=== PATIENT | female | born 1990 | race Caucasian/White ===

== ENCOUNTER 2023-09-30 10:37 | Outpatient (CLI) | payer MEDICARE, BC, SELFPAY ==
[2023-10-02 09:09] LABS: HIV Screen 4th Generation wRfx Non Reactive (Non Reactive)
[2023-10-02 12:15] LABS: Rapid Plasma Reagin Ab Titer Non Reactive titer (NonRea<1:1)
[2023-10-04 20:35] LABS: Neisseria gonorrhoeae, NAA Negative (Negative)
[2023-10-07 08:28] LABS: HBsAg Screen Negative; Hep A Ab, IGM Negative
[2023-10-07 08:29] LABS: Hep B Core Ab, IgM Negative; Trichomonas Vaginalis, NAA Negative
[2023-10-07 08:32] LABS: HSV 2 IgG, Type Spec <0.91
[2023-10-08 10:00] LABS: HCV Ab Non Reactive
== END 2023-09-30 23:59 | disposition home or self-care (01) ==
LOC: LAB.DROPOF 10-01 10:37
PROVIDERS: PCP Nurse Practitioner; Visit Provider Nurse Practitioner
DX: Z11.3 Encounter for screening for infections with a predominantly sexual mode of transmission (principal); Z11.4 Encounter for screening for human immunodeficiency virus [HIV]; Z72.51 High risk heterosexual behavior
CPT/HCPCS: 80074; 86593; 86695; 86703; 86790; 87491; 87591; 87661; G0432

== ENCOUNTER 2023-12-18 23:26 | Emergency (ER) | payer MEDICARE, BC, SELFPAY ==
[2023-12-18 23:28] VITALS: BP 124/82; PULSE 72; RESP 18; TEMP 36.9; O2SAT 95; BMI 38.3
--- NOTE | 2023-12-18 23:46 | XR_ITS ---
PROCEDURE INFORMATION: Exam: XR Right Hand Exam date and time: 12/18/2023 11:45 PM Age: 32 years old Clinical indication: Injury or trauma; Other: Punched wall; Other: Pain TECHNIQUE: Imaging protocol: Radiologic exam of the right hand. Views: 3 or more views. Total images: 3 COMPARISON: CR XR HAND RT MIN 3V 12/18/2023 11:45 PM FINDINGS: Bones/joints: No acute fracture or joint dislocation. No concerning bone lesions or calcifications. Unremarkable joint spaces. Soft tissues: Unremarkable soft tissues. IMPRESSION: Negative right hand.
--- NOTE | 2023-12-18 23:46 | XR_ITS ---
PROCEDURE INFORMATION: Exam: XR Right Wrist Exam date and time: 12/18/2023 11:45 PM Age: 32 years old Clinical indication: Injury or trauma; Other: Punched wall; Other: Pain TECHNIQUE: Imaging protocol: Radiologic exam of the right wrist. Views: 3 or more views. Total images: 3 COMPARISON: CR XR WRIST RT MIN 3V 12/18/2023 11:45 PM FINDINGS: Bones/joints: No acute fracture or joint dislocation. No concerning bone lesions or calcifications. Joint spaces are well maintained. Normal carpal alignment. Soft tissues: Unremarkable soft tissues. IMPRESSION: Negative right wrist.
--- NOTE | 2023-12-18 23:46 | XR_ITS ---
PROCEDURE INFORMATION: Exam: XR Right Forearm Exam date and time: 12/18/2023 11:45 PM Age: 32 years old Clinical indication: Injury or trauma; Other: Punched wall; Other: Pain TECHNIQUE: Imaging protocol: Radiologic exam of the right forearm. Views: 2 views. Total images: 2 COMPARISON: CR XR HAND RT MIN 3V 12/18/2023 11:45 PM FINDINGS: Bones/joints: No acute fracture or joint dislocation. No concerning bone lesions or calcifications. Joint spaces are unremarkable. Soft tissues: Unremarkable soft tissues. IMPRESSION: Negative right forearm.
--- NOTE | 2023-12-18 23:47 | HMH.EDGENADL ---
Discharge Plan Disposition Patient Disposition: Home, Self-Care Condition: Good Prescriptions Prescriptions: No Action buspirone 15 mg tablet PO DAILY Patient Comments: TAKE 1 TABLET BY MOUTH EVERY MORNING DIRECTED lamotrigine 150 mg tablet 300 mg PO DAILY Patient Comments: TAKE 2 TABLETS BY MOUTH EVERY MORNING DIRECTED naltrexone 50 mg tablet PO DAILY Patient Comments: TAKE 1 TABLET BY MOUTH ONCE DAILY DIRECTED propranolol 20 mg tablet 20 mg PO DAILY Patient Comments: TAKE 1 TABLET BY MOUTH EVERY MORNING NEEDED ibuprofen 800 mg tablet 800 mg PO Q8H Qty: 90 2RF varenicline 0.5 mg (11)- 1 mg (42) tablets,dose pack See Rx Instructions PO PER PKG DIR Qty: 53 0RF Rx Instructions: PO PER PKG DIR Lo Loestrin Fe 1 mg-10 mcg (24)/10 mcg (2) tablet 1 tab PO DAILY Qty: 28 6RF drospirenone-ethinyl estradiol [REMINGTON (28)] 3-0.02 mg tablet 1 tab PO DAILY Qty: 28 6RF Referrals Follow up/Referrals: iMmi Ordonez APRN [Primary Care Provider] - See instructions Cecilio Oviedo DO [Staff Physician] - See instructions (TTP R scaphoid without fx on XR, in spica splint, needs repeat XR for recheck scaphoid) Activity Restrictions/Add. Instructions Additional Instructions/Restrictions: You were evaluated in the ER. You are appropriate for discharge at this time. Keep the splint clean and dry, do not let it get wet, if it gets wet or the splint cracks, comes off, or you have other concerns, return to the ER for replacement. Follow-up with orthopedics in 7 to 10 days for repeat x-rays. Take Tylenol or ibuprofen if needed for pain, do not exceed recommended doses on the bottle. Regarding constipation, continue taking your stool softener and also take a one-time dose of 3 capfuls of MiraLAX. After this, continue with once daily 1 capful of MiraLAX until you are having regular, soft bowel movements. Drink plenty of water while you do this so you do not become dehydrated. Also make an appoint with your primary care physician for reevaluation of this problem in a few days. Return to the ER with new, worsening, or otherwise concerning symptoms. Clinical Impressions Clinical Impression: Pain of right thumb, Constipation Discharge ED Provider: Butler,Mikalah General Adult HPI General Chief complaint: Extremity Injury, Upper Stated complaint: AO 2230 right thumb pain Time Seen by Provider: 12/18/23 23:43 Mode of Arrival: Ambulatory Source of Information: Patient Limitations: Physical Limitations Description of Symptoms (Recalled from ER Triage Doc. by RN): Patient presented to the ED for pain to right thumb/wrist pain. Patient stated she was arguing with her significant other and went to swing an extension cord and it got caught on the door frame and pulled her thumb back and also hit the door frame. Patient rates pain 7/10 and does have some tingling but no numbness and can move thumb. History of Present Illness HPI narrative: 32-year-old female with history of histoplasmosis presents to the ER for concerns of right thumb/wrist pain. Patient states she was arguing with her significant other and swung her hand with an extension cord and it, getting her right thumb caught on the door frame. She struck her hand and thumb on the door frame but is complaining of pain primarily at the base of her thumb radiating up to the distal forearm. Patient states she has slight tingling, no numbness, she is able to flex and extend the thumb as well as fully move her hand and wrist. Patient has not taken anything for pain today and is requesting Tylenol. Later in the encounter, patient added that she has been having constipation after she took too many antidiarrheal medications. She states she has only had a few very small bowel movements in the last 4 to 5 days. She has had mild nausea but no vomiting. She continues to eat and drink normally. No dysuria, abdominal distention, or localizing abdominal pain. She reports having taken a stool softener and tried a mineral oil enema without significant success. Related Data Home Medications Medication Instructions Recorded Confirmed buspirone 15 mg tablet mg PO DAILY anxiety 12/07/23 12/07/23 lamotrigine 150 mg tablet 300 mg PO DAILY PTSD 12/07/23 12/07/23 naltrexone 50 mg tablet mg PO DAILY 12/07/23 12/07/23 propranolol 20 mg tablet 20 mg PO DAILY anxiety 12/07/23 12/07/23 Previous Rx's Medication Instructions Recorded ibuprofen 800 mg tablet 800 mg PO Q8H #90 tabs 11/25/23 drospirenone 3 mg-ethinyl 1 tab PO DAILY #28 tabs 11/26/23 estradiol 0.02 mg tablet (REMINGTON (28)) norethindrone 1 mg-ethinyl 1 tab PO DAILY #28 tabs 11/26/23 estradiol 10 mcg (24)-iron 10 mcg(2) tablet (Lo Loestrin Fe) varenicline 0.5 mg (11)-1 mg (42) See Rx Instructions PO PER PKG DIR 12/07/23 tablets in a dose pack #53 tabs Allergies Allergy/AdvReac Type Severity Reaction Status Date / Time Iodinated Contrast Media Allergy Mild Verified 12/07/23 11:40 iodine Allergy Mild Verified 12/07/23 11:40 sertraline [From Zoloft] Allergy Mild Verified 12/07/23 11:40 [facility] Disclaimer: The information contained in this section may have been updated after the patient was seen, as this information can be updated by other users. Medical History (Updated 12/19/23 @ 00:54 by Rebekah Butler MD) Tobacco dependence due to chewing tobacco Nicotine dependence Screen for STD (sexually transmitted disease) Surgical History Hx of adenoidectomy Hx of section Hx of knee surgery Hx of carpal tunnel repair Hx of tonsillectomy Hx of tubal ligation Family History (Updated 12/07/23 @ 11:48 by Nora Carrasco MA) Grandmother Coronary artery disease Diabetes Grandfather Coronary artery disease Diabetes Hypertension Father Coronary artery disease Mother Diabetes Other Heart attack Social History Smoking Status: Never smoker alcohol intake: never current occupational status: employed Travel in the last 8 weeks: Inside the [place] ROS Obtained: Yes All systems reviewed & no additional complaints except as documented Musculoskeletal Musculoskeletal: Reports arthralgias, Denies joint swelling, Denies limited range of motion, Denies numbness and Reports tingling Neurologic Neurologic: Denies numbness and Reports tingling Physical Exam General General appearance: alert and in no apparent distress Head Head exam: atraumatic and normocephalic Eye Eye exam: Present PERRL and EOMI ENT ENT exam: Present mucous membranes moist Neck Neck exam: Present normal inspection and full ROM Chest Chest inspection: Present symmetric chest wall rise Respiratory Respiratory exam: Absent respiratory distress or stridor Cardiovascular Cardiovascular exam: Present regular rate and normal rhythm Abdominal Exam Abdominal exam: Present soft; Absent distention or tenderness Extremities Exam Extremities exam: Present full ROM and tenderness (Right scaphoid, also tender along the posterior aspect of the right thumb, no deformity, range of motion intact, neurovascularly intact with brisk capillary refill); Absent joint swelling Neurological Exam Neurological exam: Present alert and oriented X3; Absent motor sensory deficit Psychiatric Psychiatric exam: Present normal affect and normal mood Skin Skin exam: Present warm and dry Medical Decision Making [place] Inquiry Pt receiving controlled substance: No Vital Signs: 12/18/23 23:28 12/19/23 01:02 Temperature 98.5 F 98.1 F Temperature Source Oral Oral Pulse Rate 78 Pulse Rate [Right Brachial] 72 Respiratory Rate 18 18 Blood Pressure 122/88 Blood Pressure [Right Arm] 124/82 Blood Pressure Mean [Right Arm] 96 02 Sat by Pulse Oximetry 95 Oxygen Delivery Method Room Air Room Air Orders (Tests/Meds): ED MEDICATIONS Discontinued Medications Generic Name Dose Route Start Last Admin Trade Name Joceq PRN Reason Stop Dose Admin Acetaminophen 1,000 mg 12/18/23 23:48 12/18/23 23:51 Acetaminophen 500mg Tab PO 12/18/23 23:49 1,000 mg ONCE ONE Administration ORDERS Category Date Time Status Hand XR right minimum 3 views [XR hand RT min 3V] Stat Exams 12/18/23 23:46 Completed XR forearm RT 2V Stat Exams 12/18/23 23:46 Completed XR wrist RT min 3V Stat Exams 12/18/23 23:46 Completed Medical Decision Narrative: In summary, this 32-year-old female presents to the emergency department today with right thumb pain. On initial evaluation patient is hemodynamically stable, afebrile, tenderness to palpation over the posterior aspect of the right thumb as well as the right scaphoid, neurovascularly intact, no deformity or obvious swelling. Differential diagnosis includes but is not limited to fracture, dislocation, scaphoid injury, sprain, soft tissue injury. Based on these concerns, I ordered x-ray imaging. Patient has history of tubal ligation. test not ordered. Also discussed constipation with the patient when she added this information later in the encounter. I believe this is a side effect of the antidiarrheal medication she has taken, abdomen is nonacute, no localizing symptoms, soft, nondistended. I do not believe she requires extensive workup for this at this time. Recommended continued use of stool softener as well as MiraLAX. Patient received Tylenol for treatment. X-ray right upper extremity personally interpreted demonstrates no acute osseous injury, see radiology read for final interpretation Patient was placed in right thumb spica splint. See procedure note. Patient was given instructions on symptomatic management, follow up instructions and referral to orthopedics, and return precautions for the emergency department. Patient indicated understanding and was discharged in stable condition. Procedures Orthopedic Splinting/Casting Injury #1: Side: right Upper Extremity Injury Location: hand Upper Extremity Immobilizer: thumb spica Additional Comments: Splint personally applied and adjusted by me Materials: soft roll, plaster, elastic bandage Neurovascularly intact before and after splinting Tolerated procedure well No post-splint imaging necessary Post Cast/Splinting Neuro Status: intact and no change Post Cast/Splinting Vasc Status: intact and no change Critical Care Critical Care Time Critical Care Time: No
[2023-12-18] MEDS: ACETAMINOPHEN 500MG TAB 1000 MG PO (23:51)
--- NOTE | 2023-12-19 00:54 | PC.NURSE ---
Placed a thumb spica slint on patient using 2in palster. Dr. Butler confirmed splint was properly placed.
[2023-12-19 01:02] VITALS: BP 122/88; PULSE 78; RESP 18; TEMP 36.7; O2SAT 99
== END 2023-12-19 01:04 | disposition home or self-care (01) ==
PROVIDERS: Emergency Provider Emergency Medicine; PCP Nurse Practitioner
DX: M79.644 Pain in right finger(s) (principal); M25.531 Pain in right wrist; X50.1XXA Overexertion from prolonged static or awkward postures, initial encounter; K59.00 Constipation, unspecified
CPT/HCPCS: 29125; 73090; 73110; 73130; 99283

== ENCOUNTER 2023-12-27 14:51 | Emergency (ER) | payer MEDICARE, BC, SELFPAY ==
[2023-12-27 14:53] VITALS: BP 125/81; PULSE 81; RESP 14; TEMP 36.7; O2SAT 100; BMI 37.0
--- NOTE | 2023-12-27 16:44 | PC.NURSE ---
ROUNDED ON PT AND OBTAINED VITALS ON PT AND MOVED HER TO ROOM 12 AT THIS TIME
--- NOTE | 2023-12-27 16:45 | XR_ITS ---
PROCEDURE INFORMATION: Exam: XR Right Hand Exam date and time: 12/27/2023 5:24 PM Age: 33 years old Clinical indication: Injury or trauma; Other: Bent thumb; Other: Pain TECHNIQUE: Imaging protocol: Radiologic exam of the right hand. Views: 3 or more views. COMPARISON: CR XR HAND RT MIN 3V 12/18/2023 11:45 PM FINDINGS: Bones/joints: No fractures, dislocations, or bone lesions. No significant joint space narrowing or widening. Soft tissues: No soft tissue gas, radiopaque foreign bodies, or masses. IMPRESSION: No acute findings in the right hand.
--- NOTE | 2023-12-27 16:51 | ED_ITS ---
<Statement entered by Kishor Nguyễn MD - 12/27/23 18:17> I was consulted by the JULIAN, and we discussed the complexity of the problems being addressed. I approved the treatment and management plan for this patient's care in the emergency department, thus performing a substantive portion of the medical decision making. Kishor Nguyễn MD Discharge Plan Disposition Patient Disposition: Home, Self-Care Condition: Good Chief Complaint: PAIN Prescriptions Prescriptions: No Action buspirone 15 mg tablet PO DAILY Patient Comments: TAKE 1 TABLET BY MOUTH EVERY MORNING DIRECTED lamotrigine 150 mg tablet 300 mg PO DAILY Patient Comments: TAKE 2 TABLETS BY MOUTH EVERY MORNING DIRECTED naltrexone 50 mg tablet PO DAILY Patient Comments: TAKE 1 TABLET BY MOUTH ONCE DAILY DIRECTED propranolol 20 mg tablet 20 mg PO DAILY Patient Comments: TAKE 1 TABLET BY MOUTH EVERY MORNING NEEDED ibuprofen 800 mg tablet 800 mg PO Q8H Qty: 90 2RF varenicline 0.5 mg (11)- 1 mg (42) tablets,dose pack See Rx Instructions PO PER PKG DIR Qty: 53 0RF Rx Instructions: PO PER PKG DIR Lo Loestrin Fe 1 mg-10 mcg (24)/10 mcg (2) tablet 1 tab PO DAILY Qty: 28 6RF drospirenone-ethinyl estradiol [REMINGTON (28)] 3-0.02 mg tablet 1 tab PO DAILY Qty: 28 6RF Referrals Follow up/Referrals: Davion Schmitz MD [Primary Care Provider] - See instructions Activity Restrictions/Add. Instructions Additional Instructions/Restrictions: Please keep your scheduled orthopedics appointment on Wednesday. Follow-up with your PCP as needed. Return to the ER as needed. Clinical Impressions Clinical Impression: Injury of right thumb Discharge ED Provider: Kishor Nguyễn General Adult HPI General Chief complaint: PAIN Stated complaint: needs new cast on arm Time Seen by Provider: 12/27/23 16:50 Mode of Arrival: Ambulatory Source of Information: Patient Limitations: No Limitations Description of Symptoms (Recalled from ER Triage Doc. by RN): pt presents to ED with c/o right thumb pain. pt reports that she has a half cast on that right thumb, but pt reports that something bumped up against her thumb and she thinks that she may have broken it. History of Present Illness HPI narrative: Patient presents for evaluation of right thumb pain. Patient injured her hand approximately 1 week ago and no acute fracture was seen at that time but patient was placed in a spica splint and referred to orthopedics and her appointment is this current Wednesday. Today however her thumb got caught in her clothing and hyperextended the thumb breaking the splint and causing her pain. She denies any numbness or tingling and has painful but full range of motion. Related Data Home Medications Medication Instructions Recorded Confirmed buspirone 15 mg tablet mg PO DAILY anxiety 12/07/23 12/07/23 lamotrigine 150 mg tablet 300 mg PO DAILY PTSD 12/07/23 12/07/23 naltrexone 50 mg tablet mg PO DAILY 12/07/23 12/07/23 propranolol 20 mg tablet 20 mg PO DAILY anxiety 12/07/23 12/07/23 Previous Rx's Medication Instructions Recorded ibuprofen 800 mg tablet 800 mg PO Q8H #90 tabs 11/25/23 drospirenone 3 mg-ethinyl 1 tab PO DAILY #28 tabs 11/26/23 estradiol 0.02 mg tablet (REMINGTON (28)) norethindrone 1 mg-ethinyl 1 tab PO DAILY #28 tabs 11/26/23 estradiol 10 mcg (24)-iron 10 mcg(2) tablet (Lo Loestrin Fe) varenicline 0.5 mg (11)-1 mg (42) See Rx Instructions PO PER PKG DIR 12/07/23 tablets in a dose pack #53 tabs Allergies Allergy/AdvReac Type Severity Reaction Status Date / Time Iodinated Contrast Media Allergy Mild Verified 12/07/23 11:40 iodine Allergy Mild Verified 12/07/23 11:40 sertraline [From Zoloft] Allergy Mild Verified 12/07/23 11:40 [facility] Disclaimer: The information contained in this section may have been updated after the patient was seen, as this information can be updated by other users. Medical History (Updated 12/27/23 @ 18:13 by ELIER Walters) Tobacco dependence due to chewing tobacco Nicotine dependence Screen for STD (sexually transmitted disease) Surgical History Hx of adenoidectomy Hx of section Hx of knee surgery Hx of carpal tunnel repair Hx of tonsillectomy Hx of tubal ligation Family History (Updated 12/07/23 @ 11:48 by Nora Carrasco MA) Grandmother Coronary artery disease Diabetes Grandfather Coronary artery disease Diabetes Hypertension Father Coronary artery disease Mother Diabetes Other Heart attack Social History Smoking Status: Current every day smoker alcohol intake: never current occupational status: employed Travel in the last 8 weeks: Inside the [place] ROS Obtained: Yes Systems reviewed as appropriate & no additional complaints except as documented Physical Exam General General appearance: alert and in no apparent distress Respiratory Respiratory exam: Present normal lung sounds bilaterally Cardiovascular Cardiovascular exam: Present regular rate and normal rhythm Extremities Exam Extremities exam: Present other (Patient has pain to palpation at the MCP joint of the first digit of the right hand but no evidence of bony deformity patient is neurovascular intact distally patient has no loss of range of motion other than being painful.) Neurological Exam Neurological exam: Present alert and oriented X3 Medical Decision Making Medical Records Medical records reviewed: Yes I reviewed the patient's medical records. [place] Inquiry Pt receiving controlled substance: No Vital Signs: 12/27/23 14:53 Temperature 98.0 F Temperature Source Oral Pulse Rate [Left Radial] 81 Respiratory Rate 14 Blood Pressure [Right Arm] 125/81 Blood Pressure Mean [Right Arm] 95 02 Sat by Pulse Oximetry 100 Oxygen Delivery Method Room Air Orders (Tests/Meds): ORDERS Category Date Time Status Hand XR right minimum 3 views [XR hand RT min 3V] Stat Exams 12/27/23 16:45 Completed Medical Decision Narrative: In summary patient is a 33-year-old female who presents to the emergency department for evaluation of right thumb injury. Patient is hemodynamically stable upon arrival, afebrile. Physical exam is remarkable for tenderness at the end CP joint of the thumb without evidence of bony deformity or loss of range of motion motor or sensory. Differential diagnosis includes sprain versus strain versus fracture. Initial workup will be conducted with plain film x-ray. Initial workup reviewed by me shows no acute fracture both today nor previously. Given this patient placed back in a premade thumb spica splint and is advised to keep her orthopedic appointment on Wednesday. Critical Care Critical Care Time Critical Care Time: No
[2023-12-27 18:24] VITALS: BP 126/68; PULSE 78; RESP 13; TEMP 36.7; O2SAT 98
== END 2023-12-27 18:25 | disposition home or self-care (01) ==
PROVIDERS: Emergency Provider Emergency Medicine; PCP Family Medicine
DX: S69.91XA Unspecified injury of right wrist, hand and finger(s), initial encounter (principal); W22.8XXA Striking against or struck by other objects, initial encounter
CPT/HCPCS: 73130; 99283

== ENCOUNTER 2024-02-06 00:13 | Emergency (ER) | payer MEDICARE, BC, SELFPAY ==
[2024-02-06 00:15] VITALS: BP 126/82; PULSE 78; RESP 20; TEMP 36.8; O2SAT 96; BMI 34.5
--- NOTE | 2024-02-06 00:28 | XR_ITS ---
PROCEDURE INFORMATION: Exam: XR Chest Exam date and time: 02/06/2024 12:32 AM Age: 33 years old Clinical indication: Cough and wheezing; Additional info: Cough, L wheeze, previous sclerosing mediastinum TECHNIQUE: Imaging protocol: Radiologic exam of the chest. Views: 2 views. COMPARISON: No relevant prior studies available. FINDINGS: Lungs: See Pleural spaces finding. Pleural spaces: Moderate right pleural effusion with adjacent parenchymal consolidation versus atelectasis. Heart/Mediastinum: No evidence of mediastinal widening or cardiac silhouette enlargement; the mediastinum and heart appear within normal limits for contour and size. Bones/joints: No evidence of acute osseous abnormalities within the visualized portions of the thoracic spine and ribs. Osseous structures appear appropriate for patient age. IMPRESSION: Moderate right pleural effusion with adjacent parenchymal consolidation versus atelectasis.
--- NOTE | 2024-02-06 00:28 | HMH.EDGENADL ---
Discharge Plan Disposition Patient Disposition: Home, Self-Care Prescriptions Prescriptions: New albuterol sulfate 90 mcg/actuation HFA aerosol inhaler 3 inh inhalation Q3H PRN (Reason: shortness of breath or wheezing) Qty: 6.7 0RF Rx Instructions: until breathing returns to target peak flow/parameters [id number] [Bromfed DM] 2-30-10 mg/5 mL syrup 5 ml PO Q6H PRN (Reason: cold symptoms) Qty: 118 0RF levofloxacin 750 mg tablet 750 mg PO DAILY 7 Days Qty: 7 0RF prednisone 50 mg tablet 50 mg PO DAILY 5 Days Qty: 5 0RF No Action buspirone 15 mg tablet PO DAILY Patient Comments: TAKE 1 TABLET BY MOUTH EVERY MORNING DIRECTED lamotrigine 150 mg tablet 300 mg PO DAILY Patient Comments: TAKE 2 TABLETS BY MOUTH EVERY MORNING DIRECTED naltrexone 50 mg tablet PO DAILY Patient Comments: TAKE 1 TABLET BY MOUTH ONCE DAILY DIRECTED propranolol 20 mg tablet 20 mg PO DAILY Patient Comments: TAKE 1 TABLET BY MOUTH EVERY MORNING NEEDED varenicline 0.5 mg (11)- 1 mg (42) tablets,dose pack See Rx Instructions PO PER PKG DIR Qty: 53 0RF Rx Instructions: PO PER PKG DIR ondansetron HCl 4 mg tablet 4 mg PO Q8H PRN (Reason: nausea and vomiting) Qty: 20 0RF ketorolac 10 mg tablet 10 mg PO Q8H PRN (Reason: pain) Qty: 10 0RF Rx Instructions: maximum total duration of 5 days from all oral, intranasal, or parenteral formulations polyethylene glycol 3350 [Miralax] 17 gram/dose powder 17 g PO DAILY Qty: 510 0RF docusate sodium [Dulcolax Stool Softener (dss)] 100 mg capsule 100 mg PO BID Qty: 60 2RF Lo Loestrin Fe 1 mg-10 mcg (24)/10 mcg (2) tablet 1 tab PO DAILY Qty: 28 6RF drospirenone-ethinyl estradiol [REMINGTON (28)] 3-0.02 mg tablet 1 tab PO DAILY Qty: 28 6RF Referrals Follow up/Referrals: Davion Schmitz MD [Primary Care Provider] - See instructions Activity Restrictions/Add. Instructions Additional Instructions/Restrictions: At this time it was felt you are safe to be discharged home. If new or worsening symptoms please do not hesitate to return the emergency department. Please take your medication as prescribed. If symptoms persist please follow-up with your family doctor in 5 to 7 days. Clinical Impressions Clinical Impression: Pneumonia Print Language Print Language: Georgian Discharge ED Provider: Kishor Nguyễn General Adult HPI General Chief complaint: Upper Respiratory Infection Stated complaint: Cough, congestion, headache, lethargic Time Seen by Provider: 02/06/24 00:19 Mode of Arrival: Ambulatory Source of Information: Patient and Relative Limitations: No Limitations Description of Symptoms (Recalled from ER Triage Doc. by RN): Patient reports productive cough, congestion, facial pain, and diarrhea since yesterday. Patient reports that there are multiple individuals with similar illness at her place of employment. Patient denies fevers at home. Has been taking dayquil at home with minimal improvement. History of Present Illness HPI narrative: Patient is a 33-year-old female past medical history of previous histoplasmosis, sclerosing mediastinum not currently needing any active management by cardiothoracic surgery per patient who presents to the emergency department for evaluation of cough and diarrhea. Onset was acute, over the last 24 hours. Positive sick contacts at work and she started that [employer] 2 days ago. Diarrhea is nonbloody. No vomiting. No other acute complaints at this time. Related Data Home Medications ?Medication ?Instructions ?Recorded ?Confirmed buspirone 15 mg tablet mg PO DAILY anxiety 12/07/23 01/28/24 lamotrigine 150 mg tablet 300 mg PO DAILY PTSD 12/07/23 01/28/24 naltrexone 50 mg tablet mg PO DAILY 12/07/23 01/28/24 propranolol 20 mg tablet 20 mg PO DAILY anxiety 12/07/23 01/28/24 Previous Rx's ?Medication ?Instructions ?Recorded
[2024-02-06 00:46] VITALS: PULSE 77
[2024-02-06 00:59] VITALS: BP 117/77; PULSE 77; RESP 16; TEMP 36.7; O2SAT 97
== END 2024-02-06 01:01 | disposition home or self-care (01) ==
PROVIDERS: Emergency Provider Emergency Medicine; PCP Family Medicine
DX: J18.9 Pneumonia, unspecified organism (principal); R05.9 Cough, unspecified; R09.81 Nasal congestion; G50.1 Atypical facial pain; R19.7 Diarrhea, unspecified; Z87.891 Personal history of nicotine dependence
CPT/HCPCS: 71046; 99283; J7620

== ENCOUNTER 2024-03-15 20:35 | Outpatient (CLI) | payer MEDICARE, BC, SELFPAY ==
[2024-03-15 21:47] LABS: HIV (1&2) Antibody Rapid NONREACTIVE (NONREACTIVE)
[2024-03-17 05:14] LABS: HCV Ab Non Reactive (Non Reactive)
== END 2024-03-15 23:59 | disposition home or self-care (01) ==
LOC: LAB.DROPOF 20:37
PROVIDERS: PCP Obstetrics & Gynecology; Visit Provider Obstetrics & Gynecology
DX: N89.8 Other specified noninflammatory disorders of vagina (principal); Z11.4 Encounter for screening for human immunodeficiency virus [HIV]
CPT/HCPCS: 86803; 87389

== ENCOUNTER 2024-03-22 14:50 | Outpatient (CLI) | payer MEDICARE, BC, SELFPAY ==
[2024-03-24 11:14] LABS: Rapid Plasma Reagin Ab Titer Non Reactive titer (NonRea<1:1)
[2024-03-24 20:14] LABS: Neisseria gonorrhoeae, NAA Negative (Negative)
== END 2024-03-22 23:59 | disposition home or self-care (01) ==
LOC: LAB 14:51
PROVIDERS: PCP Family Medicine; Visit Provider Obstetrics & Gynecology
DX: Z11.3 Encounter for screening for infections with a predominantly sexual mode of transmission (principal); N80.9 Endometriosis, unspecified; N93.9 Abnormal uterine and vaginal bleeding, unspecified; N94.6 Dysmenorrhea, unspecified; N39.3 Stress incontinence (female) (male); Z87.42 Personal history of other diseases of the female genital tract; Z72.51 High risk heterosexual behavior
CPT/HCPCS: 36415; 86593; 87491; 87591

== ENCOUNTER 2024-09-20 04:53 | Emergency (ER) | payer MEDICARE, SELFPAY ==
[2024-09-20 04:58] VITALS: BP 123/93; PULSE 104; O2SAT 97
--- NOTE | 2024-09-20 04:59 | XR_ITS ---
PROCEDURE INFORMATION: Exam: XR Chest Exam date and time: 09/20/2024 5:34 AM Age: 33 years old Clinical indication: Cough; Additional info: Cough SOA chest tightness, HX fibrosis and histo TECHNIQUE: Imaging protocol: Radiologic exam of the chest. Views: 2 views. COMPARISON: CR XR CHEST 2V 02/06/2024 12:32 AM FINDINGS: Lungs: Chronic pleural-parenchymal opacities within the right hemithorax with pleural thickening, atelectasis and fibrosis with associated volume loss, similar to the prior examination. Left lung is relatively clear. Pleural spaces: No significant pleural effusions. No pneumothorax. Heart/Mediastinum: Cardiac size is normal and mediastinal contour stable with mild shift of the cardiomediastinal silhouette toward the right. Bones/joints: Mild thoracic dextroscoliosis and spondylosis. IMPRESSION: Chronic pleural-parenchymal changes within the right hemithorax, similar in appearance to 02/06/2024. No definite acute findings.
[2024-09-20 05:00] VITALS: BP 135/87; PULSE 101; O2SAT 96
[2024-09-20 05:01] VITALS: BP 123/93; PULSE 104; RESP 16; TEMP 36.8; O2SAT 97; BMI 29.6
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
[2024-09-20 05:10] VITALS: PULSE 92; PULSE 97
[2024-09-20 05:15] VITALS: BP 135/87; PULSE 96; RESP 18; O2SAT 100
[2024-09-20 05:19] LABS: Adenovirus,PCR Not Detected (NotDetected); Bordetella Pertussis Not Detected (NotDetected); Chlamydophila Pneumoniae, PCR Not Detected (NotDetected); Coronavirus 19, PCR Not Detected (NotDetected); Coronavirus 229E Not Detected (NotDetected); Coronavirus NL63 Not Detected (NotDetected); Coronavirus OC43 Not Detected (NotDetected); Coronovirus HKU1,PCR Not Detected (NotDetected); Human Metapneumovirus Not Detected (NotDetected); Influenza A, PCR Not Detected (NotDetected); Influenza AH1, 2009 Not Detected (NotDetected); Influenza AH1, PCR Not Detected (NotDetected); Influenza AH3,PCR Not Detected (NotDetected); Influenza B, PCR Not Detected (NotDetected); Mycoplasma Pneumoniae, PCR Not Detected (NotDetected); Parainfluenza 1, PCR Not Detected (NotDetected); Parainfluenza 2, PCR Not Detected (NotDetected); Parainfluenza 3, PCR Not Detected (NotDetected); Parainfluenza 4, PCR Not Detected (NotDetected); Respiratory Syncytial Virus Not Detected (NotDetected); Rhinovirus/Enterovirus Not Detected (NotDetected)
[2024-09-20 05:24] LABS: VBG Base Excess -0.6 mmol/L (-2.4-2.3); VBG HCO3 23.9 mmol/L (23-30); VBG Oxygen Saturation 98.3 % (50-70); VBG PCO2 37.5 mmol/L (35-51); VBG PH 7.42 mmol/L (7.31-7.41)
[2024-09-20 05:26] LABS: Basophils # 0.1 K/mm3 (0-0.2); Basophils % 0.4 % (0.1-2.0); Eosinophils % 0.3 % (0.1-12.0); Hematocrit 35.4 % (37.0-47.0); Hemoglobin 12.7 g/dL (12.2-16.2); Lymphocytes # 1.7 K/mm3 (0.7-4.5); Lymphocytes % 13.9 % (10-50); Mean Corpuscular HGB Conc 35.9 g/dL (31.8-35.4); Mean Corpuscular Hemoglobin 30.7 pg (27.0-31.2); Mean Corpuscular Volume 85.5 fl (81-99); Mean Platelet Volume 11.6 fl (7.4-10.4); Monocytes # 0.8 K/mm3 (0.1-1.0); Monocytes % 6.9 % (1.7-9.3); Neutrophils # 9.5 K/mm3 (1.8-7.8); Neutrophils % 78.3 % (37.0-80.0); Platelet Count 53 K/mm3 (142-424); Red Blood Count 4.14 M/mm3 (4.20-5.40); Red Cell Distribution Width 12.4 % (11.5-17.5); White Blood Count 12.2 K/mm3 (4.8-10.8)
[2024-09-20 05:30] LABS: Chloride 104 mmol/L (98-107); Potassium 3.9 mmoL/L (3.5-5.1); Sodium 136 mmol/L (136-145)
[2024-09-20] MEDS: ACETAMINOPHEN 500MG TAB 1000 MG PO (05:31)
[2024-09-20] MEDS: IBUPROFEN 600 MG TABLET PO (05:31)
[2024-09-20 05:33] LABS: Alanine Aminotransferase 25 U/L (12-78); Albumin/Globulin Ratio 1.3 (1.1-1.8); Alkaline Phosphatase 89 U/L (38-126); Anion Gap 12.9 mEq/L (5-15); Aspartate Amino Transferase 41 U/L (14-36); Bilirubin,Total 0.8 mg/dl (0.2-1.3); Blood Urea Nitrogen 10 mg/dl (7-17); Carbon Dioxide 23 mmol/L (22.0-30.0); Creatinine Clearance Estimated 147 mL/min (50-200); Estimated Glomerular Filt Rate 114 ml/min (>60); GFR (African American) 138 ML/MIN (>60); Globulin 3.2 g/dL (1.3-3.2); Glucose 91 mg/dl (74-100); Total Protein,Serum 7.2 g/dl (6.3-8.2)
--- NOTE | 2024-09-20 05:36 | ECG_ITS ---
APPROVED REPORT Exam: Resting ECG HR:99 bpm ECG Measurements Heart Rate 99 AXES IN 170 P 58 QRSd 81 QRS 41 QT 336 T 39 QTc 393 Conclusion SINUS RHYTHM NONSPECIFIC ST ELEVATION [0.05+ mV ST ELEVATION] BORDERLINE ECG UNCONFIRMED REPORT Electronically signed by : ALBERTO VERDE, 09/21/2024 06:25:59
[2024-09-20 05:38] LABS: D-Dimer 0.63 ug/mL (0.0-0.5); HCG Qualitative, Serum Negative (Negative)
[2024-09-20 05:45] LABS: Troponin I < 0.01 ng/ml (0.00-0.034)
[2024-09-20] MEDS: AMOXICILLIN/CLAVULANATE POTASSIUM 875/125MG TABLET 1 EACH PO (05:54)
[2024-09-20 05:57] VITALS: BP 135/87; PULSE 97; RESP 18; TEMP 36.7; O2SAT 99
== END 2024-09-20 06:03 | disposition home or self-care (01) ==
PROVIDERS: Emergency Provider Emergency Medicine
DX: R06.02 Shortness of breath (principal); R05.9 Cough, unspecified; R07.89 Other chest pain; R68.83 Chills (without fever); R07.1 Chest pain on breathing; Z72.0 Tobacco use
CPT/HCPCS: 71046; 80053; 82803; 84484; 84703; 85025; 85378; 87633; 93005; 99284

== ENCOUNTER 2024-10-18 23:11 | Emergency (ER) | payer MEDICARE, OTHER, SELFPAY ==
[2024-10-18 23:17] VITALS: BP 132/82; PULSE 90; RESP 18; TEMP 36.6; O2SAT 99; BMI 28.5
--- OUTSIDE RECORDS SUMMARY | 2024-10-18 23:18 | XMS_ITS ---
Author Organization Unknown [facility] Start Date Provider Encounter for Check-up [id number] [facility]
--- NOTE | 2024-10-18 23:28 | ED_ITS ---
Discharge Plan Disposition Patient Disposition: Home, Self-Care Prescriptions Prescriptions: No Action buspirone 15 mg tablet PO DAILY Patient Comments: TAKE 1 TABLET BY MOUTH EVERY MORNING DIRECTED lamotrigine 150 mg tablet 300 mg PO DAILY Patient Comments: TAKE 2 TABLETS BY MOUTH EVERY MORNING DIRECTED naltrexone 50 mg tablet PO DAILY Patient Comments: TAKE 1 TABLET BY MOUTH ONCE DAILY DIRECTED propranolol 20 mg tablet 20 mg PO DAILY Patient Comments: TAKE 1 TABLET BY MOUTH EVERY MORNING NEEDED ondansetron HCl 4 mg tablet 4 mg PO Q8H PRN (Reason: nausea and vomiting) Qty: 20 0RF azithromycin 250 mg tablet See Rx Instructions PO .COMPLEX Qty: 6 0RF Rx Instructions: take 500 mg today (day 1), then 250 mg for 4 days (days 2-5) albuterol sulfate 90 mcg/actuation HFA aerosol inhaler 2 puff inhalation Q4-6H PRN (Reason: shortness of breath or wheezing) Qty: 8.5 2RF benzonatate 100 mg capsule 100 mg PO TID PRN (Reason: cough) Qty: 30 0RF methylprednisolone [Medrol (You)] 4 mg tablets,dose pack 4 mg PO DAILY Qty: 21 0RF polyethylene glycol 3350 [Miralax] 17 gram/dose powder 17 g PO DAILY Qty: 510 0RF docusate sodium [Dulcolax Stool Softener (dss)] 100 mg capsule 100 mg PO BID Qty: 60 2RF drospirenone-ethinyl estradiol [REMINGTON (28)] 3-0.02 mg tablet 1 tab PO DAILY Qty: 28 6RF amoxicillin-pot clavulanate 875-125 mg tablet 1 tab PO BID Qty: 14 0RF azithromycin 250 mg tablet See Rx Instructions .ROUTE .COMPLEX Qty: 6 0RF Rx Instructions: For 250 mg dose pack: take 500 mg today (day 1), then 250 mg for 4 days (days 2-5) albuterol sulfate 90 mcg/actuation HFA aerosol inhaler 3 inh inhalation Q3H PRN (Reason: shortness of breath or wheezing) Qty: 6.7 0RF Rx Instructions: until breathing returns to target peak flow/parameters levofloxacin 750 mg tablet 750 mg PO DAILY 7 Days Qty: 7 0RF Referrals Follow up/Referrals: Provider,Referral, MD [Primary Care Provider] - See instructions Activity Restrictions/Add. Instructions Additional Instructions/Restrictions: Please use eardrops for your ear infection. 4 drops in the right ear 4 times per day. Treat for 7 days. Clinical Impressions Clinical Impression: Otitis externa Qualifiers: Otitis externa type: other infective Chronicity: acute Laterality: right Qualified Code(s): H60.391 - Other infective otitis externa, right ear Print Language Print Language: Czech Discharge ED Provider: Chintan Abbott General Adult HPI General Chief complaint: Ear Stated complaint: R ear pain Time Seen by Provider: 10/18/24 23:15 Mode of Arrival: Ambulatory Source of Information: Patient Description of Symptoms (Recalled from ER Triage Doc. by RN): Pt presents for evaluation of an ear ache that started today History of Present Illness HPI narrative: 33-year-old female presents for right ear pain. It is ongoing for the last few hours. Denies any changes in hearing. Reports that she sometimes uses Q-tips. Related Data Home Medications ?Medication ?Instructions ?Recorded ?Confirmed buspirone 15 mg tablet mg PO DAILY anxiety 12/07/23 05/05/24 lamotrigine 150 mg tablet 300 mg PO DAILY PTSD 12/07/23 05/05/24 naltrexone 50 mg tablet mg PO DAILY 12/07/23 05/05/24 propranolol 20 mg tablet 20 mg PO DAILY anxiety 12/07/23 05/05/24 Previous Rx's ?Medication ?Instructions ?Recorded drospirenone 3 mg-ethinyl 1 tab PO DAILY #28 tabs 11/26/23 estradiol 0.02 mg tablet (REMINGTON (28)) ondansetron HCl 4 mg tablet 4 mg PO Q8H PRN nausea and 01/24/24 vomiting #20 tabs docusate sodium 100 mg capsule 100 mg PO BID #60 caps 01/28/24 (Dulcolax Stool Softener (docusate)) polyethylene glycol 3350 17 17 g PO DAILY #510 grams 01/28/24 gram/dose oral powder (Miralax) albuterol sulfate 90 mcg/actuation 3 inh inhalation Q3H PRN shortness 02/06/24 aerosol inhaler of breath or wheezing #6.7 grams levofloxacin 750 mg tablet 750 mg PO DAILY 7 days #7 tabs 02/06/24 albuterol sulfate 90 mcg/actuation 2 puff inhalation Q4-6H PRN 05/05/24 aerosol inhaler shortness of breath or wheezing #8.5 grams azithromycin 250 mg tablet See Rx Instructions PO .COMPLEX #6 05/05/24 tabs benzonatate 100 mg capsule 100 mg PO TID PRN cough #30 caps 05/05/24 methylprednisolone 4 mg tablets in 4 mg PO DAILY #21 tabs 05/05/24 a dose pack (Medrol (You)) amoxicillin 875 mg-potassium 1 tab PO BID #14 tabs 09/20/24 clavulanate 125 mg tablet azithromycin 250 mg tablet See Rx Instructions PO .COMPLEX #6 09/20/24 tabs Allergies Allergy/AdvReac Type Severity Reaction Status Date / Time Iodinated Contrast Media Allergy Mild Verified 05/05/24 13:53 iodine Allergy Mild Verified 05/05/24 13:53 sertraline (From Zoloft) Allergy Mild Verified 05/05/24 13:53 [facility] Disclaimer: The information contained in this section may have been updated after the patient was seen, as this information can be updated by other users. Medical History Dysmenorrhea Tobacco dependence due to chewing tobacco Nicotine dependence Screen for STD (sexually transmitted disease) Surgical History Hx of adenoidectomy Hx of section Hx of knee surgery Hx of carpal tunnel repair Hx of tonsillectomy Hx of tubal ligation Family History Diabetes Grandmother Grandfather Mother Coronary artery disease Grandmother Grandfather Father Heart attack Hypertension Grandfather Social History Smoking Status: Never smoker alcohol intake: never current occupational status: employed Travel in the last 8 weeks?: Inside the [place] Have you lived/traveled outside [place] in past 30 days?: No Contact w/someone who lives/traveled outside US past 30 days?: No Exposure to someone with infectious disease in past 14 days?: No Do you have a fever (greater than 100.4 F or 38 C)?: No Have you tested positive for COVID-19?: No Exposed to someone with COVID-19 in past 14 days?: No Do you have a sore throat?: No Do you have a cough?: No Do you have any weakness?: No Do you have any diarrhea?: No Are you experiencing any unusual bleeding?: No Do you have any muscle aches/pain?: No Do you have any abdominal pain?: No Are you experiencing loss of taste or smell?: No Other Medical History Have you received the Pneumonia Vaccine: Yes ROS Obtained: Yes All systems reviewed & no additional complaints except as documented Physical Exam General General appearance: alert and in no apparent distress Head Head exam: atraumatic and normocephalic Eye Eye exam: Present normal appearance, PERRL and EOMI ENT ENT exam: Present normal oropharynx, TM's normal bilaterally, normal external ear exam and other (Right external auditory canal is erythematous and mildly edematous) Neck Neck exam: Present normal inspection and full ROM Chest Chest inspection: Present normal inspection and symmetric chest wall rise; Absent tenderness Respiratory Respiratory exam: Present normal lung sounds bilaterally; Absent respiratory distress Cardiovascular Cardiovascular exam: Present regular rate and normal rhythm Abdominal Exam Abdominal exam: Present soft; Absent distention, tenderness or guarding Extremities Exam Extremities exam: Present normal inspection; Absent edema or joint swelling Back Exam Back exam: Present normal inspection; Absent tenderness Neurological Exam Neurological exam: Present alert and oriented X3; Absent motor sensory deficit Psychiatric Psychiatric exam: Present normal affect and normal mood Skin Skin exam: Present warm, dry and normal color Lymphatic Lymphatic Findings: no adenopathy Medical Decision Making Medical Records Medical records reviewed: Yes I reviewed the patient's medical records. Screening: Per USPSTF and CDC recommendations, given the prevalence of disease in our region, it is our hospital?s policy to screen for HIV and viral Hepatitis for all patients aged 18 and over and those with ongoing risk factors. [place] Inquiry Pt receiving controlled substance: No [place] was queried for this patient: No Vital Signs: 10/18/24 23:17 Temperature 97.8 F Temperature Source Oral Pulse Rate [Right] 90 Respiratory Rate 18 Blood Pressure [Right Arm] 132/82 Blood Pressure Mean [Right Arm] 98 Blood Pressure Source [Right Arm] Automatic Cuff Blood Pressure Position [Right Arm] Sitting 02 Sat by Pulse Oximetry 99 Oxygen Delivery Method Room Air Lab Data Lab results reviewed: Yes I reviewed the patient's lab results. Orders (Tests/Meds): ED MEDICATIONS Discontinued Medications Generic Name Dose Route Start Last Admin Trade Name Precious PRN Reason Stop Dose Admin Neomycin/Polymyxin/Hydrocortisone 10 ml 10/18/24 23:30 10/18/24 23:34 [id number] Otic Susp 10ml OT 10/18/24 23:31 1 drp ONCE ONE Administration Medical Decision Narrative: 33-year-old female without significant past medical history presents for a few hours of right ear pain.. History was obtained via interactive discussion with patient. On arrival, patient is [afebrile, hemodynamically stable, satting appropriately, alert, oriented x4, GCS 15], moving all extremities spontaneousl y. Full physical exam performed and significant for right external auditory canal is inflamed and erythematous, TMs normal bilaterally, no evidence of mastoiditis Differential includes but is not limited to otitis media, otitis externa, mastoiditis. Presentation is consistent with otitis externa. Patient given neomycin polymyxin hydrocortisone otic drops and discharged in stable condition. Procedures Risk/Benefits of Procedure(s) Were Explained: Yes Critical Care Critical Care Time Critical Care Time: No
[2024-10-18] MEDS: NEOMYCIN-POLYMYXIN-HC OTIC SUSP 10ML 10 ML OT (23:34)
[2024-10-18 23:37] VITALS: BP 132/82; PULSE 84; RESP 18; TEMP 36.7; O2SAT 96
== END 2024-10-18 23:37 | disposition home or self-care (01) ==
PROVIDERS: Emergency Provider Emergency Medicine
DX: H60.391 Other infective otitis externa, right ear (principal); H92.01 Otalgia, right ear
CPT/HCPCS: 99283

== ENCOUNTER 2024-11-15 12:15 | Outpatient (CLI) | payer MEDICARE, MEDICAID, SELFPAY ==
[2024-11-15 18:26] LABS: MANUAL DIFFERENTIAL MANUAL DIFFERENTIAL (MANUAL DIFF)
[2024-11-15 18:26] LABS: Microscopic, Urine URINE MICROSCOPIC (MICROSCOPIC)
[2024-11-15 18:53] LABS: Basophils % 0.4 % (0.1-2.0); Eosinophils # 0.1 Kmm3 (0.0-0.4); Hematocrit 39.1 % (37.0-47.0); Hemoglobin 13.3 g/dL (12.2-16.2); Lymphocytes # 1.4 K/mm3 (0.7-4.5); Lymphocytes % 18.9 % (10-50); Mean Corpuscular Hemoglobin 30.6 pg (27.0-31.2); Mean Corpuscular Volume 90.1 fl (81-99); Mean Platelet Volume 14.3 fl (7.4-10.4); Monocytes # 0.3 K/mm3 (0.1-1.0); Monocytes % 4.5 % (1.7-9.3); Neutrophils # 5.5 K/mm3 (1.8-7.8); Neutrophils % 75.1 % (37.0-80.0); Red Blood Count 4.34 M/mm3 (4.20-5.40); Red Cell Distribution Width 13.2 % (11.5-17.5); White Blood Count 7.3 K/mm3 (4.8-10.8)
[2024-11-15 19:05] LABS: INR 0.97 (0.9-1.1); Prothrombin Time 10.8 seconds (10.1-12.5)
[2024-11-15 19:07] LABS: Eosinophils % 3 % (0-3); Lymphocytes % 22 % (10-50); Neutrophils % 75 % (42-76); Total Cells Counted 100
[2024-11-15 19:08] LABS: RBC Morphology Normal
[2024-11-15 19:09] LABS: Platelet Estimate Marked Decrease
[2024-11-15 19:16] LABS: Platelet Count 7 K/mm3 (142-424)
[2024-11-15 19:57] LABS: Alanine Aminotransferase 17 U/L (12-78); Albumin Level 3.9 g/dl (3.5-5.0); Albumin/Globulin Ratio 1.4 (1.1-1.8); Alkaline Phosphatase 64 U/L (38-126); Anion Gap 9.1 mEq/L (5-15); Aspartate Amino Transferase 27 U/L (14-36); Bilirubin,Total 0.5 mg/dl (0.2-1.3); Blood Urea Nitrogen 10 mg/dl (7-17); Calcium 8.9 mg/dl (8.4-10.2); Carbon Dioxide 31 mmol/L (22.0-30.0); Chloride 104 mmol/L (98-107); Estimated Glomerular Filt Rate 114 ml/min (>60); GFR (African American) 138 ML/MIN (>60); Globulin 2.7 g/dL (1.3-3.2); Glucose 84 mg/dl (74-100); Potassium 4.1 mmoL/L (3.5-5.1); Sodium 140 mmol/L (136-145); Total Protein,Serum 6.6 g/dl (6.3-8.2)
[2024-11-15 20:27] LABS: Thyroid Stimulating Hormone 0.62 uIU/mL (0.465-4.68)
[2024-11-15 20:46] LABS: Vitamin B12 881 pg/mL (239-931)
[2024-11-15 21:23] LABS: Appearance,Urine CLEAR (Clear); Bilirubin,Urine Negative (Negative); Blood, Urine 1+ (Negative); Color,Urine YELLOW (Yellow); Glucose,Urine (UA) Negative (Negative); Ketones,Urine Negative (Negative); Leukocyte Esterase,Urine Negative (Negative); Nitrate,Urine Negative (Negative); PH,Urine 7.5 (5.0-8.5); Protein,Urine Negative (Negative); Urobilinogen,Urine 0.2 EU/dl (0.2)
[2024-11-15 21:38] LABS: Bacteria,Urine 4+ /lpf; Mucus,Urine 4+ /lpf; RBC,Urine Occasional #/hpf (0-3); Squamous Epithelial Cell,Urine 20-50 #/hpf (0-5); WBC,Urine Occasional #/hpf (0-3)
== END 2024-11-15 23:59 | disposition home or self-care (01) ==
LOC: LAB.DROPOF 11-16 13:21
PROVIDERS: PCP Nurse Practitioner; Visit Provider Nurse Practitioner
DX: R23.3 Spontaneous ecchymoses (principal)
CPT/HCPCS: 80053; 81001; 82607; 84443; 85007; 85014; 85018; 85048; 85049; 85610; 87086

== ENCOUNTER 2024-11-15 22:24 | Emergency (ER) | payer MEDICARE, MEDICAID, SELFPAY ==
[2024-11-15 22:38] VITALS: BP 115/85; PULSE 89; RESP 18; TEMP 36.7; O2SAT 94; BMI 28.9
[2024-11-15 23:44] LABS: Basophils % 0.4 % (0.1-2.0); Eosinophils # 0.1 Kmm3 (0.0-0.4); Eosinophils % 1.4 % (0.1-12.0); Hematocrit 36.5 % (37.0-47.0); Hemoglobin 12.7 g/dL (12.2-16.2); Immature Granulocytes % 0.1 %; Lymphocytes # 1.9 K/mm3 (0.7-4.5); Mean Corpuscular HGB Conc 34.8 g/dL (31.8-35.4); Mean Corpuscular Hemoglobin 30.6 pg (27.0-31.2); Monocytes # 0.4 K/mm3 (0.1-1.0); Monocytes % 6.2 % (1.7-9.3); Neutrophils # 4.5 K/mm3 (1.8-7.8); Neutrophils % 64.9 % (37.0-80.0); Nucleated Red Blood Cells # 0 10^3/uL; Nucleated Red Blood Cells % 0 %; Red Blood Count 4.15 M/mm3 (4.20-5.40); Red Cell Distribution Width 13.1 % (11.5-17.5); Red Cell Distribution Width-SD 42.1 fL
[2024-11-15 23:46] LABS: Mean Platelet Volume 13.7 fl (7.4-10.4); Platelet Count 17 K/mm3 (142-424)
[2024-11-15 23:54] LABS: Immature Granulocytes # 0.01 10^3uL
[2024-11-15 23:55] LABS: Alanine Aminotransferase 17 U/L (12-78); Albumin/Globulin Ratio 1.5 (1.1-1.8); Alkaline Phosphatase 57 U/L (38-126); Anion Gap 8.8 mEq/L (5-15); Aspartate Amino Transferase 33 U/L (14-36); Bilirubin,Total 0.7 mg/dl (0.2-1.3); Blood Urea Nitrogen 8 mg/dl (7-17); Calcium 8.8 mg/dl (8.4-10.2); Carbon Dioxide 28 mmol/L (22.0-30.0); Chloride 103 mmol/L (98-107); Creatinine Clearance Estimated 143 mL/min (50-200); Estimated Glomerular Filt Rate 114 ml/min (>60); GFR (African American) 138 ML/MIN (>60); Globulin 2.6 g/dL (1.3-3.2); Glucose 92 mg/dl (74-100); Lactate Dehydrogenase 287 U/L (313-618); Potassium 3.8 mmoL/L (3.5-5.1); Sodium 136 mmol/L (136-145); Total Protein,Serum 6.6 g/dl (6.3-8.2)
[2024-11-16 00:06] LABS: Activated Partial Thrombo Time 21.3 seconds (22.8-30.6); INR 1.99 (0.9-1.1)
[2024-11-16 00:25] LABS: Magnesium 1.6 mg/dl (1.6-2.3); Phosphorous 3.3 mg/dl (2.5-4.5)
--- NOTE | 2024-11-16 01:57 | HMH.EDGENADL ---
Discharge Plan Disposition Patient Disposition: Xfer Short-Term Hosp Prescriptions Prescriptions: No Action buspirone 15 mg tablet PO DAILY Patient Comments: TAKE 1 TABLET BY MOUTH EVERY MORNING DIRECTED lamotrigine 150 mg tablet 300 mg PO DAILY Patient Comments: TAKE 2 TABLETS BY MOUTH EVERY MORNING DIRECTED naltrexone 50 mg tablet PO DAILY Patient Comments: TAKE 1 TABLET BY MOUTH ONCE DAILY DIRECTED propranolol 20 mg tablet 20 mg PO DAILY Patient Comments: TAKE 1 TABLET BY MOUTH EVERY MORNING NEEDED albuterol sulfate 90 mcg/actuation HFA aerosol inhaler 2 puff inhalation Q4-6H PRN (Reason: shortness of breath or wheezing) Qty: 8.5 2RF polyethylene glycol 3350 [Miralax] 17 gram/dose powder 17 g PO DAILY Qty: 510 0RF docusate sodium [Dulcolax Stool Softener (dss)] 100 mg capsule 100 mg PO BID Qty: 60 2RF drospirenone-ethinyl estradiol [REMINGTON (28)] 3-0.02 mg tablet 1 tab PO DAILY Qty: 28 6RF Referrals Follow up/Referrals: Mimi Ordonez APRN [Primary Care Provider, [facility]] - See instructions Clinical Impressions Clinical Impression: Thrombocytopenia Stand Alone Forms Stand Alone Forms: Transfer Record - ED Print Language Print Language: [place] Discharge ED Provider: Patrice Faulkner General Adult HPI General Chief complaint: Recheck/Abnormal Lab/Rx Stated complaint: Sent by Dr. Coleman Platelet Transfusion Time Seen by Provider: 11/16/24 00:00 Mode of Arrival: Ambulatory Source of Information: Patient Description of Symptoms (Recalled from ER Triage Doc. by RN): Pt was advised by Dr. Coleman to come in for evaluation of PLT level of 7, and to receive a plt transfusion History of Present Illness HPI narrative: 33-year-old female with history of pulmonary fibrosis, tobacco use, endometriosis presents to the ER at the recommendation of her PCP for low platelets. Patient reports for multiple weeks she has been having easy bruising and shows me multiple bruises on her upper and lower extremities that were from minimal trauma. She also shows me areas of petechiae that she describes are from scratching. Patient states she went to her PCP today and when she had labs they called back saying she needed to go to the hospital for a platelet transfusion so she came to the ER. Review of PCP records also demonstrate patient has concerns about eating disorder. She states she has been told by her psychiatrist that she has an eating disorder and she reports losing over 100 pounds in the last year and a half. She states she will feel hungry but only eat 1 or 2 bites of food and then be extremely averse to food. She also states that she is obsessive about the scale. Family at bedside states she still thinks that she is 300 pounds . Patient denies binging or purging. Patient explicitly asked to be transferred to [facility] if she needs transfer stating I hate [place] , and reports that she refuses to go to any facility in [place]. She also reports she has seen Dr. Driver with [facility] pulmonology and is establishing care with the [facility] eating disorder team. No recent fevers, she states she feels cold all the time, no abdominal pain, vomiting, or diarrhea Related Data Home Medications ?Medication ?Instructions ?Recorded ?Confirmed buspirone 15 mg tablet mg PO DAILY anxiety 12/07/23 11/15/24 lamotrigine 150 mg tablet 300 mg PO DAILY PTSD 12/07/23 11/15/24 naltrexone 50 mg tablet mg PO DAILY 12/07/23 11/15/24 propranolol 20 mg tablet 20 mg PO DAILY anxiety 12/07/23 11/15/24 Previous Rx's ?Medication ?Instructions ?Recorded drospirenone 3 mg-ethinyl 1 tab PO DAILY #28 tabs 11/26/23 estradiol 0.02 mg tablet (REMINGTON (28)) docusate sodium 100 mg capsule 100 mg PO BID #60 caps 01/28/24 (Dulcolax Stool Softener (docusate)) polyethylene glycol 3350 17 17 g PO DAILY #510 grams 01/28/24 gram/dose oral powder (Miralax) albuterol sulfate 90 mcg/actuation 2 puff inhalation Q4-6H PRN 05/05/24 aerosol inhaler shortness of breath or wheezing #8.5 grams Allergies Allergy/AdvReac Type Severity Reaction Status Date / Time Iodinated Contrast Media Allergy Mild Verified 11/15/24 11:39 iodine Allergy Mild Verified 11/15/24 11:39 sertraline (From Zoloft) Allergy Mild Verified 11/15/24 11:39 [facility] Disclaimer: The information contained in this section may have been updated after the patient was seen, as this information can be updated by other users. Medical History (Updated 11/16/24 @ 04:09 by Rebekah Butler MD) Spontaneous ecchymoses Dysmenorrhea Tobacco dependence due to chewing tobacco Nicotine dependence Screen for STD (sexually transmitted disease) Surgical History Hx of adenoidectomy Hx of section Hx of knee surgery Hx of carpal tunnel repair Hx of tonsillectomy Hx of tubal ligation Family History Grandmother Coronary artery disease Diabetes Grandfather Coronary artery disease Diabetes Hypertension Father Coronary artery disease Mother Diabetes Other Heart attack Social History Smoking Status: Never smoker alcohol intake: never current occupational status: employed Travel in the last 8 weeks?: Inside the [place] Have you lived/traveled outside US in past 30 days?: No Contact w/someone who lives/traveled outside US past 30 days?: No Exposure to someone with infectious disease in past 14 days?: No Do you have a fever (greater than 100.4 F or 38 C)?: No Have you tested positive for COVID-19?: No Exposed to someone with COVID-19 in past 14 days?: No Do you have a sore throat?: No Do you have a cough?: No Do you have any weakness?: No Do you have any diarrhea?: No Are you experiencing any unusual bleeding?: No Do you have any muscle aches/pain?: No Do you have any abdominal pain?: No Are you experiencing loss of taste or smell?: No Other Medical History Have you received the Pneumonia Vaccine: Yes ROS Obtained: Yes Systems reviewed as appropriate & no additional complaints except as documented per HPI Physical Exam General General appearance: alert and in no apparent distress Comment: Chronically ill-appearing Head Head exam: atraumatic and normocephalic Eye Eye exam: Present PERRL and EOMI ENT ENT exam: Present mucous membranes moist Neck Neck exam: Present normal inspection and full ROM Chest Chest inspection: Present symmetric chest wall rise Respiratory Respiratory exam: Present normal lung sounds bilaterally; Absent respiratory distress or stridor Cardiovascular Cardiovascular exam: Present regular rate and normal rhythm Abdominal Exam Abdominal exam: Present soft; Absent distention or tenderness Extremities Exam Extremities exam: Present full ROM Neurological Exam Neurological exam: Present alert and oriented X3; Absent motor sensory deficit Psychiatric Psychiatric exam: Present normal affect and normal mood Skin Skin exam: Present warm, dry and other (Multiple areas of very stage ecchymosis on the upper and lower extremities. Patient also has a hematoma on the right glute that she reports has been present for couple days with minimal trauma. Streaks of petechiae on the left thigh from scratching) Medical Decision Making Medical Records Medical records reviewed: Yes I reviewed the patient's medical records. Screening: Per USPSTF and CDC recommendations, given the prevalence of disease in our region, it is our hospital?s policy to screen for HIV and viral Hepatitis for all patients aged 18 and over and those with ongoing risk factors. [place] Inquiry Pt receiving controlled substance: No Vital Signs: 11/15/24 22:38 Temperature 98.0 F Temperature Source Temporal Artery Scan Pulse Rate [Right] 89 Respiratory Rate 18 Blood Pressure [Right Arm] 115/85 Blood Pressure Mean [Right Arm] 95 Blood Pressure Source [Right Arm] Automatic Cuff Blood Pressure Position [Right Arm] Sitting 02 Sat by Pulse Oximetry 94 L Oxygen Delivery Method Room Air Lab Data Lab Results 11/15/24 00:00: Phosphorus 3.3, Magnesium 1.6 11/15/24 23:25: WBC 7.0, RBC 4.15 L, Hgb 12.7, Hct 36.5 L, MCV 88.0, MCH 30.6, MCHC 34.8, RDW 13.1, Plt Count 17 L* D, MPV 13.7 H, Neut % (Auto) 64.9, Lymph % (Auto) 27.0, [place] % (Auto) 6.2, Eos % (Auto) 1.4, Baso % (Auto) 0.4, Neut # (Auto) 4.5, Lymph # (Auto) 1.9, [place] # (Auto) 0.4, Eos # (Auto) 0.1, Baso # (Auto) 0.0, PT 21.0 H, INR 1.99 H, APTT 21.3 L, Sodium 136, Potassium 3.8, Chloride 103, Carbon Dioxide 28, Anion Gap 8.8, BUN 8, Creatinine 0.60, Estimated Creat Clear 143, Estimated GFR 114, Est GFR ( Amer) 138, Glucose 92, Uric Acid 4.0, Calcium 8.8, Total Bilirubin 0.7, AST 33, ALT 17, Alkaline Phosphatase 57, Lactate Dehydrogenase 287 L, Total Protein 6.6, Albumin 4.0, Globulin 2.6, Albumin/Globulin Ratio 1.5 11/15/24 23:25 11/15/24 23:25 Orders (Tests/Meds): ORDERS Category Date Time Status CBC w/Auto Diff [Complete Blood Count Auto Diff] Stat Lab 11/15/24 23:25 Results CMP [Comprehensive Metabolic Panel] Stat Lab 11/15/24 23:25 Completed LDH [Lactate Dehydrogenase] Stat Lab 11/15/24 23:25 Completed Magnesium Stat Lab 11/16/24 00:11 Completed PT INR [Prothrombin Time INR] Stat Lab 11/15/24:25 Completed PTT [Activated Partial Thrombo Time] Stat Lab 11/15/24 23:25 Completed Peripheral Smear Review Stat Lab 11/15/24 23:25 Results Phosphorous Stat Lab 11/16/24 00:11 Completed Uric Acid Stat Lab 11/15/24 23:25 Completed Medical Decision Narrative: In summary, this 33-year-old female with comorbidities described in the HPI which may not be at goal therapy presents to the emergency department today with easy bruising, low platelets at the recommendation of PCP. On initial evaluation patient is hemodynamically stable, afebrile, GCS 15, physical exam notable for multiple areas of varying aged ecchymosis from minimal trauma. Differential diagnosis includes but is not limited to thrombocytopenia, ITP, malignancy, coagulopathy, nutritional deficiency, eating disorder, among others. Based on these concerns, I ordered serum labs, coags. Labs personally reviewed demonstrate no leukocytosis or anemia, thrombocytopenia present with platelets 17, up from 7 previously without changes in the other cell lines. PT/INR elevated APTT low, CMP nonactionable, LDH slightly low at 287, uric acid normal at 4.0, UA negative for findings of infection but contaminated with squamous cells. Unfortunately this facility does not have platelets available in house at this time. She has no active bleeding and does not require emergency transfusion, however I believe patient requires urgent transfusion and hematology evaluation and workup for the root cause of her thrombocytopenia. Additionally with her reports of significant weight loss and disordered eating, I believe she requires further workup and management for this. Patient specifically requests to go to [facility] since she requires transfer stating if she has to go to a [place] facility she will sign out AMA and take herself to [facility] anyway. I reassured the patient that I can contact [facility] for transfer. We reached out to them and I spoke with Dr. Blanco with hematology who agrees with transfer but recommends admission to the hospitalist service and heme-onc consulting. Awaiting a callback from the hospitalist at this time. 0325 received a call back from [facility] and spoke with Dr. Upton with the hospitalist service. We reviewed this patient's presentation, labs, current findings. He graciously accepted the patient for direct admission to [facility]. Awaiting a callback for bed assignment. I updated the patient on the current plan. She is grateful to be going to [facility]. I believe she is appropriate for private vehicle transfer since she has not required any interventions in the ER and is having no active bleeding and remains hemodynamically stable. This will also be the most prudent method of transfer for this patient since ambulance is currently out of [place] with another transfer at this time and I therefore have no other ambulance availability at this time. Bed assignment was provided. RN report called. Patient was assessed again immediately prior to transfer. Vitals remained hemodynamically stable, patient continues to be afebrile, well-appearing. Patient is appropriate for transfer via private vehicle and friend (her POA Ronak) at bedside has agreed to take her. IV removed. They were given explicit instructions to go directly to [facility] in [place], to not make stops along the way, and that patient should remain n.p.o. until evaluated. They are agreeable to this and understand all instructions. Patient was transferred in stable condition via private vehicle with her friend Ronak kenee. Critical Care Critical Care Time Critical Care Time: No
--- NOTE | 2024-11-16 04:00 | PC.NURSE ---
Pt did not have BP taken during hospital stay due to patient request. She states that the BP cuff makes her feel as if she is crawling out of her skin. She also states that the constant inflation of cuff causing extreme bruising. Informed that all staff needed was discharge vital and after TRN obtained vitals all cords would be removed from pt. Patient stated understanding.
[2024-11-16 04:12] VITALS: BP 124/88; PULSE 78; RESP 16; TEMP 36.9; O2SAT 96
--- NOTE | 2024-11-16 04:15 | PC.NURSE ---
Report called to [facility] in [place] for direct admit to [address]. Report called to Vianey HWANG. Patient given instructions of where to go when she arrives at the hospital and her IV was removed prior to discharge from ER. IV catheter tip was intact and bleeding was controlled. Patient ambulated out of ED with significant other.
[2024-11-17 23:32] LABS: Peripheral Smear Review Scanned Result
== END 2024-11-16 04:18 | disposition short-term general hospital (02) ==
PROVIDERS: Emergency Medicine; Emergency Provider Student in an Organized Health Care Education/Training Program; PCP Nurse Practitioner
DX: D69.6 Thrombocytopenia, unspecified (principal)
CPT/HCPCS: 80053; 83615; 83735; 84100; 84550; 85025; 85610; 85730; 99285

== ENCOUNTER 2024-11-30 13:30 | Outpatient (CLI) | payer MEDICARE, MEDICAID, SELFPAY ==
--- OUTSIDE RECORDS SUMMARY | 2023-09-14 10:15 | XMS_ITS | Continuity of Care Document ---
Author Organization [facility] Address [address] [place] [address] Phone Care Team Providers Care Assistant Customer Service Manager Name Role Phone Lucian GATE KEEPER, Mara Unavailable Unavailable Procedures Procedure Date TELEHEALTH OFFICE/OUTPATIENT VISIT EST A Advance Directives Directive Yes / No Effective Date File Name No Information Encounters Encounter Description Practice Location Reason(s) For Visit Diagnoses Date Provider [facility], [address] [facility], [place], [address], [place] tel:[phone] 2 [facility] [place] No Information 2023 Lucian Terry. [address] [place], [place], [id number], [place]. tel:[phone] Family History Family Member Type Diagnosis Age At Onset No Information Payers Payer name Insurance type Covered constitution party ID Authoriza tion(s) [facility]- Medicare MB [id number] [facility]- Medicaid [place] Bcbs BL [id number] [facility]- Medicaid [place] Wrap Payer [id number] Social History Type Description Quantity Date [...]
--- OUTSIDE RECORDS SUMMARY | 2024-11-30 13:38 | XMS_ITS | Clinical Summary ---
Author Organization [employer] Address [address] [place] [address] Care Team Providers Care Paste Mixer Name Role Phone Beronica Spencer Primary Care Provider [phone] Allergies Active Allergy Reactions Criticality Noted Date Comments Iodine Hives High 05/09/2024 Medications polymyxin B-trimethoprim (POLYTRIM) 10,000 unit- 1 mg/mL Place 1 drop into the left eye every 4 (four) hours. 10 mL 05/09/2024 Active Social History Tobacco Use Types Packs/Day Years Used Date Smoking Tobacco: Never Assessed Passive Smoke Exposure: Past Smokeless Tobacco: Never Tobacco Cessation:Counseling Given: Not Answered Alcohol Use Standard Drinks/Week Comments Not Currently 0 (1 standard drink = 0.6 oz pur e alcohol) Comments Unknown Sex and Gender Information Value Date Recorded Sex Assigned at Not on file Legal Sex Female 4:22 PM CDT Gender Identity Not on file Sexual Orientation Not on file Last Filed Vital Signs Vital Sign Reading Time Taken Comments Blood Pressure 136/88 05/09/2024 5:52 PM EST Pulse 90 05/09/2024 5:52 PM EST Temperature - - Respiratory Rate 16 05/09/2024 5:52 PM EST Oxygen Saturation 97% 05/09/2024 5:52 PM EST Inhaled Oxygen Concentration - - Weight 77.6 kg (171 lb) 05/09/2024 5:56 PM EST Height 154 cm (5' 0.63 ) 05/09/2024 5:56 PM EST 5 FEET 1 INCH Body Mass Index 32.71 05/09/2024 5:56 PM EST Plan of Treatment Health Maintenance Due Date Last Done Comments Depression Screening (12+) 2000 Tobacco Cessation Counseling and Screening (12+) 2000 HIV Screening 12/26/2003 Hepatitis C Screening 2006 Lipid Panel 2008 Pap Smear 2009 COVID-19 VACCINE (2 - 2023-2 5 season) 2024 04/08/2021 Influenza Vaccine (Season Ended) 2025 DTAP/TDAP/TD VACCINES (3 - T d or Tdap) 07/30/2030 07/30/2020, 01/01/2017 Pneumococcal Vaccine: 0-49 Years Aged Out 07/11/2018 No longer eligible b ased on patient's age to complete this topic Insurance [facility] Care Teams Paste Mixer Relationship Specialty Start Date End Date Beronica Spencer [address] [place] [address] PCP - General 05/09/24
--- OUTSIDE RECORDS SUMMARY | 2024-11-30 13:38 | XMS_ITS | Referral Summary ---
Author Organization [employer] Address [address] [place] [id number] Care Team Providers Care Mineral Engineer Name Role Phone Beronica Spencer Primary Care Provider [phone] Allergies Active Allergy Reactions Criticality Noted Date [...] 05/09/2024 5:56 PM EST Plan of Treatment Not on file Insurance [facility] Care Teams Mineral Engineer Relationship Specialty Start Date End Date Beronica Spencer [address] [place] [address] PCP - General 05/09/24
[2024-11-30 14:25] LABS: Basophils % 0.6 % (0.1-2.0); Eosinophils # 0.1 Kmm3 (0.0-0.4); Hematocrit 34.9 % (37.0-47.0); Hemoglobin 11.9 g/dL (12.2-16.2); Immature Granulocytes # 0.01 10^3uL; Immature Granulocytes % 0.1 %; Lymphocytes # 1.9 K/mm3 (0.7-4.5); Lymphocytes % 26.2 % (10-50); Mean Corpuscular HGB Conc 34.1 g/dL (31.8-35.4); Mean Corpuscular Hemoglobin 31.1 pg (27.0-31.2); Mean Corpuscular Volume 91.1 fl (81-99); Mean Platelet Volume 12.1 fl (7.4-10.4); Monocytes # 0.4 K/mm3 (0.1-1.0); Monocytes % 5.9 % (1.7-9.3); Neutrophils # 4.7 K/mm3 (1.8-7.8); Neutrophils % 66.2 % (37.0-80.0); Nucleated Red Blood Cells # 0 10^3/uL; Nucleated Red Blood Cells % 0 %; Red Blood Count 3.83 M/mm3 (4.20-5.40); Red Cell Distribution Width 14.1 % (11.5-17.5); Red Cell Distribution Width-SD 46.2 fL; White Blood Count 7.1 K/mm3 (4.8-10.8)
[2024-11-30 14:32] LABS: Platelet Count 12 K/mm3 (142-424)
== END 2024-11-30 23:59 | disposition home or self-care (01) ==
LOC: LAB 13:30
PROVIDERS: PCP Nurse Practitioner; Visit Provider Nurse Practitioner
DX: D69.6 Thrombocytopenia, unspecified (principal)
CPT/HCPCS: 36415; 85025

== ENCOUNTER 2024-12-08 12:20 | Outpatient (CLI) | payer MEDICARE, MEDICAID, SELFPAY ==
--- OUTSIDE RECORDS SUMMARY | 2023-09-14 10:15 | XMS_ITS | Continuity of Care Document ---
Author Organization [facility] Address [address] [place] [address] Phone Care Team Providers Care Christmas Bell Ringer Name Role Phone Lucian AERONAUTICAL PRODUCTS SALES ENGINEER, Mara Unavailable Unavailable Procedures Procedure Date TELEHEALTH OFFICE/OUTPATIENT VISIT EST A Advance Directives Directive Yes / No Effective Date File Name No Information Encounters Encounter Description Practice Location Reason(s) For Visit Diagnoses Date Provider [facility], [address] [facility], [place], [address], [place] tel:[phone] 2 [facility] [place] No Information 2023 Luican Terry. [address] [place], [place], [id number], [place]. tel:[phone] Family History Family Member Type Diagnosis Age At Onset No Information Payers Payer name Insurance type Covered alliance party ID Authoriza tion(s) [facility]- Medicare [place] [id number] [facility] Medicaid [place] Bcbs BL [id number] [facility]- Medicaid [place] Wrap Payer [id number] Social History Type Description Quantity Date [...]
--- OUTSIDE RECORDS SUMMARY | 2023-09-14 10:15 | XMS_ITS | Continuity of Care Document ---
Author Organization [facility] Address [address] [place] [address] Phone Care Team Providers Care Engineering Inspector Name Role Phone Lucian INSURANCE CLAIMS CLERK, Mara Unavailable Unavailable Procedures Procedure Date TELEHEALTH OFFICE/OUTPATIENT VISIT EST A Advance Directives Directive Yes / No Effective Date File Name No Information Encounters Encounter Description Practice Location Reason(s) For Visit Diagnoses Date Provider [email or web address] [address] [facility], [place], [address], [place] tel:[phone] 2 [facility] [place] No Information 2023 Lucian Terry. [address] [place], [place], [id number], [place]. tel:[phone] Family History Family Member Type Diagnosis Age At Onset No Information Payers Payer name Insurance type Covered green party ID Authoriza tion(s) [facility]- Medicare [place] [id number] [facility]- Medicaid [place] Bcbs BL [id number] [facility]- Medicaid [place] Wrap Payer [id number] Social History Type Description Quantity Date [...]
--- OUTSIDE RECORDS SUMMARY | 2024-10-10 14:15 | XMS_ITS | Encounter Summary ---
Author Organization [facility] Address [address] [place] [address] Care Team Providers Care Manager Fashion Name Role Phone Beronica Spencer APRN Primary Care Provider [phone] Reason for Visit * Reason Comments Follow-up Follow-up Encounter Details Date Type Department Care Team (Latest Contact Info) Description 10/10/2024 2:15 PM EDT [facility] [address] [place] [address] Sotero Rosales MD [address] [place] [address] Primary osteoarthritis of both knees (Primary Dx) Social History Tobacco Use Types Packs/Day Years Used Date Smoking Tobacco: Former Cigarettes 1.5 11 0 02/2010 - 02/2021 Smokeless Tobacco: Current Chew Alcohol Use Standard Drinks/Week Comments Not Currently 0 (1 standard drink = 0.6 oz pur e alcohol) Overall Financial Resource Strain (CARDIA) Answe r Date Recorded How hard is it for you to pa y for the very basics like food, housing, medical care, and heating? Not hard at all 02/03/2021 PHQ-2 Answer Date Recorded PHQ-2 Total Score 0 10/29/2022 [employer] - Occupational Stress Questionnaire Answer Date Recorded Do you feel stress - tense, restless, nervous, or anxious, or unable to sleep at night because your mind is troubled all the time - these days? To some extent 02/03/2021 Exercise Vital Sign Answer Date Recorde d On average, how many days pe r week do you engage in moderate to strenuous exercise (like a brisk walk)? 0 days 02/03/2021 On average, how many minutes do you engage in exercise at this level? 0 min 02/03/2021 Hunger Vital Sign Answer Date Recorded Within the past 12 months, y ou worried that your food would run out before you got the money to buy more. Never true 02/04/20 21 Within the past 12 months, t he food you bought just didn't last and you didn't have money to get more. Never true 02/03/2021 PRAPARE - Transportation Answer Date Re corded In the past 12 months, has l ack of transportation kept you from medical appointments or from getting medications? No 01/13 In the past 12 months, has l ack of transportation kept you from meetings, work, or from getting things needed for daily living? No 02/03/2021 Sexually Active Control Partners Comments Yes Male Comments No Sex and Gender Information Value Date Recorded Sex Assigned at Not on file Legal Sex Female 6:52 PM EDT Gender Identity Not on file Sexual Orientation Not on file documented as of this encounter Last Filed Vital Signs Vital Sign Reading Time Taken Comments Blood Pressure - - Pulse - - Temperature - - Respiratory Rate - - Oxygen Saturation - - Inhaled Oxygen Concentration - - Weight 72.1 kg (159 lb) 10/10/2024 2:07 PM EDT Height 154.9 cm (5' 1 ) 10/10/2024 2:07 PM EDT Body Mass Index 30.04 10/10/2024 2:07 PM EDT documented in this encounter Functional Status * Is the person deaf or does he/she have serious difficulty hearing? Answer Date of Assessment Author No 10/29/2022 10:18 AM EDT Yvonne Griffin MA * Is the person blind or does he/she have serious difficulty seeing even when wearing glasses? Answer Date of Assessment Author No 10/29/2022 10:18 AM Yvonne Marie MA * Does this person have serious difficulty walking or climbing stairs? Answer Date of Assessment Author No 10/29/2022 10:18 AM Yvonne Marie MA * Does this person have difficulty dressing or bathing? Answer Date of Assessment Author No 10/29/2022 10:18 AM Yvonne Marie MA * Because of a physical, mental or emotional condition, does this person have difficulty doing errands alone such as visiting a doctor's office or shopping? Answer Date of Assessment Author No 10/29/2022 10:18 AM EDT Yvonne Griffin MA documented as of this encounter Mental Status * Because of a physical, mental or emotional condition, does this person have serious difficulty concentrating, remembering or making decisions? Answer Entry Date Author No 10/29/2022 10:18 AM EDT Yvonne Griffin MA documented in this encounter Progress Notes * Elaine Rae ATC - 10/10/2024 2:15 PM EDTAssociated Order(s): Large Joint Injection/Arthrocentesis: bilateral knee Large Joint Injection/Arthrocentesis: bilateral knee on 10/10/2024 2:15 PM Indications: pain, joint swelling and diagnostic evaluation Details: 22 G needle, lateral approach Medications (Right): 2 mg betamethasone acet-betamethasone sodium phos 6 mg/mL; 4 mL BUPivacaine HCl 0.25 % (2.5 mg/mL) Medications (Left): 2 mg betamethasone acet-betamethasone sodium phos 6 mg/mL; 4 mL BUPivacaine HCl0.25 % (2.5 mg/mL) Outcome: tolerated well, no immediate complications Procedure, treatment alternatives, risks and benefits explained, specific risks discussed. Consent was given by the patient. Immediately prior to procedure a time out was called to verify the correctpatient, procedure, equipment, sales support specialist and site/side marked as required. Patient was prepped and draped in the usual sterile fashion. * Sotero Hoffman MD - 10/10/2024 2:15 PM EDT Images from the original note were not included. HPI 33-year-old female who comes here regarding her bilateral knees. We have done corticosteroid injection in the past and she is ready for viscosupplementation now that she is 6 months over Past medical history surgical history medication allergies and review of system all review of notedchart Physical exam She does have pain bilateral knees without significant effusion x-ray shows degenerative changes of bilateral knee Impression Bilateral knee degenerative changes Plan After conversation with the patient we will do corticosteroid injections and set her up with viscosupplementation in about 1 to 2 weeks Left knee corticosteroid injection Using lateral inferior approach with a 22 G 1 1/2 inch needle 2 cc of Celestone and 4 mL of bupivacaine is injected into left knee joint. This is done after recent benefit of the procedure was explained to the patient and after a septic technique to clean the skin was done. Patient tolerated well the procedure Right knee corticosteroid injection Using lateral inferior approach with a 22 G 1 1/2 inch needle 2 cc of Celestone and 4 mL of bupivacaine is injected into Right knee joint. This is done after recent benefit of the procedure was explained to the patient and after a septic technique to clean the skin was done. Patient tolerated well the procedure documented in this encounter Plan of Treatment Not on file documented as of this encounter Goals Goal Patient Goal Type Associated Problems Recent Progress Patient-Stated? Author Maintain a healthy diet, exercise regularly and maintain an ideal body weight General No Trudy Winkler RMA Stay Tobacco Free Lifestyle No Trudy Winkler RMA documented as of this encounter Procedures Procedure Name Priority Date/Time Associated Diagnosis Comments SC ARTHROCENTESIS LARGE JOINT W/O US BILATERAL Routine 10/10/2024 2:15 PM EDT Primary osteoarthritis of both knees documented in this encounter Results * SC ARTHROCENTESIS LARGE JOINT W/O US BILATERAL (10/10/2024 2:15 PM EDT) Narrative [facility] - 10/10/2024 2:15 PM EDT Elaine Rae, ATC 10/10/2024 2:31 PM Large Joint Injection/Arthrocentesis: bilateral knee on 10/10/2024 2:15 PM Indications: pain, joint swelling and diagnostic evaluation Details: 22 G needle, lateral approach Medications (Right): 2 mg betamethasone acet-betamethasone sodium phos 6 mg/mL; 4 mL BUPivacaine HCl 0.25 % (2.5 mg/mL) Medications (Left): 2 mg betamethasone acet-betamethasone sodium phos 6 mg/mL; 4 mL BUPivacaine HCl 0.25 % (2.5 mg/mL) Outcome: tolerated well, no immediate complications Procedure, treatment alternatives, risks and benefits explained, specific risks discussed. Consent was given by the patient. Immediately prior to procedure a time out was called to verify the correct patient, procedure, equipment, sales support specialist and site/side marked as required. Patient was prepped and draped in the usual sterile fashion. Sotero Hoffman MD PROCEDURE/MINOR SURG ICAL ORDERABLES Final Result [facility] documented in this encounter Visit Diagnoses Diagnosis Primary osteoarthritis of both knees- Primary Primary localized osteoarthrosis, lower leg documented in this encounter Administered Medications Inactive Administered Medications - up to 1 most recent administrations Medication Order MAR Action Action Date Dose Rate Site betamethasone acet-betamethasone sodium phos (CELESTONE) injection 2 mg 2 mg, Intra-articular, ONCE PRN, 1 dose, Starting on Wed10/10/24 at 1415, Until Wed10/10/24 at 1415, Dx: 1. Primary osteoarthritis of both kneesIndications:Primary osteoarthritis of both knees Given 10/10/2024 2:15 PM EDT 2 mg Left Knee betamethasone acet-betamethasone sodium phos (CELESTONE) injection 2 mg 2 mg, Intra-articular, ONCE PRN, 1 dose, Starting on Wed10/10/24 at 1415, Until Wed10/10/24 at 1415, Dx: 1. Primary osteoarthritis of both kneesIndications:Primary osteoarthritis of both knees Given 10/10/2024 2:15 PM EDT 2 mg Right Knee BUPivacaine HCl (MARCAINE) 0.25 % (2.5 mg/mL) injection 4 mL 4 mL, Intra-articular, ONCE PRN, 1 dose, Starting on Wed10/10/24 at 1415, Until Tu10/10/24 at 1415, Dx: 1. Primary osteoarthritis of both kneesIndications:Primary osteoarthritis of both knees Given 10/10/2024 2:15 PM EDT 4 mL Left Knee BUPivacaine HCl (MARCAINE) 0.25 % (2.5 mg/mL) injection 4 mL 4 mL, Intra-articular, ONCE PRN, 1 dose, Starting on Wed10/10/24 at 1415, Until Wed10/10/24 at 1415, Dx: 1. Primary osteoarthritis of both kneesIndications:Primary osteoarthritis of both knees Given 10/10/2024 2:15 PM EDT 4 mL Right Knee documented in this encounter Care Teams Manager Fashion Relationship Specialty Start Date End Date Beronica Spencer APRN [address] [place] [address] PCP - General Nurse Practitioner-Family 08/20/20 documented as of this encounter
--- OUTSIDE RECORDS SUMMARY | 2024-11-15 15:10 | XMS_ITS | Encounter Summary ---
Author Organization [place] [address] Care Team Providers Care Box Truck Driver Name Role Phone Beronica Spencer APRN Primary Care Provider [phone] Reason for Visit * Reason Comments Vaginal Injury Having female issue s when asked to explain, thinks its torn from last night, ob said couldn't do anything; denies bleeding; +pain Encounter Details Date Type Department Care Team (Late st Contact Info) Description 11/15/2024 3:10 PM EDT - 11/15/2024 3:50 PM EDT Emergency [facility] [address] [place] [address] Naresh Byrnes MD [address] [place] [address] Injury of vagina, initial encounter (Primary Dx) Discharge Disposition: Home or Self Care Social History Tobacco Use Types Packs/Day Years [...] Date Recorded PHQ-2 Total Score 0 10/29/2022 [facility] of Occupat ional Health - Occupational Stress [...] Sign Reading Time Taken Comments Blood Pressure 104/72 11/15/2024 2:26 PM EDT Pulse 103 11/15/2024 2:26 PM EDT Temperature 36.8 C (98.2 F) 11/15/2024 2:26 PM EDT Respiratory Rate 18 11/15/2024 2:26 PM EDT Oxygen Saturation 96% 11/15/2024 2:26 PM EDT Inhaled Oxygen Concentration - - Weight 69.4 kg (153 lb) 11/15/2024 2:26 PM EDT Height - - Body Mass Index 28.91 10/10/2024 2:07 PM EDT documented in this [...] 10:18 AM EDT Yvonne Griffin MA * Does this person have serious difficulty walking or climbing stairs? Answer Date of Assessment Author No 10/29/2022 10:18 AM EDT Yvonne Griffin MA * Does this person have difficulty dressing or bathing? Answer Date of Assessment Author No 10/29/2022 10:18 AM EDT Yvonne Griffin MA * Because of a physical, mental or emotional condition, does this person have difficulty doing errands alone such as visiting a doctor's office or shopping? Answer Date of Assessment Author No 10/29/2022 10:18 AM EDT Yvonne Griffin MA * Suicide Severity Rating Answer Date of Assessment Author No Risk 11/15/2024 2:27 PM EDT Kandi Philip RN * [place] Suicide Severity Rating Scale (Q shift for moderate and high) Question Answer Date of Assessment Author 1. In the past month, have y ou wished you were or wished you could go to sleep and not wake up? 0 11/15/2024 2:27 PM EDT Kandi Philip RN 2. In the past month, have y ou actually had any thoughts of killing yourself? (If no, skip to question 6) 0 11/15/2024 2:27 PM STEPHANIET Kandi Philip RN 6. Have you ever done anythi ng, started to do anything, or prepared to do anything to end your life? 0 11/15/2024 2:27 PM EDT Kandi Philip RN documented as of this encounter Mental Status * Because of a physical, mental or emotional condition, does this person have serious difficulty concentrating, remembering or making decisions? Answer Entry Date Author No 10/29/2022 10:18 AM EDT Yvonne Griffin MA documented in this encounter Discharge Instructions * Discharge Instructions* Corey Ramirez PA - 11/15/2024 3:39 PM EDT Avoid sexual activity. Gently cleanse the area with warm water, dry, and apply Vaseline or Aquaphor. Follow-up with primary care or MEDICAL ASSISTANT FLOAT as needed. Return to the emergency room for worsening symptoms or other concerns. documented in this encounter Medications at Time of Discharge albuterol-ipratr opium (DUO-NEB) 0.5 mg-3 mg(2.5 mg base)/3 mL Inhl Solution for NebulizationIndi cations:Bronchit is Take 3 mL by nebulization 2 times daily. 30 Each 07/17/2023 busPIRone (BUSPAR) 10 mg Oral Tablet Take 2 Tablets by mouth 3 times daily. 180 Tablet 09/21/2022 fluticasone propionate (FLONASE) 50 mcg/actuation Nasl [place], SuspensionIndica tions:Middle ear effusion, bilateral SHAKE LIQUID AND USE 1 SPRAY IN EACH NOSTRIL DAILY 16 g 2022 hydrOXYzine (ATARAX) 50 mg Oral Tablet Take 1 Tablet by mouth every 6 hours as needed for Anxiety. 60 Tablet 1 09/14/2022 lamoTRIgine (LAMICTAL) 200 mg Oral Tablet Take 1 Tablet by mouth nightly. 30 Tablet 1 09/07/2022 lurasidone (LATUDA) 40 mg Oral Tablet Take 1 Tablet by mouth daily. 30 Tablet 1 09/14/2022 naltrexone (REVIA) 50 mg Oral Tablet Take 1 Tablet by mouth daily. 30 Tablet 1 09/08/2022 ondansetron (ZOFRAN) 4 mg Oral TabletIndication s:Nausea Take 1 Tablet by mouth every 6 hours as needed for Nausea. 30 Tablet 2 10/29/2022 propranoloL (INDERAL) 20 mg Oral Tablet Take 1 Tablet by mouth 2 times daily. 60 Tablet 1 07/27/2022 Venlafaxine (EFFEXOR) 225 mg Oral Tablet Extended Rel 24 hr Take 1 Tablet by mouth daily. 30 Tablet 1 07/08/2022 documented as of this encounter Discharge Disposition Disposition Code Departure Means Destination Comment s Home or Self Alf documented in this encounter ED Notes * Corey Ramirez PA - 11/15/2024 2:23 PM EDT Chief Complaint Patient presents with Vaginal Injury Having female issues when asked to explain, thinks its torn from last night, ob said couldn't do anything; denies bleeding; +pain Patient seen for Dr. Byrnes, who was available for consultation during patient encounter. This is a 33-year-old female with history of obesity, alcohol use disorder, borderline personality disorder, methamphetamine use disorder, and cannabis use disorder who presents to the emergency department for evaluation of vaginal injury. Patient states that 2 nights ago she and her male partner had a lot of intercourse. Yesterday they attempted to have intercourse again, but she felt a lot of pain at the vaginal introitus. She denies any bleeding from the area. No discharge. She went to her primary care today for some outpatient blood work, her primary care checked the area and was concerned that there was a tear. Patient History Allergies Allergen Reactions Sertraline Anaphylaxis, Other (See Comments) and Shortness Of Breath Shellfish Containing Products Anaphylaxis Hydromorphone Itching SOA, Itching, anxiety [place] Pollen Other (See Comments) eyes itchy Gadolinium-Containing Contrast Media Hives Iodine Hives Home Medications: Prior to Admission medications Medication Sig Start Date End Date Last Dose Authorizing Provider albuterol-ipratropium (DUO-NEB) 0.5 mg-3 mg(2.5 mg base)/3 mL Inhl Solution for Nebulization Take 3mL by nebulization 2 times daily. 07/17/23 Nadya Carreon PA-C busPIRone (BUSPAR) 10 mg Oral Tablet Take 2 Tablets by mouth 3 times daily. 09/21/22 Ilana Grayson APRN fluticasone propionate (FLONASE) 50 mcg/actuation Nasl [place], Suspension SHAKE LIQUID AND USE 1 SPRAY IN EACH NOSTRIL DAILY 12/25/22 Beronica Spencer APRN hydrOXYzine (ATARAX) 50 mg Oral Tablet Take 1 Tablet by mouth every 6 hours as needed for Anxiety. 09/14/22 Ilana Grayson APRN lamoTRIgine (LAMICTAL) 200 mg Oral Tablet Take 1 Tablet by mouth nightly. 09/07/22 Ilana Grayson APRN lurasidone (LATUDA) 40 mg Oral Tablet Take 1 Tablet by mouth daily. 09/14/22 Ilana Grayson APRN naltrexone (REVIA) 50 mg Oral Tablet Take 1 Tablet by mouth daily. 09/08/22 Ilana Grayson APRN ondansetron (ZOFRAN) 4 mg Oral Tablet Take 1 Tablet by mouth every 6 hours as needed for Nausea. 10/29/22 Beronica Spencer APRN propranoloL (INDERAL) 20 mg Oral Tablet Take 1 Tablet by mouth 2 times daily. 07/27/22 Ilana Grayson APRN Venlafaxine (EFFEXOR) 225 mg Oral Tablet Extended Rel 24 hr Take 1 Tablet by mouth daily. 07/08/22 Calvin Chow MD Past Medical History: Past Medical History: Diagnosis Date Asthma Bronchitis, chronic (HCC) Histoplasmosis Migraine Pneumonia Shortness of breath Social History: reports that she quit smoking about 3 years ago. Her smoking use included cigarettes. She started smoking about 14 years ago. She has a 16.5 pack-year smoking history. Her smokeless tobacco use includes chew. She reports that she does not currently use alcohol. She reports that she does not currently use drugs after having used the following drugs: Marijuana. She reports being sexually active and has had partner(s) who are male. E-Cigarettes (such as Vapes or Juul) E-Cigarette Use Never User Family History: Family History Problem Relation Age of Onset Diabetes Mother Heart Disease Mother High Blood Pressure Mother Heart Disease Father Dementia Maternal Grandfather Seizures Other Surgical History: Past Surgical History: Procedure Laterality Date BRONCHOSCOPY CARPAL TUNNEL RELEASE SECTION KNEE SURGERY TONSILLECTOMY TUBAL LIGATION Review of Systems Review of Systems All other systems reviewed and are negative. Physical Exam Blood pressure 104/72, pulse 103, temperature 98.2 ??F (36.8 ??C), temperature source Oral, resp. rate 18, weight 153 lb (69.4 kg), SpO2 96%, not currently . Physical Exam Vitals and nursing note reviewed. Constitutional: General: She is not in acute distress. Appearance: Normal appearance. Comments: Patient appears comfortable and nontoxic. HENT: Head: Normocephalic and atraumatic. Eyes: Conjunctiva/sclera: Conjunctivae normal. Cardiovascular: Rate and Rhythm: Normal rate. Pulmonary: Effort: Pulmonary effort is normal. No respiratory distress. Genitourinary: Comments: exam performed with Nubia HWANG internet cafe manager with patient consent. Male significant otheralso present during exam. Patient has a very small tear of the posterior vaginal introitus. No laceration. No active bleeding. No surrounding erythema. Musculoskeletal: Cervical back: Normal range of motion. Skin: General: Skin is warm and dry. Neurological: Mental Status: She is alert and oriented to person, place, and time. Psychiatric: Mood and Affect: Mood normal. Behavior: Behavior normal. Procedures Radiology/EKG/Labs: None indicated ED Course: Patient is afebrile and vitals are stable. Patient does have a very small nonbleeding injury. I do not feel any additional workup or primary repair warranted. She is educated on wound care. Follow-upwith primary care or MEDICAL ASSISTANT FLOAT. She is also given return precautions. ED Clinical Impression: 1. Injury of vagina, initial encounter Critical Care time MDM Medical Decision Making Condition at Discharge/Transfer from Department: Stable This chart was completed using voice recognition technology and may contain unintended errors Corey Ramirez PA 11/15/24 1542 Cosigned by Naresh Byrnes MD at 11/16/2024 12:43 AM EDT Associated attestation - Naresh Byrnes MD - 11/16/2024 12:43 AM EDT This chart was completed using voice recognition technology and may contain unintended errors documented in this encounter Plan of Treatment Not on file documented as of this encounter Goals Goal Patient Goal Type Associated Problems Recent Progress Patient-Stated? Author Maintain a healthy diet, exercise regularly and maintain an ideal body weight General No Trudy Winkler RMA Stay Tobacco Free Lifestyle No Trudy Winkler RMA documented as of this encounter Visit Diagnoses Diagnosis Injury of vagina, initial encounter- Primary documented in this encounter Care Teams Box Truck Driver Relationship Specialty Start Date End Date Beronica Spencer APRN [address] [place], [place] [address] PCP - General Nurse Practitioner-Family 08/20/20 documented as of this encounter
[2024-12-08 18:37] LABS: Basophils # 0.1 K/mm3 (0-0.2); Basophils % 0.7 % (0.1-2.0); Eosinophils # 0.1 Kmm3 (0.0-0.4); Eosinophils % 2.1 % (0.1-12.0); Hematocrit 36.1 % (37.0-47.0); Immature Granulocytes # 0.01 10^3uL; Immature Granulocytes % 0.1 %; Lymphocytes # 1.7 K/mm3 (0.7-4.5); Lymphocytes % 25.5 % (10-50); Mean Corpuscular HGB Conc 33.2 g/dL (31.8-35.4); Mean Corpuscular Hemoglobin 31.2 pg (27.0-31.2); Mean Corpuscular Volume 93.8 fl (81-99); Mean Platelet Volume 10.3 fl (7.4-10.4); Monocytes # 0.5 K/mm3 (0.1-1.0); Monocytes % 7.3 % (1.7-9.3); Neutrophils # 4.3 K/mm3 (1.8-7.8); Neutrophils % 64.3 % (37.0-80.0); Nucleated Red Blood Cells # 0 10^3/uL; Nucleated Red Blood Cells % 0 %; Platelet Count 119 K/mm3 (142-424); Red Blood Count 3.85 M/mm3 (4.20-5.40); Red Cell Distribution Width 14.8 % (11.5-17.5); Red Cell Distribution Width-SD 50.4 fL; White Blood Count 6.7 K/mm3 (4.8-10.8)
--- OUTSIDE RECORDS SUMMARY | 2024-12-09 08:34 | XMS_ITS | Clinical Summary ---
Author Organization [facility] Address [address] [place] [address] Phone Care Team Providers Care Livestock Yard Supervisor Name Role Phone SpencerElidaBeronica IGNACIO Primary Care Provider [phone] Allergies Active Allergy Reactions Criticality Noted Date Comments Gadolinium-Containing Contrast Media Hives 08/20/2020 Hydromorphone Itching Medium 06/12/2017 SOA, Itching, anxiety Iodine Hives 11/23/2018 Sertraline Anaphylaxis,Other (See Comments),Shortness Of Breath High 09/09/2016 Shellfish Containing Products Anaphylaxis High 06/26/2020 [place] Pollen Other (See Comments) Medium 10/10/2024 eyes itchy Medications * This document contains information received from the source organization and may not represent a complete record from that organization. Venlafaxine (EFFEXOR) 225 mg Oral Tablet Extended Rel 24 hr Take 1 Tablet by mouth daily. 30 Tablet 1 3 Active propranoloL (INDERAL) 20 mg Oral Tablet Take 1 Tablet by mouth 2 times daily. 60 Tablet 1 3 Active lamoTRIgine (LAMICTAL) 200 mg Oral Tablet Take 1 Tablet by mouth nightly. 30 Tablet 1 3 Active naltrexone (REVIA) 50 mg Oral Tablet Take 1 Tablet by mouth daily. 30 Tablet 1 3 Active hydrOXYzine (ATARAX) 50 mg Oral Tablet Take 1 Tablet by mouth every 6 hours as needed for Anxiety. 60 Tablet 1 3 Active lurasidone (LATUDA) 40 mg Oral Tablet Take 1 Tablet by mouth daily. 30 Tablet 1 3 Active busPIRone (BUSPAR) 10 mg Oral Tablet Take 2 Tablets by mouth 3 times daily. 180 Tablet 3 Active ondansetron (ZOFRAN) 4 mg Oral TabletIndicatio ns:Nausea Take 1 Tablet by mouth every 6 hours as needed for Nausea. 30 Tablet 2 3 Active fluticasone propionate (FLONASE) 50 mcg/actuation Nasl [place], SuspensionIndic ations:Middle ear effusion, bilateral SHAKE LIQUID AND USE 1 SPRAY IN EACH NOSTRIL DAILY 16 g 3 Active albuterol-iprat ropium (DUO-NEB) 0.5 mg-3 mg(2.5 mg base)/3 mL Inhl Solution for NebulizationInd ications:Bronch itis Take 3 mL by nebulization 2 times daily. 30 Each 4 Active Active Problems Problem Noted Date Diagnosed Date Primary osteoarthritis of both knees 02/26/2023 Subacromial impingement of right shoulder 2022 Cannabis use disorder, severe, dependence 2021 Alcohol use disorder, severe, in early remission 03/23/2022 Major depressive disorder, r ecurrent severe without psychotic features 03/20/2022 Generalized anxiety disorder 03/20/2022 Chronic post-traumatic stress disorder (PTSD) Methamphetamine use disorder , severe, in sustained remission 03/20/2022 Prediabetes 08/26/2021 Chronic bronchitis 08/25/2021 Obesity, morbid, BMI 50 or higher 08/14/2021 Pulmonary fibrosis 08/20/2020 Overactive bladder 08/20/2020 Borderline personality disorder 11/23/2018 Resolved Problems Problem Noted Date Diagnosed Date Resolved Date Alcohol use disorder, modera te, in early remission 03/20/2022 07/08/2022 PTSD (post-traumatic stress disorder) 03/18/2022 03/20/2022 MDD (major depressive disord er), recurrent severe, without psychosis 03/18/2022 03/20/2022 Methamphetamine dependence in remission 12/29/2018 03/20/2022 Overview (08/20/2020): Cut using in 2019. Got clean cold turkey Generalized anxiety disorder 11/23/2018 03/20/2022 Psychosis 11/23/2018 03/18/2022 Mood disorder 11/23/2018 03/18/2022 Tobacco dependence due to cigarettes 11/23/2018 03/23/2022 Encounters Date Type Department Care Team Description 11/29/[address] [address] Sotero Rosales MD 11/15/2024 3:10 PM EDT - 11/15/2024 3:50 PM EDT Emergency [facility] Emergency [address] [place] [address] Naresh Byrnes MD Injury of vagina, initial encounter (Primary Dx) Discharge Disposition: Home or Self Care 11/15/2024 Travel 11/10/[address] [address] Sotero Rosales MD 10/10/2024 2:15 PM EDT Office Visit [facility] [address] [place] [address] Sotero Rosales MD Primary osteoarthritis of both knees (Primary Dx) from Last 3 Months Immunizations Immunization Administration Dates Next Due Influenza Vaccine Quadrivalent PF 2020,04/12/2020,07/11/2018,02/24 Pfizer SARS-CoV-2 Vaccine 12 + Yrs (Purple Cap) 04/08/2021 Pneumococcal Polysaccharide 23 Valent 07/11/2018 Tdap 07/30/2020,01/01/2017 Surgical History Surgery Date Site/Laterality Comments SECTION TUBAL LIGATION TONSILLECTOMY KNEE SURGERY CARPAL TUNNEL RELEASE BRONCHOSCOPY Medical History Medical History Date Comments Histoplasmosis Pneumonia Shortness of breath Bronchitis, chronic (HCC) Asthma Migraine Family History Medical History Relation Name Comments Heart Disease Father Dementia Maternal Grandfather Diabetes Mother Heart Disease Mother High Blood Pressure Mother Seizures Other child Relation Name Status Comments Father Maternal Grandfather Mother Alive Other child Other Social History Tobacco Use Types Packs/Day Years Used Date Smoking Tobacco: Former Cigarettes 1.5 11 0 02/2010 - 02/2021 Smokeless Tobacco: Current Chew Tobacco Cessation:Ready to Q uit: Not Asked; Counseling Given: Not Answered Alcohol Use Standard Drinks/Week Comments Not Currently 0 (1 standard drink = 0.6 oz pur e alcohol) Overall Financial Resource Strain (CARDIA) Answe r Date Recorded How hard is it for you to pa y for the very basics like food, housing, medical care, and heating? Not hard at all 02/03/2021 PHQ-2 Answer Date Recorded PHQ-2 Total Score 0 10/29/2022 [facility] - Occupational Stress Questionnaire Answer Date Recorded [...] on file Sexual Orientation Not on file Obstetrics History Para Term AB IAB SAB Ectopic Multiple Livin g Live Births 3 1 2 Date Outcome GA Total Labor Labor/2nd/3rd Weight Sex Type Anes PTL Karuna A1 A5 Name Clin AB Last Filed Vital Signs Vital Sign Reading Time Taken Comments Blood Pressure 104/72 11/15/2024 2:26 PM EDT Pulse 103 11/15/2024 2:26 PM EDT Temperature 36.8 C (98.2 F) 11/15/2024 2:26 PM EDT Respiratory Rate 18 11/15/2024 2:26 PM EDT Oxygen Saturation 96% 11/15/2024 2:26 PM EDT Inhaled Oxygen Concentration - - Weight 69.4 kg (153 lb) 11/15/2024 2:26 PM EDT Height 154.9 cm (5' 1 ) 10/10/2024 2:07 PM EDT Body Mass Index 28.91 10/10/2024 2:07 PM EDT Plan of Treatment Health Maintenance Due Date Last Done Comments Hepatitis B Vaccine (1 of 3 - 19+ 3-dose series) 12/26/2007 HPV/Pap Cotest 2018 Annual Wellness Exam 10/30/2023 10/29/2022 COVID-19 Vaccine ( season) 2024 04/08/2021, 12/19/2020, 11/28/2020 Cervical Cancer Screening 08/12/2024 Pap Smear 08/12/2024 08/12/2021, 09/29/2016 Influenza Vaccine (Season Ended) 2025 04/07/2021, 04/12/2020, 07/11/2018, Additional history exists DTaP/TDaP/Td (3 - Td or Tdap) 07/30/2030 07/30/2020, 01/01/2017 Pneumococcal Vaccine 0-49 Aged Out 07/11/2018 No longer eligible based on patient's age to complete this topic Meningococcal B Vaccine Aged Out No l onger eligible based on patient's age to complete this topic Goals Goal Patient Goal Type Associated Problems Recent Progress Patient-Stated? Author Maintain a healthy diet, exercise regularly and maintain an ideal body weight General No Trudy Winkler RMA Stay Tobacco Free Lifestyle No Trudy Winkler RMA Procedures Procedure Name Priority Date/Time Associated Diagnosis Comments OR ARTHROCENTESIS LARGE JOINT W/O US BILATERAL Routine 10/10/2024 2:15 PM EDT Primary osteoarthritis of both knees OPTOMETRY TEACHER CYTOLOGY REQUEST (PAP ONLY) Routine 08/12/2021 3:21 PM EST Well woman exam with routine gynecological exam from Last 3 Months or Most Recently Relevant to Health Maintenance Results * OR ARTHROCENTESIS LARGE JOINT W/O US BILATERAL (10/10/2024 2:15 PM EDT) Narrative [facility] - 10/10/2024 2:15 PM EDT Iam Raeie, ATC 10/10/2024 2:31 PM Large Joint Injection/Arthrocentesis: [...] to verify the correct patient, procedure, equipment, it support consultant and site/side marked as required. Patient was prepped and draped in the usual sterile fashion. Sotero Hoffman MD PROCEDURE/MINOR SURG ICAL ORDERABLES Final Result [facility] * OPTOMETRY TEACHER CYTOLOGY REQUEST (PAP ONLY) (08/12/2021 3:21 PM EST) CASE REPORT Gynecologic Cytology Report Case: [id number] Authorizing Provider: Davion Alex MD Collected: 08/12/2021 1521 Ordering Location: [facility] Received: 08/12/2021 1521 First Screen: Lobo Michel CT Specimen: LIQUID-BASED PAP - CERVICAL/ENDOCERV ICAL, Cervix, Endocervical 08/13/2021 3:28 PM EST [facility] PAP FINAL DIAGNOSIS Negative for intraepithelial lesion or malignancy 08/13/2021 3:28 PM EST [facility] at 1528 EST MICROSCOPIC DESCRIPTION Microscopic examination is performed and the findings corroborate the diagnosis. 08/13/2021 3:28 PM EST [facility] PAP SMEAR ADEQUACY Satisfactory for evaluation 08/13/2021 3:28 PM EST [facility] ENDOCERVICAL T-ZONE Transformation zone present 08/13/2021 3:28 PM EST [facility] EMBEDDED IMAGES 3:28 PM EST [facility] PAP DISCLAIMER The Pap Smear is a screening test that aids in the detection of cervical cancer and cancer precursors. Both false positive and false negative results can occur. The test should be used at regular intervals, and positive results should be confirmed before definitive therapy. Processed using the Bizratings.comPrep Needle Maker Automated cytology screening device (MyActivityPal). 08/13/2021 3:28 PM EST [facility] Thin Prep ENDOCERVICAL STRUCTURE / Unknown 08/12/2021 3:21 PM EST 08/12/2021 3:21 PM EST Davion Alex MD CYTOLOGY ORDERABLES Final Re sult [facility] [address] [place] [address] from Last 3 Months or Most Recently Relevant to Health Maintenance Insurance [facility] MEDICARE PPO MR Member Subscriber Plan / Payer ( fective 2023-Present) Name:Zuleima Laraerika Joshua Relation to Subscriber:Self Name:Fely Lara Tres Payer ID:[id number] (NAIC) Group ID:[id number] Type:Not on file Address: [id number] [place] [id number] [employer] on file [facility] MEDICARE PPO [place] [id number] Advance Directives For more information, please contact: [phone] Documents on File Type Date Recorded Patient Embedded Firmware Developer Expl anation ADVANCE DIRECTIVE 08/26/2021 10:24 AM LW 0 09/05/2017 Care Teams Livestock Yard Supervisor Relationship Specialty Start Date End Date Beronica Spencer APRN [address] [place] [id number] PCP - General Nurse Practitioner-Family 08/20/20
--- OUTSIDE RECORDS SUMMARY | 2024-12-09 08:34 | XMS_ITS | Encounter Summary ---
Author Organization [facility] Address [address] [place] [address] Care Team Providers Care Material Control Clerk Name Role Phone Beronica Spencer APRN Primary Care Provider [phone] Encounter Details Date Type Department Care Team ([facility] Contact Info) Description 11/10/2024 Telephone [facility] [address] [place] [address] Sotero Hoffman MD [address] [place] [address] Social History Tobacco Use Types Packs/Day Years [...] Date Recorded PHQ-2 Total Score 0 10/29/2022 [facility] of Occupat ional Health - Occupational Stress [...] on file documented as of this encounter Functional Status * Is the person deaf or does he/she have serious difficulty hearing? Answer Date of Assessment Author No 10/29/2022 10:18 AM Yvonne Marie MA * Is the person blind or [...] No 10/29/2022 10:18 AM Yvonne Marie MA documented as of this encounter Mental Status * Because of a physical, mental or emotional condition, does this person have serious difficulty concentrating, remembering or making decisions? Answer Entry Date Author No 10/29/2022 10:18 AM Yvonne Marie MA documented in this encounter Miscellaneous Notes * Telephone Encounter - Elaine Rae ATC - 11/10/2024 12:23 PM EDT Scheduled for 11/14 at 2:15 * Telephone Encounter - Kandi Mcdaniel, Clerical Staff - 11/10/2024 9:43 AM EDT Patient would like a call back when gel injections for the knees are approved and can set up appt. documented in this encounter Plan of Treatment Not on file documented as of this encounter Goals Goal Patient Goal Type Associated Problems Recent Progress Patient-Stated? Author Maintain a healthy diet, exercise regularly and maintain an ideal body weight General No Trudy Winkler RMA Stay Tobacco Free Lifestyle No Trudy Winkler RMA documented as of this encounter Visit Diagnoses Not on filedocumented in this encounter Care Teams Material Control Clerk Relationship Specialty Start Date End Date Beronica Spencer APRN [address] [place] [id number] PCP - General Nurse Practitioner-Family 08/20/20 documented as of this encounter
--- OUTSIDE RECORDS SUMMARY | 2024-12-09 08:34 | XMS_ITS | Clinical Summary ---
Author Organization [facility] Address [address] [place] [address] Care Team Providers Care Grinder Set Up Operator Centerless Name Role Phone Beronica Spencer Primary Care Provider [phone] Allergies Active Allergy Reactions Criticality Noted Date [...] patient's age to complete this topic Insurance [facility] Care Teams Grinder Set Up Operator Centerless Relationship Specialty Start Date End Date Beronica Spencer [address] [place] [address] PCP - General 05/09/24
--- OUTSIDE RECORDS SUMMARY | 2024-12-09 08:34 | XMS_ITS | Referral Summary ---
Author Organization [facility] Address [address] [place] [address] Care Team Providers Care Electrical Transmission Engineer Name Role Phone Beronica Spencer Primary Care Provider [phone] Allergies Active Allergy Reactions Criticality Noted Date [...] Plan of Treatment Not on file Insurance [facility] Care Teams Electrical Transmission Engineer Relationship Specialty Start Date End Date Beronica Spencer [address] [place] [address] PCP - General 05/09/24
--- OUTSIDE RECORDS SUMMARY | 2024-12-09 08:34 | XMS_ITS | Encounter Summary ---
Author Organization [facility] [place] [place] [address] Care Team Providers Care Mammal Control Agent Name Role Phone Beronica Spencer APRN Primary Care Provider [phone] Encounter Details Date Type Department Care Team (Latest Contact Info) Description 11/15/2024 Travel Social History Tobacco Use Types Packs/Day Years [...] Date Recorded PHQ-2 Total Score 0 10/29/2022 [facility] Occupat ional Health - Occupational Stress [...] 2:27 PM EDT Kandi Philip RN * [place] Suicide Severity Rating Scale (Q shift for [...] to question 6) 0 11/15/2024 2:27 PM EDT Kandi Philip, RN 6. Have you ever done anythi [...] Yvonne Marie MA documented in this encounter Plan of Treatment [...] on filedocumented in this encounter Care Teams Mammal Control Agent Relationship Specialty Start Date End Date Beronica Spencer APRN [address] [place] [phone] PCP - General Nurse Practitioner-Family 08/20/20 documented as of this encounter
--- OUTSIDE RECORDS SUMMARY | 2024-12-09 08:34 | XMS_ITS | Encounter Summary ---
Author Organization [facility] Address [address] [place] [address] Care Team Providers Care Hot Kettle Tender Name Role Phone Beronica Spencer APRN Primary Care Provider [phone] Encounter Details Date Type Department Care Team ([facility] Contact Info) Description 11/29/2024 Telephone [facility] [address] [place] [address] Sotero Hoffman MD [address] [place] [address] Social History Tobacco Use Types Packs/Day Years [...] Date Recorded PHQ-2 Total Score 0 10/29/2022 [facility] of Occupat ional Health - Occupational Stress [...] Telephone Encounter - Elaine Rae ATC - 11/29/2024 1:53 PM EDT LMFCB - Okay to schedule in any open spot if she calls back * Telephone Encounter - Myriam iPckering, Clerical Staff - 11/29/2024 1:22 PM EDT Pt calling she would like to schedule for gel injections. Pls call pt to get schedule. documented in this encounter Plan of Treatment Not on file documented as of this encounter Goals Goal Patient Goal Type Associated Problems Recent Progress Patient-Stated? Author Maintain a healthy diet, exercise regularly and maintain an ideal body weight General No Trudy Winkler RMA Stay Tobacco Free Lifestyle No Trudy iWnkler RMA documented as of this encounter Visit Diagnoses Not on filedocumented in this encounter Care Teams Hot Kettle Tender Relationship Specialty Start Date End Date Beronica Spencer APRN [address] [place] [phone] PCP - General Nurse Practitioner-Family 08/20/20 documented as of this encounter
== END 2024-12-08 23:59 | disposition home or self-care (01) ==
LOC: LAB 12-09 08:35
PROVIDERS: PCP Nurse Practitioner Family; Visit Provider Nurse Practitioner Family
DX: D69.6 Thrombocytopenia, unspecified (principal)
CPT/HCPCS: 85025

== ENCOUNTER 2024-12-26 10:30 | Outpatient (CLI) | payer MEDICARE, MEDICAID, SELFPAY ==
--- OUTSIDE RECORDS SUMMARY | 2024-11-15 15:10 | XMS_ITS | Encounter Summary ---
Author Organization [place] [address] Care Team Providers Care Import Dispatcher Name Role Phone Beronica Spencer APRN Primary Care Provider [phone] Reason for Visit * Reason Comments Vaginal Injury Having female issue s when asked to explain, thinks its torn from last night, ob said couldn't do anything; denies bleeding; +pain Encounter Details Date Type Department Care Team (Late st Contact Info) Description 11/15/2024 3:10 PM EDT - 11/15/2024 3:50 PM EDT Emergency [facility] [address] [place] [address] Naresh Byrnes MD [address] [place] [address] Injury of vagina, initial encounter [...] Recorded PHQ-2 Total Score 0 10/29/2022 [facility] [place] of Occupat ional Health - Occupational Stress [...] 2:27 PM EDT Kandi Philip RN * [place] Suicide Severity Rating Scale (Q shift for [...] or Aquaphor. Follow-up with primary care or SPECIAL WARFARE OPERATOR as needed. Return to the emergency room [...] 09/21/2022 fluticasone propionate (FLONASE) 50 mcg/actuation Nasl [place], SuspensionIndica tions:Middle ear effusion, bilateral SHAKE LIQUID [...] Means Destination Comment s Home or Self [facility]itent[facility] documented in this encounter ED Notes * [...] Products Anaphylaxis Hydromorphone Itching SOA, Itching, anxiety [place] Pollen Other (See Comments) eyes itchy Gadolinium-Containing [...] APRN fluticasone propionate (FLONASE) 50 mcg/actuation Nasl [place], Suspension SHAKE LIQUID AND USE 1 SPRAY [...] Genitourinary: Comments: exam performed with Nubia HWANG beef cattle specialist with patient consent. Male significant otheralso present [...] on wound care. Follow-upwith primary care or SPECIAL WARFARE OPERATOR. She is also given return precautions. ED [...] documented in this encounter Plan of Treatment Upcoming Encounters Date Type Department Care Team (Late st Contact Info) Description 01/03/2025 1:30 PM EDT Office Visit Jonah MENDOZA [address] [place] [address] Jarrod Gomez DPM [address] [place] [address] documented as of this encounter Goals Goal Patient Goal Type Associated Problems Recent Progress Patient-Stated? Author Maintain a healthy diet, exercise regularly and maintain an ideal body weight General No Trudy Wiknler RMA Stay Tobacco Free Lifestyle No Trudy Winkler RMA documented as of this encounter Visit Diagnoses Diagnosis Injury of vagina, initial encounter- Primary documented in this encounter Care Teams Import Dispatcher Relationship Specialty Start Date End Date Beronica Spencer APRN [address] [place] [id number] PCP - General Nurse Practitioner-Family 08/20/20 documented as of this encounter
[2024-12-26 14:54] LABS: Hematocrit 34.1 % (37.0-47.0); Hemoglobin 11.6 g/dL (12.2-16.2); Immature Granulocytes % 0.2 %; Mean Corpuscular HGB Conc 34.0 g/dL (31.8-35.4); Mean Corpuscular Hemoglobin 31.5 pg (27.0-31.2); Mean Corpuscular Volume 92.7 fl (81-99); Nucleated Red Blood Cells % 0 %; Red Blood Count 3.68 M/mm3 (4.20-5.40); Red Cell Distribution Width-SD 45.0 fL; White Blood Count 5.9 K/mm3 (4.8-10.8)
[2024-12-26 14:57] LABS: Platelet Count 38 K/mm3 (142-424)
--- OUTSIDE RECORDS SUMMARY | 2024-12-27 10:28 | XMS_ITS | Encounter Summary ---
Author Organization [facility] Address [address] [place] [address] Care Team Providers Care Animal Control Supervisor Name Role Phone Beronica Spencer APRN Primary Care Provider [phone] Encounter Details Date Type Department Care Team ([facility] Contact Info) Description 11/10/2024 Telephone [facility] [address] [place] [address] Sotero Hoffman MD [address] [place] [address] Social History Tobacco Use Types Packs/Day Years [...] Date Recorded PHQ-2 Total Score 0 10/29/2022 [facility] [place] of Occupat ional Health - Occupational Stress [...] of Assessment Author No 10/29/2022 10:18 AM STEPHANIET Yvonne Griffin MA * Is the person [...] of Assessment Author No 10/29/2022 10:18 AM STEPHANIET Yvonne Griffin MA * Because of a physical, mental or emotional condition, does this person have difficulty doing errands alone such as visiting a doctor's office or shopping? Answer Date of Assessment Author No 10/29/2022 10:18 AM Yvonne Marie MA * Suicide Severity Rating Answer Date of Assessment Author No Risk 11/15/2024 2:27 PM EDT Kandi Philip RN * [place] Suicide Severity Rating Scale (Q shift for moderate and high) Question Answer Date of Assessment Author 1. In the past month, have y ou wished you were or wished you could go to sleep and not wake up? 0 11/15/2024 2:27 PM EDT Kandi Philip, RN 2. In the past month, have [...] Date Author No 10/29/2022 10:18 AM EDT Yovnne Griffin MA documented in this encounter Miscellaneous Notes [...] Description 01/03/2025 1:30 PM EDT Office Visit [facility] [address] [place] [address] Jarrod Gomez DPM [address] [place] [address] documented as of this encounter Goals Goal Patient Goal Type Associated Problems Recent Progress Patient-Stated? Author Maintain a healthy diet, exercise regularly and maintain an ideal body weight General No Trudy Winkler, ABBEY Stay Tobacco Free Lifestyle No Trudy Winkler RMA documented as of this encounter Visit Diagnoses Not on filedocumented in this encounter Care Teams Animal Control Supervisor Relationship Specialty Start Date End Date Beronica Spencer APRN [address] [place] [phone] PCP - General Nurse Practitioner-Family 08/20/20 documented as of this encounter
--- OUTSIDE RECORDS SUMMARY | 2024-12-27 10:28 | XMS_ITS | Encounter Summary ---
Author Organization [facility] [place] [address] Care Team Providers Care Director Software Name Role Phone Beronica Spencer APRN Primary Care Provider [phone] Encounter Details Date Type Department Care Team [...] Date Recorded PHQ-2 Total Score 0 10/29/2022 [facility] of Occupat ional Health - Occupational Stress [...] 2:27 PM EDT Kandi Philip RN * [place] Suicide Severity Rating Scale (Q shift for [...] life? 0 11/15/2024 2:27 PM EDT Kandi Philip, RN documented as of this encounter Mental Status * Because of a physical, mental or emotional condition, does this person have serious difficulty concentrating, remembering or making decisions? Answer Entry Date Author No 10/29/2022 10:18 AM EDT Yvonne Griffin MA documented in this encounter Plan of Treatment Upcoming Encounters Date Type Department Care Team (Late st Contact Info) Description 01/03/2025 1:30 PM EDT [facility] [address] [place] [address] Jarrod Gomez, YUE [address] [place] [address] documented as of this encounter Goals Goal Patient Goal Type Associated Problems Recent Progress Patient-Stated? Author Maintain a healthy diet, exercise regularly and maintain an ideal body weight General No Trudy Winkler RMA Stay Tobacco Free Lifestyle No Trudy Winkler RMA documented as of this encounter Visit Diagnoses Not on filedocumented in this encounter Care Teams Director Software Relationship Specialty Start Date End Date Beronica Spencer APRN [address] [place] [phone] PCP - General Nurse Practitioner-Family 08/20/20 documented as of this encounter
--- OUTSIDE RECORDS SUMMARY | 2024-12-27 10:28 | XMS_ITS | Encounter Summary ---
Author Organization [facility] Address [address] [place] [address] Care Team Providers Care Pressure Tester Operator Name Role Phone Beronica Spencer APRN Primary Care Provider [phone] Encounter Details Date Type Department Care Team ([facility] Contact Info) Description 11/29/2024 Telephone [facility] [address] [place] [address] Sotero Hoffman MD [address] [place] [address] Social History Tobacco Use Types Packs/Day Years [...] Date Recorded PHQ-2 Total Score 0 10/29/2022 [facility] [place] of Occupat ional Health - Occupational Stress [...] calls back * Telephone Encounter - Myriam Pickering, Clerical Staff - 11/29/2024 1:22 PM EDT Pt calling she would like to schedule for gel injections. Pls call pt to get schedule. documented in this encounter Plan of Treatment Upcoming Encounters Date Type Department Care Team (Late st Contact Info) Description 01/03/2025 1:30 PM EDT Office Visit [facility] [address] [place] [address] Jarrod Gomez DPM [address] [place] [address] documented as of this encounter Goals Goal Patient Goal Type Associated Problems Recent Progress Patient-Stated? Author Maintain a healthy diet, exercise regularly and maintain an ideal body weight General No Trudy Winkler RMA Stay Tobacco Free Lifestyle No Trudy Winkler RMA documented as of this encounter Visit Diagnoses Not on filedocumented in this encounter Care Teams Pressure Tester Operator Relationship Specialty Start Date End Date Beronica Spencer APRN [facility] [place] [phone] PCP - General Nurse Practitioner-Family 08/20/20 documented as of this encounter
--- OUTSIDE RECORDS SUMMARY | 2024-12-27 10:29 | XMS_ITS | Clinical Summary ---
Author Organization [facility] ([place], [place], [place], [place]) Address [address] [place] [address] Care Team Providers Care Snuff Drier Name Role Phone Beronica Sepncer Primary Care Provider [phone] Allergies Active Allergy Reactions Criticality Noted Date [...] 2023-2 5 season) 2024 04/08/2021 Influenza Vaccine (#1) 2025 DTAP/TDAP/TD VACCINES (3 - T d or Tdap) 07/30/2030 07/30/2020, 01/01/2017 Pneumococcal Vaccine: 0-49 Years Aged Out 07/11/2018 No longer eligible b ased on patient's age to complete this topic Insurance [facility] Member Subscriber Plan / Payer (Ef fective 2023-Present) Name:Fely Lara Relation to Subscriber:Self Name:Fely Lara Payer ID:Not on file Group ID:[id number] Type:Not on file Address: [facility] [id number] [place] [id number] Care Teams Snuff Drier Relationship Specialty Start Date End Date Beronica Spencer [address] [place] [address] PCP - General 05/09/24
--- OUTSIDE RECORDS SUMMARY | 2024-12-27 10:29 | XMS_ITS | Clinical Summary ---
Author Organization [facility] Address [address] [place] [address] Phone Care Team Providers Care Torpedo Man Name Role Phone SpencerElidaBeronica IGNACIO Primary Care Provider [phone] Allergies Active Allergy Reactions Criticality Noted Date Comments Gadolinium-Containing Contrast Media Hives 08/20/2020 Hydromorphone Itching Medium 06/12/2017 SOA, Itching, anxiety Iodine Hives 11/23/2018 Sertraline Anaphylaxis,Other (See Comments),Shortness Of Breath High 09/09/2016 Shellfish Containing Products Anaphylaxis High 06/26/2020 Gustine Pollen Other (See Comments) Medium 10/10/2024 eyes [...] Active fluticasone propionate (FLONASE) 50 mcg/actuation Nasl Good[place], SuspensionIndic ations:Middle ear effusion, bilateral SHAKE LIQUID [...] Type Department Care Team Description 11/29/[address] [address] Sotero Rosales MD 11/15/2024 3:10 PM EDT - 11/15/2024 3:[address] [facility] [address] [place] [address] Naresh Byrnes MD Injury of vagina, initial encounter (Primary Dx) Discharge Disposition: Home or Self Care 11/15/2024 Travel 11/10/[address] [address] Sotero Rosales MD 10/10/2024 2:15 PM EDT Office Visit [facility] [address] [place] [address] Sotero Rosales MD Primary osteoarthritis of both [...] Date Recorded PHQ-2 Total Score 0 10/29/2022 [facility] of Occupat ional [facility] - Occupational Stress Questionnaire Answer Date [...] 10/10/2024 2:07 PM EDT Plan of Treatment Upcoming Encounters Date Type Department Care Team (Late st Contact Info) Description 01/03/2025 1:30 PM EDT Office Visit [facility] [address] [place] [address] Jarrod Gomez, DPM [address] [place] [address] Health Maintenance Due Date Last Done Comments Hepatitis B Vaccine (1 of 3 - 19+ 3-dose series) 12/26/2007 HPV/Pap Cotest 2018 Annual Wellness Exam 10/30/2023 10/29/2022 COVID-19 Vaccine ( season) 2024 04/08/2021, 12/19/2020, 11/28/2020 Cervical Cancer Screening 08/12/2024 Pap Smear 08/12/2024 08/12/2021, 09/29/2016 Influenza Vaccine (#1) 2025 , 04/12/2020, 07/11/2018, Additional history exists DTaP/TDaP/Td (3 [...] Procedure Name Priority Date/Time Associated Diagnosis Comments HI ARTHROCENTESIS LARGE JOINT W/O US BILATERAL Routine 10/10/2024 2:15 PM EDT Primary osteoarthritis of both knees COSMETOLOGIST CYTOLOGY REQUEST (PAP ONLY) Routine 08/12/2021 3:21 PM EST Well woman exam with routine gynecological exam from Last 3 Months or Most Recently Relevant to Health Maintenance Results * HI ARTHROCENTESIS LARGE JOINT W/O US BILATERAL (10/10/2024 [...] to verify the correct patient, procedure, equipment, product support sales representative and site/side marked as required. Patient was prepped and draped in the usual sterile fashion. us Sotero Hoffman MD PROCEDURE/MINOR SURG ICAL ORDERABLES Final Result [facility] * COSMETOLOGIST CYTOLOGY REQUEST (PAP ONLY) (08/12/2021 3:21 PM EST) CASE REPORT Gynecologic Cytology Report Case: [id number] Authorizing Provider: Davion Alex MD Collected: 08/12/2021 1521 Ordering Location: [facility] NPTFTT Received: 08/12/2021 1521 First Screen: Lobo Michel CT Specimen: LIQUID-BASED PAP - CERVICAL/ENDOCERV ICAL, Cervix, Endocervical 08/13/2021 3:28 PM EST [facility] PAP FINAL DIAGNOSIS Negative for intraepithelial lesion or malignancy 08/13/2021 3:28 PM EST [facility] at 1528 EST MICROSCOPIC DESCRIPTION Microscopic examination is performed and the findings corroborate the diagnosis. 08/13/2021 3:28 PM EST [facility] PAP SMEAR ADEQUACY Satisfactory for evaluation 08/13/2021 3:28 PM EST [facility] ENDOCERVICAL T-ZONE Transformation zone present 08/13/2021 3:28 PM EST [facility] EMBEDDED IMAGES 3:28 PM EST [facility] PAP DISCLAIMER The Pap Smear is a screening test that aids in the detection of cervical cancer and cancer precursors. Both false positive and false negative results can occur. The test should be used at regular intervals, and positive results should be confirmed before definitive therapy. Processed using the ThinPrep Clerk Guide Automated cytology screening device (dinCloud). 08/13/2021 3:28 PM EST [facility] Thin Prep ENDOCERVICAL STRUCTURE / Unknown 08/12/2021 3:21 PM EST 08/12/2021 3:21 PM EST Davion Alex MD CYTOLOGY ORDERABLES Final Re sult [facility] [address] [phone] from Last 3 Months or Most Recently Relevant to Health Maintenance Insurance MEDICARE PPO MR Member Subscriber Plan / Payer (Ef fective 2023-Present) Name:Fely Lara Relation to Subscriber:Self Name:Fely Lara Payer ID:[id number] (NAIC) Group ID:[id number] Type:Not on file Address: [place] [id number] Member Subscriber Plan / Payer (Ef fective 2023-Present) Name:Fely Lara Relation to Subscriber:Self Name:Fely Lara Payer ID:[id number] (NAIC) Group ID:[id number] Type:Not on file Address: [place] [id number] [employer] on file [employer] MEDICARE PPO MR Member Subscriber Plan / Payer (Ef fective 2023-Present) Name:Fely Lara Relation to Subscriber:Self Name:Fely Lara Payer ID:[id number] (NAIC) Group ID:[id number] Type:Not on file Address: [place] [id number] Advance Directives For more information, please contact: [phone] Documents on File Type Date Recorded Patient Hr Specialist Expl anation ADVANCE DIRECTIVE 08/26/2021 10:24 AM LW 0 09/05/2017 Care Teams Torpedo Man Relationship Specialty Start Date End Date Beronica Spencer APRN [address] [place] [phone] PCP - General Nurse Practitioner-Family 08/20/20
--- OUTSIDE RECORDS SUMMARY | 2024-12-27 10:29 | XMS_ITS | Referral Summary ---
Author Organization [employer] ([place], [place], [place], [place]) Address [address] [place] [address] Care Team Providers Care Vulcanizer Operator Name Role Phone Beronica Spencer Primary Care Provider [phone] Allergies Active Allergy Reactions Criticality Noted Date [...] Plan of Treatment Not on file Insurance [facility] Care Teams Vulcanizer Operator Relationship Specialty Start Date End Date Beronica Spencer [address] [place] [address] PCP - General 05/09/24
== END 2024-12-26 23:59 | disposition home or self-care (01) ==
LOC: LAB.DROPOF 12-27 10:25
PROVIDERS: PCP Nurse Practitioner; Visit Provider Nurse Practitioner
DX: D69.6 Thrombocytopenia, unspecified (principal)
CPT/HCPCS: 85025

== ENCOUNTER 2025-01-10 08:52 | Outpatient (CLI) | payer MEDICARE, MEDICAID, SELFPAY ==
--- OUTSIDE RECORDS SUMMARY | 2023-09-14 10:15 | XMS_ITS | Continuity of Care Document ---
Author Organization [facility] Address [address] [place] [address] Phone Care Team Providers Care Electrical Manufacturing Engineer Name Role Phone Lucian SENIOR ENGINEERING TECH, Mara Unavailable Unavailable Procedures Procedure Date TELEHEALTH OFFICE/OUTPATIENT VISIT EST A Advance Directives Directive Yes / No Effective Date File Name No Information Encounters Encounter Description Practice Location Reason(s) For Visit Diagnoses Date Provider [facility], [address] [facility], [place], [address], [place] tel:[phone] 2 [facility] [place] No Information 2023 Lucian Terry. [address] [place], [place], [id number], [place]. tel:[phone] Family History Family Member Type Diagnosis Age At Onset No Information Payers Payer name Insurance type Covered green party ID Authoriza tion(s) [facility]- Medicare [place] [id number] [facility]- Medicaid [place] Bcbs BL [id number] [facility]- Medicaid [place] Wrap Payer [id number] 6 Social History Type Description Quantity Date [...]
--- OUTSIDE RECORDS SUMMARY | 2024-11-15 15:10 | XMS_ITS | Encounter Summary ---
Author Organization [place] [address] Care Team Providers Care Vacuum Technician Name Role Phone Beronica Spencer APRN Primary Care Provider [phone] Reason for Visit * Reason Comments Vaginal Injury Having female issue s when asked to explain, thinks its torn from last night, ob said couldn't do anything; denies bleeding; +pain Encounter Details Date Type Department Care Team (Late st Contact Info) Description 11/15/2024 3:10 PM EDT - 11/15/2024 3:[address] [facility] [address] [place] [address] Naresh Byrnes MD [address] [place] [address] Injury of vagina, initial encounter [...] Date Recorded PHQ-2 Total Score 0 10/29/2022 [facility] [place] of Occupat ional Health - Occupational Stress [...] 2:27 PM EDT Kandi Philip RN * [place] Suicide Severity Rating Scale (Q shift for [...] or Aquaphor. Follow-up with primary care or SUPERVISOR BURLING AND JOINING as needed. Return to the emergency room [...] 09/21/2022 fluticasone propionate (FLONASE) 50 mcg/actuation Nasl [place], SuspensionIndica tions:Middle ear effusion, bilateral SHAKE LIQUID [...] Means Destination Comment s Home or Self Correction documented in this encounter ED Notes * [...] Products Anaphylaxis Hydromorphone Itching SOA, Itching, anxiety [place] Pollen Other (See Comments) eyes itchy Gadolinium-Containing [...] APRN fluticasone propionate (FLONASE) 50 mcg/actuation Nasl [place], Suspension SHAKE LIQUID AND USE 1 SPRAY [...] Genitourinary: Comments: exam performed with Nubia HWANG fashion model with patient consent. Male significant otheralso present [...] on wound care. Follow-upwith primary care or SUPERVISOR BURLING AND JOINING. She is also given return precautions. ED [...] Primary documented in this encounter Care Teams Vacuum Technician Relationship Specialty Start Date End Date Beronica Spencer APRN [address] [place], [place] [address] PCP - General Nurse Practitioner-Family 08/20/20 documented as of this encounter
[2025-01-10 15:11] LABS: Hematocrit 44.1 % (37.0-47.0); Hemoglobin 14.3 g/dL (12.2-16.2); Immature Granulocytes % 0.4 %; Mean Corpuscular HGB Conc 32.4 g/dL (31.8-35.4); Mean Corpuscular Hemoglobin 30.6 pg (27.0-31.2); Mean Corpuscular Volume 94.4 fl (81-99); Nucleated Red Blood Cells % 0 %; Platelet Count 100 K/mm3 (142-424); Red Blood Count 4.67 M/mm3 (4.20-5.40); Red Cell Distribution Width-SD 47.8 fL; White Blood Count 14.3 K/mm3 (4.8-10.8)
[2025-01-10 16:04] LABS: Alanine Aminotransferase 15 U/L (12-78); Albumin Level 4.2 g/dl (3.5-5.0); Albumin/Globulin Ratio 1.8 (1.1-1.8); Alkaline Phosphatase 52 U/L (38-126); Anion Gap 10.6 mEq/L (5-15); Aspartate Amino Transferase 23 U/L (14-36); Blood Urea Nitrogen 14 mg/dl (7-17); Calcium 9.9 mg/dl (8.4-10.2); Carbon Dioxide 30 mmol/L (22.0-30.0); Chloride 103 mmol/L (98-107); Creatinine,Serum 0.80 mg/dl (0.52-1.04); Estimated Glomerular Filt Rate 81 ml/min (>60); GFR (African American) 98 ML/MIN (>60); Globulin 2.4 g/dL (1.3-3.2); Glucose 98 mg/dl (74-100); Potassium 4.6 mmoL/L (3.5-5.1); Sodium 139 mmol/L (136-145); Total Protein,Serum 6.6 g/dl (6.3-8.2)
[2025-01-10 16:18] LABS: Bilirubin,Total 0.1 mg/dl (0.2-1.3)
--- OUTSIDE RECORDS SUMMARY | 2025-01-11 11:47 | XMS_ITS | Encounter Summary ---
Author Organization [facility] Address [address] [place] [address] Care Team Providers Care Neon Pumper Name Role Phone Harley Faulkner MD Unavailable [phone] Primary Care Provider Unavailabl e Reason for Visit * Reason Onset Date Comments Hospital Follow Up 12/04/2024 Encounter Details Date Type Department Care Team (Late st Contact Info) Description 12/04/2024 Telephone [facility] Administrative Services [address] [place] [address] Andie Hart RN Hospital Follow Up Social History Tobacco Use Types Packs/Day Years Used Date Smoking Tobacco: Never Assessed Comments Unknown Sex and Gender Information Value Date Recorded Sex Assigned at Not on file Legal Sex Female 5:06 PM EDT Gender Identity Not on file Sexual Orientation Not on file documented as of this encounter Plan of Treatment Upcoming Encounters Date Type Department Care Team (Late st Contact Info) Description 02/13/2025 10:30 AM EDT Procedure Visit [facility] Pul[facility] [address] [place] [address] 02/13/2025 11:00 AM EDT [facility] [address] [place] [address] 04/04/2025 1:45 PM EDT [facility] [address] [facility] [address] [place] [address] Yessenia Nicole MD [address] [facility] [facility] [address] [place] [address] documented as of this encounter Visit Diagnoses Not on filedocumented in this encounter Care Teams Neon Pumper Relationship Specialty Start Date End Date Farida Daugherty Dr. PCP - General 11/12/24 Harley Faulkner MD [address] [place] [phone] Family Medicine 03/08/20 documented as of this encounter
--- OUTSIDE RECORDS SUMMARY | 2025-01-11 11:47 | XMS_ITS | Referral Summary ---
Author Organization [employer] ([place], [place], [place], [place]) Address [address] [place] [address] Care Team Providers Care Odd Job Laborer Name Role Phone Beronica Spencer Primary Care Provider [phone] Allergies Active Allergy Reactions Criticality Noted Date [...] Treatment Not on file Insurance [facility] Care Teams Odd Job Laborer Relationship Specialty Start Date End Date Beronica Spencer [address] [place] [address] PCP - General 05/09/24
--- OUTSIDE RECORDS SUMMARY | 2025-01-11 11:47 | XMS_ITS | Encounter Summary ---
Author Organization [facility] Address [address] [place] [address] Care Team Providers Care Call Out Clerk Name Role Phone Beronica Spencer APRN Primary Care Provider [phone] Encounter Details Date Type Department Care Team ([facility] Contact Info) Description 11/10/2024 Telephone [facility] [address] [place] [address] Sotero Hoffman MD [address] [place] [address] Social History Tobacco Use Types Packs/Day Years [...] Date Recorded PHQ-2 Total Score 0 10/29/2022 [facility] of Occupat ional Health - Occupational Stress [...] 2:27 PM EDT Kandi Philip RN * Brenton Suicide Severity Rating Scale (Q shift for [...] Yvonne Griffin MA documented in this encounter Miscellaneous [...] on filedocumented in this encounter Care Teams Call Out Clerk Relationship Specialty Start Date End Date Beronica Spencer APRN [address] [place], [place] [address] PCP - General Nurse Practitioner-Family 08/20/20 documented as of this encounter
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
--- OUTSIDE RECORDS SUMMARY | 2025-01-11 11:47 | XMS_ITS | Clinical Summary ---
Author Organization [employer] ([place], [place], [place], [place]) Address [address] [place] [address] Care Team Providers Care Digital Associate Media Director Name Role Phone Beronica Spencer Primary Care Provider [phone] Allergies Active Allergy Reactions Criticality Noted Date [...] patient's age to complete this topic Insurance [facility] Member Subscriber Plan / Payer (Ef fective 2023-Present) Name:Fely Lara Relation to Subscriber:Self Name:Fely Lara Payer ID:Not on file Group ID:[id number] Type:Not on file Address: [facility] [address] [place] [id number] Care Teams Digital Associate Media Director Relationship Specialty Start Date End Date Beronica Spencer [address] [place] [address] PCP - General 05/09/24
--- OUTSIDE RECORDS SUMMARY | 2025-01-11 11:48 | XMS_ITS | Encounter Summary ---
Author Organization [facility] Address [address] [place] [address] Care Team Providers Care Hvac Commercial Salesperson Name Role Phone Harley Faulkner MD Unavailable [phone] Phy, No Prim Primary Care Provider Unavailabl e Reason for Visit * Reason Onset Date Comments Appt with Dr. Moseley 11/30/2024 Encounter Details Date Type Department Care Team ([facility] st Contact Info) Description 11/30/2024 [facility]phone [facility] [address] [place], [place] [id number] Citlaly Douglas CRTT Appt with Dr. Moseley Social History Tobacco Use Types Packs/Day Years Used Date Smoking Tobacco: Never Assessed Comments Unknown Sex and Gender Information Value Date Recorded Sex Assigned at Not on file Legal Sex Female 5:06 PM EDT Gender Identity Not on file Sexual Orientation Not on file documented as of this encounter Miscellaneous Notes * Telephone Encounter - Citlaly Douglas CRTT - 11/30/2024 12:[address] Moseley, Ms. Lara called into clinic requesting to be seen in your clinic. She has not been seen since 2017. Please advise if she can be scheduled with you or if she needs any imagining first. /Antionette Mensah am out of the office tomorrow so if Dr. Moseley responds, please ensure Ms. Lara iscalled CURT with f/u info. Please note that she questioned if we still accepted her [facility] Medicare Advantage plan and I did advise her that effective 06/14/25 would be Non- participating with that plan. documented in this encounter Plan of Treatment Upcoming Encounters Date Type Department Care Team (Late st Contact Info) Description 02/13/2025 10:30 AM EDT Procedure Visit [facility] - Pulmonology [address] [facility] [address] [place] [address] 02/13/2025 11:00 AM EDT Procedure Visit [facility] - Pulmon[facility] [address] [facility] [address] [place] [address] 04/04/2025 1:45 PM EDT Office Visit [facility] [address] [facility] [address] [place] [address] Yessenia Nicole MD [address] [facility] [address] [place] [address] documented as of this encounter Visit Diagnoses Not on filedocumented in this encounter Care Teams Hvac Commercial Salesperson Relationship Specialty Start Date End Date Farida Daugherty Dr. PCP - General 11/12/24 Harley Faulkner MD [address] [place] [phone] Family Medicine 03/08/20 documented as of this encounter
--- OUTSIDE RECORDS SUMMARY | 2025-01-11 11:48 | XMS_ITS | Encounter Summary ---
Author Organization [facility] Address [address] [facility] [address] [place] [address] Care Team Providers Care Vice Chancellor Name Role Phone Harley Faulkner MD Unavailable [phone] Primary Care Provider Unavailabl e Reason for Visit * Reason Onset Date Comments Hospital Follow Up 11/21/2024 Encounter Details Date Type Department Care Team (Late st Contact Info) Description 11/21/2024 Telephone [facility] [address] [facility] [address] [place] [address] Andie Hart RN Hospital Follow Up Social History Tobacco Use Types Packs/Day Years Used Date Smoking Tobacco: Never Assessed Comments Unknown Sex and Gender Information Value Date Recorded Sex Assigned at Not on file Legal Sex Female 5:06 PM EDT Gender Identity Not on file Sexual Orientation Not on file documented as of this encounter Miscellaneous Notes * Telephone Encounter - Andie Hart RN - 11/22/2024 11:48 AM EDT Transitional Care Management Patient Contact Fely Marco 1990 Date of Discharge: 11/19/2024 Facility Discharged: [facility] Diagnosis at time of Discharge: 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 is doing well. No questions or cncerns at time of call. Are you able to complete your routine daily activities?: Yes Since your discharge, have you had any emergency room visits or admissions?: No Are you experiencing any other problems that should be addressed?: No Discharge Did you receive discharge instructions?: Yes, verbal and written Did you fill all your prescriptions?: Yes Are you taking your medications as prescribed?: Yes Follow-Up Visit Do you have a follow-up appointment scheduled with your PCP?: No (Pt. has scheduled f/u with Hematology. Encouraged f/u with PCP as well.) Do you understand the importance of the follow-up appointment?: Yes Do you have any conflicts that would cause you to miss your follow-up appointment?: No The hospital discharge medication list was reviewed and reconciled with the outpatient medication list. Yes. Andie Hart RN 11/22/2024 11:48 AM documented in this encounter Plan of Treatment Upcoming Encounters Date Type Department Care Team (Late st Contact Info) Description 02/13/2025 10:30 AM EDT Procedure Visit [facility] - Pulmonology [address] [facility] [address] [place] [address] 02/13/2025 11:00 AM EDT Procedure Visit [facility] [address] [facility] [address] [place] [address] 04/04/2025 1:45 PM EDT Office Visit [facility] [address] [facility] [address] [place] [phone] Yessenia Nicole MD [address] [facility] [address] [place], [place] [phone] documented as of this encounter Visit Diagnoses Not on filedocumented in this encounter Care Teams Vice Chancellor Relationship Specialty Start Date End Date Farida Daugherty Dr. PCP - General 11/12/24 Harley Faulkner MD [address] [place] [phone] Family Medicine 03/08/20 documented as of this encounter
--- OUTSIDE RECORDS SUMMARY | 2025-01-11 11:48 | XMS_ITS | Encounter Summary ---
Author Organization [facility] Address [address] [facility] [address] [place] [address] Care Team Providers Care Chicken Vaccinator Name Role Phone Harley Faulkner MD Unavailable [phone] Primary Care Provider Unavailabl e Reason for Referral * Consultation (Routine) - Authorized Specialty Diagnoses / Procedures Referred By Contac t Referred To Contact Pulmonology Diagnoses Pulmonary fibrosis, not otherwise specified History of histoplasmosis Procedures Six Minute Walk Test Adina Preston MD [address] [place] [address], [address] [place] [phone] Phone: tel: fax: [facility] - Pulmonology [address] [place], [place] [id number] Phone: tel: fax: Referral ID Status Reason Start Date Expiration Date Visits Requested Visits Authorized [id number] Authorized Specialty Services Required 11/30/2024 12/30/2025 1 1 * Consultation (Routine) - Authorized Specialty Diagnoses / Procedures Referred By Contac t Referred To Contact Pulmonology Diagnoses Pulmonary fibrosis, not otherwise specified History of histoplasmosis Procedures Pulmonary function testing Adina Preston MD [address] [place] [address], [address] [place] [phone] Phone: tel: fax: [facility] - Pulmonology [address] [place], [place] [id number] Phone: tel: fax: Referral ID Status Reason Start Date Expiration Date Visits Requested Visits Authorized [id number] Authorized Specialty Services Required 11/30/2024 12/30/2025 1 1 Encounter Details Date Type Department Care Team (Late Contact Info) Description 11/30/2024 Orders Only [facility] - Pulmonology [address] [address] Belem Springer RN Pulmonary fibrosis, not otherwise specified (Primary Dx); History of histoplasmosis Social History Tobacco Use Types Packs/Day Years [...] Visit [facility] - Pulmon[facility] [address] [address] 02/13/2025 11:00 AM EDT Procedure Visit [facility] - Pulmonology [address] [address] 04/04/2025 1:45 PM EDT Office Visit [facility] [address] [facility] 140 [place] [phone] Yessenia Nicole MD [address] [facility] [address] [place] [address] Scheduled Orders Name Type Priority Associated Diagnoses Orde r Schedule Pulmonary function testing PFT Routine Pulmonary fibrosis, not otherwise specified History of histoplasmosis 1 Occurrences starting 11/30/2024 until 11/30/2025 Six Minute Walk Test PFT Routine Pulmonary fibrosis, not otherwise specified History of histoplasmosis Ordered: 11/30/2024 documented as of this encounter Visit Diagnoses Diagnosis Pulmonary fibrosis, not otherwise specified- Primary History of histoplasmosis documented in this encounter Care Teams Chicken Vaccinator Relationship Specialty Start Date End Date Farida Daugherty Dr. PCP - General 11/12/24 Harley Faulkner MD [address] [place] [phone] Family Medicine 03/08/20 documented as of this encounter
--- OUTSIDE RECORDS SUMMARY | 2025-01-11 11:48 | XMS_ITS | Clinical Summary ---
Author Organization [facility] Address [address] [place] [address] Phone Care Team Providers Care Form Stripper Name Role Phone Elida Spencereen IGNACIO Primary Care Provider [phone] Allergies Active Allergy Reactions Criticality Noted Date Comments Gadolinium-Containing Contrast Media Hives 08/20/2020 Hydromorphone Itching Medium 06/12/2017 SOA, Itching, anxiety Iodine Hives 11/23/2018 Sertraline Anaphylaxis,Other (See Comments),Shortness Of Breath High 09/09/2016 Shellfish Containing Products Anaphylaxis High 06/26/2020 [place] Pollen Other (See Comments) Medium 10/10/2024 eyes [...] Active fluticasone propionate (FLONASE) 50 mcg/actuation Nasl [place], SuspensionIndic ations:Middle ear effusion, bilateral SHAKE LIQUID [...] Type Department Care Team Description 11/29/2024 Telephone [facility] [address] [place] [address] Sotero Hoffman MD 11/15/2024 3:10 PM EDT - 11/15/2024 3:[address] [facility] [address] [place] [address] Naresh Byrnes MD Injury of vagina, initial encounter (Primary Dx) Discharge Disposition: Home or Self Care 11/15/2024 Travel 11/10/[address] [address] Sotero Hoffman MD from Last 3 Months Immunizations Immunization Administration [...] Date Recorded PHQ-2 Total Score 0 10/29/2022 [facility] Occupat ional Health - Occupational Stress [...] Procedure Name Priority Date/Time Associated Diagnosis Comments ADVERTISING SALES MANAGER CYTOLOGY REQUEST (PAP ONLY) Routine 08/12/2021 3:21 PM EST Well woman exam with routine gynecological exam from Last 3 Months or Most Recently Relevant to Health Maintenance Results * ADVERTISING SALES MANAGER CYTOLOGY REQUEST (PAP ONLY) (08/12/2021 3:21 PM EST) CASE REPORT Gynecologic Cytology Report Case: [id number] Authorizing Provider: Davion Alex MD Collected: 08/12/2021 1521 Ordering Location: [facility] [id number] Received: 08/12/2021 1521 First Screen: Lobo Michel CT Specimen: LIQUID-BASED PAP - CERVICAL/ENDOCERV ICAL, Cervix, Endocervical 08/13/2021 3:28 PM EST [facility] PAP FINAL DIAGNOSIS Negative for intraepithelial lesion or malignancy 08/13/2021 3:28 PM EST [facility] at 1528 EST MICROSCOPIC DESCRIPTION Microscopic examination is performed and the findings corroborate the diagnosis. 08/13/2021 3:28 PM EST [facility] PAP SMEAR ADEQUACY Satisfactory for evaluation 08/13/2021 3:28 PM EST [facility] ENDOCERVICAL T-ZONE Transformation zone present 08/13/2021 3:28 PM EST [facility] EMBEDDED IMAGES 3:28 PM EST [facility] PAP DISCLAIMER The Pap Smear is a screening test that aids in the detection of cervical cancer and cancer precursors. Both false positive and false negative results can occur. The test should be used at regular intervals, and positive results should be confirmed before definitive therapy. Processed using the ThinPrep Plate Preparer Automated cytology screening device ([employer]). 08/13/2021 3:28 PM EST [facility] Thin Prep ENDOCERVICAL STRUCTURE / Unknown 08/12/2021 3:21 PM EST 08/12/2021 3:21 PM EST us Davion Alex MD CYTOLOGY ORDERABLES Final Re sult [facility] [address] [place] [address] from Last 3 Months or Most Recently Relevant to Health Maintenance Insurance MEDICARE PPO MR Member Subscriber Plan / Payer (Ef fective 2023-Present) Name:Fely Lara Relation to Subscriber:Self Name:Fely Lara Payer ID:[id number] (NAIC) Group ID:[id number] Type:Not on file Address: [place] [id number] [place] [id number] [employer] GENERIC on file [employer] MEDICARE PPO MR Member Subscriber Plan / Payer (Ef fective 2023-Present) Name:Fely Lara Relation to Subscriber:Self Name:Fely Lara Payer ID:[id number] (NAIC) Group ID:[id number] Type:Not on file Address: [place] [phone] Advance Directives For more information, please contact: [phone] Documents on File Type Date Recorded Patient Field Appraiser Expl anation ADVANCE DIRECTIVE 08/26/2021 10:24 AM LW 0 09/05/2017 Care Teams Form Stripper Relationship Specialty Start Date End Date Beronica Spencer APRN [address] [place] [phone] PCP - General Nurse Practitioner-Family 08/20/20
--- OUTSIDE RECORDS SUMMARY | 2025-01-11 11:48 | XMS_ITS | Encounter Summary ---
Author Organization [facility] Address [address] [place] [address] Care Team Providers Care Plasterer Apprentice Name Role Phone Beronica Spencer APRN Primary Care Provider [phone] Encounter Details Date Type Department Care Team ([facility] Contact Info) Description 11/29/2024 Telephone [facility] [address] [place] [address] Sotero Hoffman MD [address] [place] [address] Social History Tobacco Use Types Packs/Day Years [...] Date Recorded PHQ-2 Total Score 0 10/29/2022 [facility] [place] of Occupat ional Health - Occupational Stress [...] on filedocumented in this encounter Care Teams Plasterer Apprentice Relationship Specialty Start Date End Date Beronica Spencer APRN [address] [place], [place] [phone] PCP - General Nurse Practitioner-Family 08/20/20 documented as of this encounter
--- OUTSIDE RECORDS SUMMARY | 2025-01-11 11:48 | XMS_ITS | Encounter Summary ---
Author Organization [facility] [place] [address] Care Team Providers Care Chip Frier Name Role Phone Beronica Spencer APRN Primary Care Provider [phone] Encounter Details Date Type Department Care Team [...] Date Recorded PHQ-2 Total Score 0 10/29/2022 [facility] Occupat ional Health - Occupational [...] 2:27 PM EDT Kandi Philip RN * [place] Suicide Severity Rating Scale (Q shift for [...] on filedocumented in this encounter Care Teams Chip Frier Relationship Specialty Start Date End Date Beronica Spencer APRN [address] [place] [phone] PCP - General Nurse Practitioner-Family 08/20/20 documented as of this encounter
--- OUTSIDE RECORDS SUMMARY | 2025-01-11 11:48 | XMS_ITS | Clinical Summary ---
Author Organization [facility] Address [address] [place] [address] Care Team Providers Care Park Naturalist Name Role Phone Harley Faulkner MD Unavailable [phone] Primary Care Provider Unavailabl e Encounters * This document contains information received from the source organization and may not represent a complete record from that organization. Date Type Department Care Team Description 12/04/2024 Telephone [facility] Administrative Services [address] [facility] [address] [place], [place] [id number] Andie Hart, ERI Hospital Follow Up 11/30/2024 Orders Only [facility] - Pulmonology [address] [facility] [address] [place] [address] Belem Springer, ERI Pulmonary fibrosis, not otherwise specified (Primary Dx); History of histoplasmosis 11/30/2024 Telephone [facility] - Pul[facility] [address] [facility] [address] [place] [address] Citlaly Douglas, DIRECTOR SOFTWARE DEVELOPMENT Appt with Dr. Moseley 11/21/2024 Telephone [facility] Administrative Services [address] [place], [place] [id number] Andie Hart RN Hospital Follow Up from Last 3 Months Social History Tobacco Use Types Packs/Day Years Used Date Smoking Tobacco: Never Assessed Comments Unknown Sex and Gender Information Value Date Recorded Sex Assigned at Not on file Legal Sex Female 5:06 PM EDT Gender Identity Not on file Sexual Orientation Not on file Last Filed Vital Signs Vital Sign Reading Time Taken Comments Blood Pressure 114/63 04/11/2020 3:34 PM EDT Pulse 82 04/11/2020 3:34 PM EDT Temperature 36.4 C (97.6 F) 04/11/2020 3:34 PM EDT Respiratory Rate 18 01/24/2018 5:23 PM EDT Oxygen Saturation - - Inhaled Oxygen Concentration - - Weight 142 kg (313 lb 6 oz) 04/11/2020 3:34 PM E DT Height 154.9 cm (5' 1 ) 04/11/2020 3:34 PM EDT Body Mass Index 59.21 04/11/2020 3:34 PM EDT Plan of Treatment Upcoming Encounters Date Type Department Care Team (Late st Contact Info) Description 02/13/2025 10:30 AM EDT Procedure Visit [facility] - Pulmonology [address] [facility] [address] [place] [address] 02/13/2025 11:00 AM EDT Procedure Visit [facility] Pulmonology [address] [facility] [address] [place] [address] 04/04/2025 1:45 PM EDT Office Visit [facility] [address] [facility] [address] [place] [address] Yessenia Nicole MD [address] [facility] [address] [address] [place] [address] Health Maintenance Due Date Last Done Comments HIV Screening 1988 Hepatitis C Screening 1988 Medicare Annual Wellness (AWV) 1988 MMR Vaccines (1 of 1 - Standard series) 1989 Varicella Vaccines (1 of 2 - 13+ 2-dose series) 2001 Hepatitis B Screening 2006 DTaP/Tdap/Td Vaccines (1 - Tdap) 12/26/2007 Hepatitis A Vaccines (1 of 2 - Risk 2-dose series) 12/26/2007 Hepatitis B Vaccines (1 of 3 - 19+ 3-dose series) 12/26/2007 Pneumococcal Vaccine (1 of 2 - PCV) 12/26/2007 HPV/Cotest 2018 COVID-19 Vaccine ( season) 2024 04/08/2021, 12/19/2020, 11/28/2020 Depression Risk Screening 06/14/2024 SDOH Screening 06/14/2024 Cervical Cancer Screening 08/12/2024 Pap Smear 08/12/2024 08/12/2021, 09/29/2016 Influenza Vaccine (#1) 2025 , 04/12/2020, 04/12/2020, Additional history exists Diabetes Screening 11/30/2025 11/30/2024, 0 09/21/2023, 08/25/2021, Additional history exists Lipid Panel 10/30/2027 10/29/2022, 08/25/2021 Zoster Vaccines (1 of 2) 2038 BMI Intervention Completed 04/11/2020 HIB Vaccines Aged Out No longer eligi ble based on patient's age to complete this topic HPV Vaccines Aged Out No longer eligi ble based on patient's age to complete this topic IPV Vaccines Aged Out No longer eligi ble based on patient's age to complete this topic Meningococcal B Vaccine Aged Out No l onger eligible based on patient's age to complete this topic Meningococcal Vaccine Aged Out No marbin rocky eligible based on patient's age to complete this topic Rotavirus Vaccines Aged Out No longer eligible based on patient's age to complete this topic Procedures Procedure Name Priority Date/Time Associated Diagnosis Comments FERRITIN Routine 01/05/2025 8:27 AM EDT IRON, TIBC AND FERRITIN PANEL Routine 01/05/2025 8:27 AM EDT AUTODIFF Routine 01/05/2025 8:27 AM EDT BCC CBC W/ AUTO DIFF Routine 01/05/2025 8:27 AM EDT AUTODIFF Routine 12/29/2024 9:08 AM EDT BCC CBC W/ AUTO DIFF Routine 12/29/2024 9:08 AM EDT CULTURE BLOOD Timed 12/01/2024 12:03 PM EDT CULTURE BLOOD STAT 12/01/2024 2:17 AM EDT CULTURE BLOOD STAT 12/01/2024 2:17 AM EDT AUTODIFF STAT 11/30/2024 10:46 PM EDT RBC MORPHOLOGY STAT 11/30/2024 10:46 PM EDT CBC AND DIFFERENTIAL STAT 11/30/2024 10:46 PM EDT CMP COMPREHENSIVE METABOLIC PANEL STAT 11/30/2024 10:46 PM EDT PT/INR PROTHROMBIN TIME PTT STAT 11/30/2024 10:46 PM EDT from Last 3 Months Results * (ABNORMAL) BCC CBC W/ AUTO DIFF (01/05/2025 8:27 AM EDT) Only the most recent of2 resultswithin the time period is included. WBC 11.1(H) 4.0 - 10.8 x10(3)/ul 01/05/2025 8:52 AM EDT [facility] Rem 2.0 RBC 4.47 3.77 - 5.16 x10(6)/ul 01/05/2025 8:52 AM EDT [facility] HE Rem 2.0 HGB 13.9 12.0 - 16.0 Gram/dL 01/05/2025 8:52 AM EDT [facility] Rem 2.0 Hematocrit 40.4 35.0 - 45.0 % 01/05/2025 8:52 AM EDT [facility] Rem 2.0 MCV 90.3 79.4 - 94.8 fL 01/05/2025 8:52 AM EDT [facility] Rem 2.0 MCH 31.0 25.6 - 32.2 pg 01/05/2025 8:52 AM EDT [facility] Rem 2.0 MCHC 34.4 32.3 - 36.5 Gram/dL 01/05/2025 8:52 AM EDT [facility] Rem 2.0 RDW 14.0 11.0 - 15.5 % 01/05/2025 8:52 AM EDT [facility] Rem 2.0 Platelets 80(L) 140 - 420 x10(3)/ul 01/05/2025 8:52 AM EDT [facility] Rem 2.0 MPV 8.2(L) 8.7 - 12.0 fL 01/05/2025 8:52 AM EDT [facility] Rem 2.0 SLIDE REVIEW NONE 01/05/2025 8:52 AM EDT [facility] Rem 2.0 Blood 01/05/2025 8:27 AM EDT 01/05/2025 8:45 AM EDT [facility] - 01/05/2025 8:53 AM EDT 01/05 Ritux - has hep panel Performed by [facility], [address] [place] [address] us Chhaya Jacky Corbin MD LAB BLOOD ORDERABLES Final Re sult [facility] [address] [place] [address], [facility] HE Rem 2.0 Pathology Department [address] [place] [address] * AUTODIFF (01/05/2025 8:27 AM EDT) Only the most recent of3 resultswithin the time period is included. NEUT % 61.1 34.0 - 75.0 % 01/05/2025 8:52 AM EDT [facility] HE Rem 2.0 LYMPH % 30.5 17.0 - 53.0 % 01/05/2025 8:52 AM EDT [facility] Rem 2.0 MONO % 7.9 2.0 - 12.0 % 01/05/2025 8:52 AM EDT [facility] Rem 2.0 EOS % 0.4 0.0 - 7.0 % 01/05/2025 8:52 AM EDT [facility] HE Rem 2.0 BASO % 0.1 0.0 - 3.0 % 01/05/2025 8:52 AM EDT [facility] HE Rem 2.0 NEUT # 6.8 1.5 - 7.1 x10(3)/ul 01/05/2025 8:52 AM EDT [facility] Rem 2.0 LYMPH # 3.4 1.0 - 3.5 x10(3)/ul 01/05/2025 8:52 AM EDT [facility] HE Rem 2.0 MONO # 0.9 0.0 - 1.0 x10(3)/ul 01/05/2025 8:52 AM EDT [facility] Rem 2.0 EOS # 0.0 0.0 - 0.7 x10(3)/ul 01/05/2025 8:52 AM EDT [facility] HE Rem 2.0 BASO # 0.0 0.0 - 0.3 x10(3)/ul 01/05/2025 8:52 AM EDT UL HE Rem 2.0 Blood 01/05/2025 8:27 AM EDT 01/05/2025 8:45 AM EDT [facility] - 01/05/2025 8:53 AM EDT 01/05 Ritux - has hep panel Ordered by Discern Expert. [email or web address] Performed by [facility], [address] [place] [address] us Chhaya Corbin MD LAB BLOOD ORDERABLES Final Re sult [facility] [address] [place] [address], UL HE Rem 2.0 Pathology Department [address] [place] [address] * IRON, TIBC AND FERRITIN PANEL (01/05/2025 8:27 AM EDT) Iron 92 50 - 212 ug/dL 01/05/2025 9:07 AM EDT [facility] CH Rem 2.0 Transferrin 246 203 - 362 mg/dL 01/05/2025 9:07 AM EDT [facility] CH Rem 2.0 TIBC 344 269 - 535 ug/dL 01/05/2025 9:07 AM EDT UL CH Rem 2.0 TRANSFERRIN SAT 27 15 - 50 % 9:07 AM EDT UL CH Rem 2.0 Blood 01/05/2025 8:27 AM EDT 01/05/2025 8:39 AM EDT [facility] - 01/05/2025 9:07 AM EDT 01/05 C1 Ritux - has hep panel Performed by [facility], [address] [place] [address] Chhaya Corbin MD LAB BLOOD ORDERABLES Final Re sult Performing Organization Address [facility] de Phone Number [facility] [address] [place] [address], UL CH Rem 2.0 Pathology Department [address] [place] [address] * Ferritin (01/05/2025 8:27 AM EDT) Ferritin 16.0 11.0 - 306.8 ng/mL 01/05/2025 9:17 AM EDT UL CH Rem 2.0 Blood 01/05/2025 8:27 AM EDT 01/05/2025 8:39 AM EDT [facility] - 01/05/2025 9:17 AM EDT 01/05 C1 Ritux - has hep panel Performed by [facility], [address] [place] [address] Chhaya Corbin MD LAB BLOOD ORDERABLES Final Re sult Performing Organization Address [facility] de Phone Number [facility] [address] [place] [address], UL CH Rem 2.0 Pathology Department [address] [place] [address] * CULTURE BLOOD (12/01/2024 12:03 PM EDT) Only the most recent of3 resultswithin the time period is included. Blood 12/01/2024 12:0 3 PM EDT 12/01/2024 2:02 PM EDT [facility] - 12/06/2024 4:02 PM EDT KEIKO Kenney : Sex Female t: 9 : Microbiology - Bacteriology PROCEDURE: Culture Blood [R1] COLLECTED DATE/TIME: 12/01/2024 12:03 EDT SOURCE: Blood START DATE/TIME: 12/01/2024 14:02 EDT BODY SITE: ORDERING PHYSICIAN TO [place] MD-INT FREE TEXT SOURCE: FINAL REPORTS Final Report [] Verified Date/Time: 12/06/2024 16:02 EDT No growth at 5 days. Performing Locations R1: This test was performed at: [facility], Pathology Department, [address] [place] [address], [facility] , , To Small[place] MD LAB BLOOD ORDERABLES Final R esult Performing Organization Address [facility] de Phone Number [facility] [address] [place] [address], * (ABNORMAL) RBC MORPHOLOGY (11/30/2024 10:46 PM EDT) RBC MORPHOLOGY NORMAL Normal 11/30/2024 11:41 PM EDT [facility] CH Remisol 2.[address] ESTIMATE DECREASED( A) 11/30/2024 11:41 PM EDT [facility] CH Remisol 2.0 SS Blood 11/30/2024 10:4 6 PM EDT 11/30/2024 11:04 PM EDT [facility] - 11/30/2024 11:41 PM EDT pt has two charts, plz merge labs, PLT 16 Ordered by Discern Expert. Performed by [facility], [address] [place] [address] Timi Morley MD LAB BLOOD ORDERABLES F inal Result Performing Organization Address [facility]/ZIP Co de Phone Number [facility] [address] [place] [address], [facility] CH Remisol 2.0 SS Pathology Department [address] [place] [address] * (ABNORMAL) PT/INR PROTHROMBIN TIME PTT (11/30/2024 10:46 PM EDT) PT 10.1(L) 10.2 - 12.9 Second 11/30/2024 11:28 PM EDT [facility] Heme Coag UA INR 0.8 11/30/2024 11:28 PM EDT [facility] Heme Coag UA Comment: Recommended INR range for Oral Anticoagulant Therapy : STANDARD: 2.0 - 3.0 HIGH: 3.0 - 4.5 NOTE: Recommended range will be different for patients with mechanical implants. PTT 33.1 26.6 - 35.9 Second 11/30/2024 11:27 PM EDT [facility] Heme Coag UA Comment:Heparin therapeutic range is 55-95 sec. When the PTT is> 95 sec, if on heparin, refer to heparin protocol. If not on heparin, recommend appropriate workup. Blood 11/30/2024 10:4 6 PM EDT 11/30/2024 11:04 PM EDT [facility] - 11/30/2024 11:28 PM EDT pt has two charts, plz merge labs Performed by [facility], [address] [place] [address] us Timi Morley MD LAB BLOOD ORDERABLES F inal Result [facility] [address] [place] [address], [facility] Heme Coag UA Pathology Department [address] [place] [address] * (ABNORMAL) CBC With Differential (11/30/2024 10:46 PM EDT) WBC 7.9 4.0 - 10.8 x10(3)/ul 11/30/2024 11:41 PM EDT [facility] Heme Coag UA SS RBC 3.92 3.77 - 5.16 x10(6)/ul 11/30/2024 11:41 PM EDT [facility] Heme Coag UA SS HGB 12.4 12.0 - 16.0 Gram/dL 11/30/2024 11:41 PM EDT [facility] Heme Coag UA SS Hematocrit 34.8(L) 35.0 - 45.0 % 11/30/2024 11:41 PM EDT [facility] Heme Coag UA SS MCV 88.8 79.4 - 94.8 fL 11/30/2024 11:41 PM EDT [facility] Heme Coag UA SS MCH 31.8 25.6 - 32.2 pg 11/30/2024 11:41 PM EDT [facility] Heme Coag UA SS MCHC 35.7 32.3 - 36.5 Gram/dL 11/30/2024 11:41 PM EDT [facility] Heme Coag UA SS RDW 14.4 11.0 - 15.5 % 11/30/2024 11:41 PM EDT [facility] Heme Coag UA SS Platelets 16(A) 140 - 420 x10(3)/ul 11/30/2024 11:41 PM EDT [facility] Heme Coag UA SS Comment:Critical Result PLT: 16 Called to and read back by: ELZBIETA BEST at: 11/30/2024 23:41:42 by:DONNY. MPV 9.4 8.7 - 12.0 fL 11/30/2024 11:41 PM EDT [facility] Heme Coag UA SS SLIDE REVIEW SCAN 11/30/2024 11:39 PM EDT [facility] CH Remisol 2.0 SS Blood 11/30/2024 10:4 6 PM EDT 11/30/2024 11:04 PM EDT [facility] - 11/30/2024 11:41 PM EDT pt has two charts, plz merge labs, PLT 16 Performed by [facility], [address] [place] [address] us Timi Morley MD LAB BLOOD ORDERABLES F inal Result [facility] [address] [place] [address], [facility] Heme Coag UA SS Pathology Department [address] [place] [id number] CH Remisol 2.0 SS Pathology Department [address] [place] [address] * (ABNORMAL) Comprehensive metabolic panel (11/30/2024 10:46 PM EDT) Sodium 140 136 - 145 mmol/L 11/30/2024 11:29 PM EDT [facility] CH Remisol 2.0 SS Potassium 4.0 3.5 - 5.1 mmol/L 11/30/2024 11:29 PM EDT [facility] CH Remisol 2.0 SS Chloride 104 98 - 110 mmol/L 11/30/2024 11:29 PM EDT [facility] CH Remisol 2.0 SS CO2 30 21 - 31 mmol/L 11/30/2024 11:29 PM EDT [facility] CH Remisol 2.0 SS Anion Gap 6.0 2.0 - 11.0 11/30/2024 11:29 PM EDT L CH Remisol 2.0 SS Calcium 9.0 8.6 - 10.2 mg/dL 11/30/2024 11:29 PM EDT [facility] CH Remisol 2.0 SS Glucose 129(H) 74 - 109 mg/dL 11/30/2024 11:29 PM EDT [facility] CH Remisol 2.0 SS BUN 16 7 - 25 mg/dL 11/30/2024 11:29 PM EDT [facility] CH Remisol 2.0 SS Creatinine 0.80 0.60 - 1.20 mg/dL 11/30/2024 11:29 PM EDT [facility] CH Remisol 2.0 SS BUN/Creatinine Ratio 20.0 6.0 - 22.0 11/30/2024 11:29 PM EDT L CH Remisol 2.0 SS Albumin 3.8 3.5 - 5.2 Gram/dL 11/30/2024 11:29 PM EDT [facility] CH Remisol 2.0 SS Total Protein 7.3 6.4 - 8.9 Gram/dL 11/30/2024 11:29 PM EDT [facility] CH Remisol 2.0 SS A/G Ratio 1.1 1.0 - 1.7 11/30/2024 11:29 PM EDT L CH Remisol 2.0 SS Alkaline Phosphatase 68 34 - 104 Units/Lite r 11/30/2024 11:29 PM EDT L CH Remisol 2.0 SS ALT (SGPT) 24 <=24 Units/Lite r 11/30/2024 11:29 PM EDT [facility] CH Remisol 2.0 SS AST 27 13 - 39 Units/Lite r 11/30/2024 11:29 PM EDT L CH Remisol 2.0 SS Total Bilirubin 0.4 0.3 - 1.0 mg/dL 11/30/2024 11:29 PM EDT [facility] CH Remisol 2.0 SS Globulin, Total 3.5 2.0 - 3.5 Gram/dL 11/30/2024 11:29 PM EDT [facility] CH Remisol 2.0 SS EGFR 98 >=60 mL/min/1.7 3m2 11/30/2024 11:29 PM EDT [facility] CH Remisol 2.0 SS Comment:eGFR calculation per formed using the CKD-EPI 2020 equation (race variable excluded) Blood 11/30/2024 10:4 6 PM EDT 11/30/2024 11:04 PM EDT [facility] - 11/30/2024 11:29 PM EDT pt has two charts, plz merge labs Performed by [facility], [address] [place] [id number] us Timi Morley MD LAB BLOOD ORDERABLES F inal Result Performing Organization Address City/State/[facility] Co de Phone Number [facility] [address] [place] [address], [facility] CH Remisol 2.0 SS Pathology Department [address] [place] [address] from Last 3 Months Insurance [employer] MEDICARE ADVANTAGE Care Teams Park Naturalist Relationship Specialty Start Date End Date Farida Daugherty Dr. PCP - General 11/12/24 Harley Faulkner MD [address] [place] [phone] Family Medicine 03/08/20
== END 2025-01-10 23:59 | disposition home or self-care (01) ==
LOC: LAB.DROPOF 01-11 11:43
PROVIDERS: PCP Nurse Practitioner; Visit Provider Nurse Practitioner
DX: D69.6 Thrombocytopenia, unspecified (principal)
CPT/HCPCS: 80053; 85025

== ENCOUNTER 2025-02-09 17:46 | Outpatient (CLI) | payer MEDICARE, SELFPAY ==
--- OUTSIDE RECORDS SUMMARY | 2023-09-14 10:15 | XMS_ITS | Continuity of Care Document ---
Author Organization [facility] Address [address] [place] [address] Phone Care Team Providers Care Scrap Collector Name Role Phone Lucian MEDICAL ANTHROPOLOGIST, Mara Unavailable Unavailable Procedures Procedure Date TELEHEALTH OFFICE/OUTPATIENT VISIT EST A Advance Directives Directive Yes / No Effective Date File Name No Information Encounters Encounter Description Practice Location Reason(s) For Visit Diagnoses Date Provider [facility], [address] [facility], [place], [address], [place] tel:[phone] 2 [facility] [place] No Information 2023 Lucian Terry. [address] [place], [place], [id number], [place]. tel:[phone] Family History Family Member Type Diagnosis Age At Onset No Information Payers Payer name Insurance type Covered republican ID Authoriza tion(s) [facility]- Medicare MB [id number] [facility]- Medicaid [place] Bcbs BL [id number] [facility]- Medicaid [place] Wrap Payer [id number] Social History Type Description Quantity Date [...]
--- OUTSIDE RECORDS SUMMARY | 2025-02-09 17:50 | XMS_ITS | Referral Summary ---
Author Organization [employer] ([place], [place], [place], [place]) Address [address] [place] [address] Care Team Providers Care Electric Tool Repairer Name Role Phone Beronica Spencer Primary Care Provider [phone] Allergies Active Allergy Reactions Criticality Noted Date [...] Plan of Treatment Not on file Insurance [facility] Care Teams Electric Tool Repairer Relationship Specialty Start Date End Date Beronica Spencer [address] [place] [address] PCP - General 05/09/24
--- OUTSIDE RECORDS SUMMARY | 2025-02-09 17:50 | XMS_ITS | Encounter Summary ---
Author Organization [facility] Address [address] [place] [address] Care Team Providers Care Investigator Narcotics Name Role Phone Beronica Spencer APRN Primary Care Provider [phone] Encounter Details Date Type Department Care Team ([facility] Contact Info) Description 11/10/2024 Telephone [facility] [address] [place] [address] Sotero Hoffman MD [address] [place] [address] Social History Tobacco Use Types Packs/Day Years [...] Date Recorded PHQ-2 Total Score 0 10/29/[address] [facility] - Occupational Stress [...] 2:27 PM EDT Kandi Philip RN * Cobb Suicide Severity Rating Scale (Q shift for [...] on filedocumented in this encounter Care Teams Investigator Narcotics Relationship Specialty Start Date End Date Beronica Spencer APRN [address] [place], [place] [phone] PCP - General Nurse Practitioner-Family 08/20/20 documented as of this encounter
--- OUTSIDE RECORDS SUMMARY | 2025-02-09 17:50 | XMS_ITS | Clinical Summary ---
Author Organization [facility] Address [address] [place] [address] Care Team Providers Care Press Maintainer Name Role Phone Harley Faulkner MD Unavailable [phone] Primary Care Provider Unavailabl e Encounters * This document contains information received from the source organization and may not represent a complete record from that organization. Date Type Department Care Team Description 12/04/2024 Telephone [facility] Administrative Services [address] [facility] [address] [place] [address] Andie Hart, ERI Hospital Follow Up 11/30/2024 Orders Only [facility] - Pulmonology [address] [place], [place] [id number] Belem Springer, ERI Pulmonary fibrosis, not otherwise specified (Primary Dx); History of histoplasmosis 11/30/2024 Telephone [facility] - Pulmonology [address] [place] [address] Citlaly Douglas, FLOUR WORKER Appt with Dr. Moseley 11/21/2024 Telephone [facility] Administrative Services [address] [facility] [address] [place] [address] Andie Hart RN Hospital Follow Up from [...] Visit [facility] [address] [facility] [address] [place] [address] 02/13/2025 11:00 AM EDT Procedure Visit [facility] - Pulmonology [address] [facility] [address] [place] [address] 04/04/2025 1:45 PM EDT Office Visit [facility] [address] [facility] [address] [place] [address] Yessenia Nicole MD [address] [facility] [address] [place] [address] Health Maintenance Due Date Last [...] Procedure Name Priority Date/Time Associated Diagnosis Comments AUTODIFF Routine 01/26/2025 9:39 AM EDT BCC CBC W/ AUTO DIFF Routine 01/26/2025 9:39 AM EDT AUTODIFF Routine 01/19/2025 10:53 AM EDT RBC MORPHOLOGY Routine 01/19/2025 10:53 AM EDT BCC CBC W/ AUTO DIFF Routine 01/19/2025 10:53 AM EDT AUTODIFF Routine 01/12/2025 12:09 PM EDT BCC CBC W/ AUTO DIFF Routine 01/12/2025 12:09 PM EDT FERRITIN Routine 01/05/2025 8:27 AM EDT IRON, [...] from Last 3 Months Results * (ABNORMAL) [facility] CBC W/ AUTO DIFF (01/26/2025 9:39 AM EDT) Only the most recent of5 resultswithin the time period is included. WBC 7.4 4.0 - 10.8 x10(3)/ul 01/26/2025 9:53 AM EDT [facility] Rem 2.0 RBC 4.07 3.77 - 5.16 x10(6)/ul 01/26/2025 9:53 AM EDT [facility] HE Rem 2.0 HGB 12.8 12.0 - 16.0 Gram/dL 01/26/2025 9:53 AM EDT [facility] Rem 2.0 Hematocrit 36.8 35.0 - 45.0 % 01/26/2025 9:53 AM EDT [facility] HE Rem 2.0 MCV 90.6 79.4 - 94.8 fL 01/26/2025 9:53 AM EDT [facility] Rem 2.0 MCH 31.5 25.6 - 32.2 pg 01/26/2025 9:53 AM EDT UL HE Rem 2.0 MCHC 34.7 32.3 - 36.5 Gram/dL 01/26/2025 9:53 AM EDT [facility] HE Rem 2.0 RDW 13.9 11.0 - 15.5 % 01/26/2025 9:53 AM EDT [facility] HE Rem 2.0 Platelets 51(L) 140 - 420 x10(3)/ul 01/26/2025 9:53 AM EDT UL HE Rem 2.0 MPV 8.3(L) 8.7 - 12.0 fL 01/26/2025 9:53 AM EDT [facility] HE Rem 2.0 SLIDE REVIEW NONE 01/26/2025 9:53 AM EDT [facility] HE Rem 2.0 Blood 01/26/2025 9:39 AM EDT 01/26/2025 9:44 AM EDT [facility] LAB - 01/26/2025 9:53 AM EDT Performed by [facility], [address] [place] [address] us Chhaya Corbin MD LAB BLOOD ORDERABLES Final Re sult [facility] [address] [place] [address], [facility] HE Rem 2.0 Pathology Department [address] [place] [address] * (ABNORMAL) AUTODIFF (01/26/2025 9:39 AM EDT) Only the most recent of6 resultswithin the time period is included. NEUT % 75.9(H) 34.0 - 75.0 % 01/26/2025 9:53 AM EDT [facility] Rem 2.0 LYMPH % 16.0(L) 17.0 - 53.0 % 01/26/2025 9:53 AM EDT [facility] Rem 2.0 MONO % 6.9 2.0 - 12.0 % 01/26/2025 9:53 AM EDT [facility] Rem 2.0 EOS % 0.8 0.0 - 7.0 % 01/26/2025 9:53 AM EDT [facility] Rem 2.0 BASO % 0.4 0.0 - 3.0 % 01/26/2025 9:53 AM EDT [facility] Rem 2.0 NEUT # 5.6 1.5 - 7.1 x10(3)/ul 01/26/2025 9:53 AM EDT [facility] Rem 2.0 LYMPH # 1.2 1.0 - 3.5 x10(3)/ul 01/26/2025 9:53 AM EDT [facility] Rem 2.0 MONO # 0.5 0.0 - 1.0 x10(3)/ul 01/26/2025 9:53 AM EDT [facility] Rem 2.0 EOS # 0.1 0.0 - 0.7 x10(3)/ul 01/26/2025 9:53 AM EDT [facility] Rem 2.0 BASO # 0.0 0.0 - 0.3 x10(3)/ul 01/26/2025 9:53 AM EDT [facility] Rem 2.0 Blood 01/26/2025 9:39 AM EDT 01/26/2025 9:44 AM EDT [facility] - 01/26/2025 9:53 AM EDT Ordered by Discern Expert. [email or web address] Performed by [facility], [address] [place] [address] us Chhaya Corbin MD LAB BLOOD ORDERABLES Final Re sult [facility] [address] [place] [address], [facility] HE Rem 2.0 Pathology Department [address] [place] [address] * (ABNORMAL) RBC MORPHOLOGY (01/19/2025 10:53 AM EDT) Only the most recent of2 resultswithin the time period is included. RBC MORPHOLOGY SEE REPORT(A) Normal 01/19/2025 11:50 AM EDT [facility] Rem 2.[address] ESTIMATE DECREASED (A) 01/19/2025 11:50 AM EDT [facility] Rem 2.0 ANISOCYTOSIS 1+ 01/19/2025 11:50 AM EDT [facility] Rem 2.0 Blood 01/19/2025 10:5 3 AM EDT 01/19/2025 10:54 AM EDT [facility] - 01/19/2025 11:50 AM EDT 01/19 tx Ordered by Discern Expert. Performed by [facility], [address] [place] [address] Chhaya Corbin MD LAB BLOOD ORDERABLES Final Re sult [facility] [address] [place] [address], [facility] HE Rem 2.0 Pathology Department [address] [place] [address] * IRON, TIBC AND FERRITIN PANEL (01/05/2025 8:27 AM EDT) Iron 92 50 - 212 ug/dL 01/05/2025 9:07 AM EDT [facility] CH Rem 2.0 Transferrin 246 203 - 362 mg/dL 01/05/2025 9:07 AM EDT [facility] CH Rem 2.0 TIBC 344 269 - 535 ug/dL 01/05/2025 9:07 AM EDT [facility] CH Rem 2.0 TRANSFERRIN SAT 27 15 - 50 % 9:07 AM EDT [facility] CH Rem 2.0 Blood 01/05/2025 8:27 AM EDT 01/05/2025 8:39 AM EDT [facility] - 01/05/2025 9:07 AM EDT 01/05 C1 Ritux - has hep panel Performed by [facility], [address] [place] [address] Chhaya Corbin MD LAB BLOOD ORDERABLES Final Re sult Performing Organization Address [facility] Co de Phone Number [facility] [address] [place] [address], UL CH Rem 2.0 Pathology Department [address] [place] [address] * Ferritin (01/05/2025 8:27 AM EDT) Ferritin 16.0 11.0 - 306.8 ng/mL 01/05/2025 9:17 AM EDT UL CH Rem 2.0 Blood 01/05/2025 8:27 AM EDT 01/05/2025 8:39 AM EDT [facility] - 01/05/2025 9:17 AM EDT 01/05 C1 Ritux - has hep panel Performed by [facility], [address] [place] [address] Chhaya Corbin MD LAB BLOOD ORDERABLES Final Re sult Performing Organization Address [facility] de Phone Number [facility] [address] [place] [address], [facility] CH Rem 2.0 Pathology Department [address] [place] [address] * CULTURE BLOOD (12/01/2024 12:03 PM EDT) Only the most recent of3 resultswithin the time period is included. Blood 12/01/2024 12:0 3 PM EDT 12/01/2024 2:02 PM EDT [facility] - 12/06/2024 4:02 PM EDT KEIKO [...] Locations R1: This test was performed at: [facility], Pathology Department, [address] [place] [address], [id number] , [place], us To Smallwood MD LAB BLOOD ORDERABLES Final R esult Performing Organization Address [facility]/ZIP Co de Phone Number [facility] [address] [place] [address], [place] * (ABNORMAL) PT/INR PROTHROMBIN TIME PTT (11/30/2024 10:46 PM EDT) PT 10.1(L) 10.2 - 12.9 Second 11/30/2024 11:28 PM EDT [facility] INR 0.8 11/30/2024 11:28 PM EDT [facility] Comment: Recommended INR range for Oral Anticoagulant Therapy : STANDARD: 2.0 - 3.0 HIGH: 3.0 - 4.5 NOTE: Recommended range will be different for patients with mechanical implants. PTT 33.1 26.6 - 35.9 Second 11/30/2024 11:27 PM EDT [facility] Comment:Heparin therapeutic range is 55-95 sec. When the PTT is> 95 sec, if on heparin, refer to heparin protocol. If not on heparin, recommend appropriate workup. Blood 11/30/2024 10:4 6 PM EDT 11/30/2024 11:04 PM EDT [facility] - 11/30/2024 11:28 PM EDT pt has two charts, plz merge labs Performed by [facility], [address] [place] [address], [place] [address] us Timi Morley MD LAB BLOOD ORDERABLES F inal Result Performing Organization Address [facility]/ZIP Co de Phone Number [facility] [address] [place] [address], [facility] Heme [facility] UA Pathology Department [address] [place] [address] * (ABNORMAL) CBC With Differential (11/30/2024 10:46 PM EDT) [facility] WBC 7.9 4.0 - 10.8 x10(3)/ul 11/30/2024 11:41 PM EDT [facility] SS RBC 3.92 3.77 - 5.16 x10(6)/ul 11/30/2024 11:41 PM EDT [facility] SS HGB 12.4 12.0 - 16.0 Gram/dL 11/30/2024 11:41 PM EDT [facility] SS Hematocrit 34.8(L) 35.0 - 45.0 % 11/30/2024 11:41 PM EDT [facility] SS MCV 88.8 79.4 - 94.8 fL 11/30/2024 11:41 PM EDT [facility] SS MCH 31.8 25.6 - 32.2 pg 11/30/2024 11:41 PM EDT [facility] SS MCHC 35.7 32.3 - 36.5 Gram/dL 11/30/2024 11:41 PM EDT [facility] SS RDW 14.4 11.0 - 15.5 % 11/30/2024 11:41 PM EDT [facility] SS Platelets 16(A) 140 - 420 x10(3)/ul 11/30/2024 11:41 PM EDT [facility] SS Comment:Critical Result PLT: 16 Called to and read back by: ELZBIETA BEST at: 11/30/2024 23:41:42 by: MPV 9.4 8.7 - 12.0 fL 11/30/2024 11:41 PM EDT [facility] SS SLIDE REVIEW SCAN 11/30/2024 11:39 PM EDT [facility] Remisol 2.0 SS Blood 11/30/2024 10:4 6 PM EDT 11/30/2024 11:04 PM EDT [facility] - 11/30/2024 11:41 PM EDT pt has two charts, plz merge labs, PLT 16 Performed by [facility], [address] [facility], [place] [address] us Timi Morley MD LAB BLOOD ORDERABLES F inal Result [facility] [address] [place] [address], [place] [facility] SS Pathology Department [address] [place] [address] [facility] Remisol 2.0 SS Pathology Department [address] [place] [address] * (ABNORMAL) Comprehensive metabolic panel (11/30/2024 10:46 PM EDT) Sodium 140 136 - 145 mmol/L 11/30/2024 11:29 PM EDT [facility] CH Remisol 2.0 SS Potassium 4.0 3.5 - 5.1 mmol/L 11/30/2024 11:29 PM EDT [facility] CH Remisol 2.0 SS Chloride 104 98 - 110 mmol/L 11/30/2024 11:29 PM EDT [facility] CH Remisol 2.0 SS CO2 30 21 - 31 mmol/L 11/30/2024 11:29 PM EDT [facility] CH Remisol 2.0 SS Anion Gap 6.0 2.0 - 11.0 11/30/2024 11:29 PM EDT [facility] CH Remisol 2.0 SS Calcium 9.0 8.6 - 10.2 mg/dL 11/30/2024 11:29 PM EDT [facility] CH Remisol 2.0 SS Glucose 129(H) 74 - 109 mg/dL 11/30/2024 11:29 PM EDT [facility] CH Remisol 2.0 SS BUN 16 7 - 25 mg/dL 11/30/2024 11:29 PM EDT [facility] CH Remisol 2.0 SS Creatinine 0.80 0.60 - 1.20 mg/dL 11/30/2024 11:29 PM EDT [facility] CH Remisol 2.0 SS BUN/Creatinine Ratio 20.0 6.0 - 22.0 11/30/2024 11:29 PM EDT [facility] CH Remisol 2.0 SS Albumin 3.8 3.5 - 5.2 Gram/dL 11/30/2024 11:29 PM EDT [facility] Remisol 2.0 SS Total Protein 7.3 6.4 - 8.9 Gram/dL 11/30/2024 11:29 PM EDT [facility] Remisol 2.0 SS A/G Ratio 1.1 1.0 - 1.7 11/30/2024 11:29 PM EDT [facility] Remisol 2.0 SS Alkaline Phosphatase 68 34 - 104 Units/Lite r 11/30/2024 11:29 PM EDT [facility] Remisol 2.0 SS ALT (SGPT) 24 <=24 Units/Lite r 11/30/2024 11:29 PM EDT [facility] Remisol 2.0 SS AST 27 13 - 39 Units/Lite r 11/30/2024 11:29 PM EDT [facility] Remisol 2.0 SS Total Bilirubin 0.4 0.3 - 1.0 mg/dL 11/30/2024 11:29 PM EDT [facility] Remisol 2.0 SS Globulin, Total 3.5 2.0 - 3.5 Gram/dL 11/30/2024 11:29 PM EDT [facility] Remisol 2.0 SS EGFR 98 >=60 mL/min/1.7 3m2 11/30/2024 11:29 PM EDT [facility] Remisol 2.0 SS Comment:eGFR calculation per formed using the CKD-EPI 2020 equation (race variable excluded) Blood 11/30/2024 10:4 6 PM EDT 11/30/2024 11:04 PM EDT [facility] - 11/30/2024 11:29 PM EDT pt has two charts, plz merge labs Performed by [facility], [address] [facility], [place] [address] us Timi Morley MD LAB BLOOD ORDERABLES F inal Result [facility] [address] [place] [address], [facility] Remisol 2.0 SS Pathology Department [address] [place] [address] from Last 3 Months Insurance [employer]VANTAGE Care Teams Press Maintainer Relationship Specialty Start Date End Date Farida Daugherty Dr. PCP - General 11/12/24 Harley Faulkner MD [address] [place] [phone] Family Medicine 03/08/20
--- OUTSIDE RECORDS SUMMARY | 2025-02-09 17:50 | XMS_ITS | Clinical Summary ---
Author Organization [facility] Address [address] [place], [place] [address] Care Team Providers Care Facing Slitter Name Role Phone None, Physician Primary Care [...] The patient's chart is closed with [facility] as of 07/22/2018. [facility] Dr Payton [...] 137 - 145 mmol/L 06/12/2017 7:19 PM [facility] Potassium 4.1 3.5 - 5.1 mmol/L 06/12/2017 7:19 PM [facility] Chloride 104 98 - 107 mmol/L 06/12/2017 7:19 PM [facility] Carbon Dioxide 27 22 - 30 mmol/L 06/12/2017 7:19 PM [facility] Glucose 91 74 - 106 mg/dL 06/12/2017 7:19 PM [facility] Blood Urea Nitrogen (BUN) 14 7 - 20 mg/dL 06/12/2017 7:19 PM [facility] Creatinine-Blood 0.7 0.7 - 1.5 mg/dL 06/12/2017 7:19 PM [facility] BUN/Creatinine Ratio 20.0 RATIO 06/12/2017 7:19 PM [facility] Total Protein 6.9 6.3 - 8.2 g/dL 06/12/2017 7:19 PM [facility] Albumin 3.6 3.5 - 5.0 g/dL 06/12/2017 7:19 PM [facility] Globulin 3.3 1.5 - 4.5 g/dL 06/12/2017 7:19 PM [facility] Albumin/Globulin Ratio 1.1 1.1 - 2.5 RATIO 06/12/2017 7:19 PM [facility] Calcium 8.9 8.4 - 10.2 mg/dL 06/12/2017 7:19 PM [facility] Total Bilirubin 0.2 0.2 - 1.3 mg/dL 06/12/2017 7:19 PM [facility] AST/SGOT 28 15 - 46 U/L 06/12/2017 7:19 PM [facility] ALT/SGPT 43 13 - 69 U/L 06/12/2017 7:19 PM [facility] Alkaline Phosphatase 59 38 - 126 U/L 06/12/2017 7:19 PM [facility] Estimated GFR >60 >60 /1.73 m2 06/12/2017 7:19 PM [facility] Comment: Result only valid for patients age 18 to 70 yrs. Body Mass not taken into account. Multiply by 1.212 if . Results provided are valid only for patients who are 18 to 70 years of age. Results do not take into account body mass. Plasma BLOOD SPECIMEN FROM PATIENT / Unknown 06/12/2017 6:51 PM EST 06/12/2017 7:07 PM EST us Harley Ordoñez SHOE FITTER LAB BLOOD ORDERABLES Final R esult [facility] [address] [place] [address] * Hemoglobin A1C (03/15/2017 7:20 AM EDT) Hemoglobin A1C 5.3 4.3 - 5.7 % 03/15/2017 11:40 AM EDT [facility] ([id number]) Comment: Patients with conditions that shorten erythrocyte survival, such as recovery from acute blood loss, hemoltic anemia, kidney disease, or the presence of unstable hemoglobulins like HbSS, HbCC, and HbSC may yield falsely decreased HbA1c test results. Iron deficiency may yield falsely increased HbA1c test results. Estimated Average Glucose 105 mg/dL 03/15/2017 11:40 AM EDT [facility] ([id number]) Whole Blood BLOOD SPECIMEN FROM PATIENT / Unknown 03/15/2017 7:20 AM EDT 03/15/2017 7:46 AM EDT us Jarrod Francois MD LAB BLOOD ORDERABLES Final Result [facility] ([id number]) [address] [place] [address] * Pap Smear (09/29/2016 10:48 AM EDT) Pathology SPECIMEN FROM UTERINE CERVIX / Unknown 09/29/2016 10:48 AM EDT 09/29/2016 10:48 AM EDT Narrative [facility] ([facility]) - 10/06/2016 10:22 AM EDT [facility] [address] [place] [address] * Clinician: Patient Name: Accession Number: [id number] MATHISDIDI SHELLEY [id number] [employer] - Collected: BUSHRA : 1990 09/29/[address] [place] [address] Sex: F Received: [address] Chart #: 09/29/2016 [place] [address]- Reported: 10/06/2016 GYNECOLOGIC CYTOLOGY REPORT Final Report DIAGNOSIS: NEGATIVE (NO EVIDENCE OF INTRAEPITHELIAL LESION OR MALIGNANCY) ADEQUACY DESCRIPTION SCANT CELLULARITY SPECIMEN ADEQUACY: SATISFACTORY FOR INTERPRETATION: NO ENDOCERVICAL CELLS PRESENT - PATIENT SPECIMEN SOURCE: THIN PREP CERVICAL/ENDOCERVICAL MENSTRUAL STATUS: LMP: 06/02/2016 : Y Comment: Last Pap 7 years ago CPT Codes: (Tech) - 08004, x1 AUTO DESIGN CHECKER: DANA AC QC REVIEW : RACHANA LARSON(ASCP) <Sign Out Dr. Signature> SIGNED OUT BY: RACHANA LARSON(ASCP) PRIOR PATIENT HISTORY: Pap smear testing is subject to false negative and false positive results. This result should be interpreted in conjunction with clinical history; follow up of unexplained clinical findings and new developments is recommended to minimize false-negative results ThinPrep specimens have been analyzed by the ThinPrep Imaging System ([employer]), an automated imaging and review system. Drew Lara M.D. - Management Technician Teresa Faulkner M.D. - Director of Cytopathology us Lyubov Mathis SHOE FITTER PATHOLOGY/CYTOLOGY ORDERA BLES Final Result [facility] ([facility]) [address] [place] [address] from Last 3 Months or [...] 8:46 AM 03/09/2017 4:25 PM Care Teams Facing Slitter Relationship Specialty Start Date End Date None, Physician PCP - General 08/18/16
--- OUTSIDE RECORDS SUMMARY | 2025-02-09 17:50 | XMS_ITS | Encounter Summary ---
Author Organization [facility] Address [address] [place] [address] Care Team Providers Care Accounts Clerk Name Role Phone Beronica Spencer APRN Primary Care Provider [phone] Encounter Details Date Type Department Care Team ([facility] Contact Info) Description 11/29/2024 Telephone [facility] [address] [place] [address] Sotero Hoffman MD [address] [place] [address] Social History Tobacco Use Types Packs/Day Years [...] Date Recorded PHQ-2 Total Score 0 10/29/2022 [facility] ional [facility] - Occupational Stress [...] on filedocumented in this encounter Care Teams Accounts Clerk Relationship Specialty Start Date End Date Beronica Spencer APRN [address] [place], [place] [phone] PCP - General Nurse Practitioner-Family 08/20/20 documented as of this encounter
--- OUTSIDE RECORDS SUMMARY | 2025-02-09 17:50 | XMS_ITS | Clinical Summary ---
Author Organization [employer] ([place], [place], [place], [place]) Address [address] [place] [address] Care Team Providers Care Merchandise Shopper Name Role Phone Beronica Spencer Primary Care Provider [phone] Allergies Active Allergy Reactions Criticality Noted Date [...] patient's age to complete this topic Insurance [facility] Member Subscriber Plan / Payer (Ef fective 2023-Present) Name:Fely Lara Relation to Subscriber:Self Name:Fely Lara Payer ID:Not on file Group ID:[id number] Type:Not on file Address: [facility] [id number] [place] [id number] Care Teams Merchandise Shopper Relationship Specialty Start Date End Date Beronica Spencer [address] [place] [address] PCP - General 05/09/24
--- OUTSIDE RECORDS SUMMARY | 2025-02-09 17:51 | XMS_ITS | Clinical Summary ---
Author Organization [facility] Address [address] [place] [address] Phone Care Team Providers Care Door Patcher Name Role Phone SpencerElidaBeronica IGNACIO Primary Care Provider [phone] Allergies Active Allergy Reactions Criticality Noted Date Comments Gadolinium-Containing Contrast Media Hives 08/20/2020 Hydromorphone Itching Medium 06/12/2017 SOA, Itching, anxiety Iodine Hives 11/23/2018 Sertraline Anaphylaxis,Other (See Comments),Shortness Of Breath High 09/09/2016 Shellfish Containing Products Anaphylaxis High 06/26/2020 [place] Pollen Other (See Comments) Medium 10/10/2024 eyes [...] Active fluticasone propionate (FLONASE) 50 mcg/actuation Nasl [place], SuspensionIndic ations:Middle ear effusion, bilateral SHAKE LIQUID [...] Encounters Date Type Department Care Team Description 01/15/2025 Patient Outreach [facility] [address] [place] [address] Beronica Spencer APRN Central Patient Navigator Outreach (AWV) 11/29/[address] [address] Sotero Rosales MD 11/15/2024 3:10 PM EDT - 11/15/2024 3:50 PM EDT Emergency [facility] Emergency [address] [place] [address] Naresh Byrnes MD Injury of vagina, initial encounter (Primary Dx) Discharge Disposition: Home or Self Care 11/15/2024 Travel 11/10/[address] [address] Sotero Rosales MD from Last 3 Months Immunizations Immunization [...] Date Recorded PHQ-2 Total Score 0 10/29/2022 [facility] - Occupational Stress Questionnaire Answer Date Recorded [...] Procedure Name Priority Date/Time Associated Diagnosis Comments ILLUSTRATOR SET CYTOLOGY REQUEST (PAP ONLY) Routine 08/12/2021 3:21 PM EST Well woman exam with routine gynecological exam from Last 3 Months or Most Recently Relevant to Health Maintenance Results * ILLUSTRATOR SET CYTOLOGY REQUEST (PAP ONLY) (08/12/2021 3:21 PM EST) CASE REPORT Gynecologic Cytology Report Case: [id number] Authorizing Provider: Davion Alex MD Collected: 08/12/2021 1521 Ordering Location: [facility] Received: 08/12/2021 1521 First Screen: Lobo Michel CT Specimen: LIQUID-BASED PAP - CERVICAL/ENDOCERV ICAL, Cervix, Endocervical 08/13/2021 3:28 PM EST [facility] PAP FINAL DIAGNOSIS Negative for intraepithelial lesion or malignancy 08/13/2021 3:28 PM EST [facility] at 1528 EST MICROSCOPIC DESCRIPTION Microscopic examination is performed and the findings corroborate the diagnosis. 08/13/2021 3:28 PM EST [facility] PAP SMEAR ADEQUACY Satisfactory for evaluation 08/13/2021 3:28 PM EST [facility] ENDOCERVICAL T-ZONE Transformation zone present 08/13/2021 3:28 PM EST [facility] EMBEDDED IMAGES 3:28 PM EST [facility] PAP DISCLAIMER The Pap Smear is a screening test that aids in the detection of cervical cancer and cancer precursors. Both false positive and false negative results can occur. The test should be used at regular intervals, and positive results should be confirmed before definitive therapy. Processed using the ThinPrep Manager Portable Automated cytology screening device ([employer]). 08/13/2021 3:28 PM EST [facility] Thin Prep ENDOCERVICAL STRUCTURE / Unknown 08/12/2021 3:21 PM EST 08/12/2021 3:21 PM EST us Davion Alex MD CYTOLOGY ORDERABLES Final Re sult [facility] [address] [place] [address] from Last 3 Months or Most Recently Relevant to Health Maintenance Insurance [employer] MEDICARE PPO [place] [id number] AUTO ACCIDENT GENERIC on file [employer] MEDICARE PPO [place] [id number] Advance Directives For more information, please contact: [phone] Documents on File Type Date Recorded Patient Loan Counselor Expl anation ADVANCE DIRECTIVE 08/26/2021 10:24 AM LW 0 09/05/2017 Care Teams Door Patcher Relationship Specialty Start Date End Date Beronica Spencer [place] [address] [place] [id number] PCP - General Nurse Practitioner-Family 08/20/20
--- OUTSIDE RECORDS SUMMARY | 2025-02-09 17:51 | XMS_ITS | Encounter Summary ---
Author Organization [place] [address] Care Team Providers Care Raisin Washer Name Role Phone Johanna Beronica CULINARY ASSISTANT Primary Care Provider [phone] Reason for Visit * Reason Onset Date Comments Central Patient Navigator Outreach 01/15/2025 AWV Encounter Details Date Type Department Care Team (Late st Contact Info) Description 01/15/2025 Patient Outreach [facility] [address] [place], [place] [id number] Beronica Spencer APRN [address] [place] [address] Central Patient Navigator Outreach (AWV) Social History Tobacco Use Types Packs/Day Years [...] Date Recorded PHQ-2 Total Score 0 10/29/2022 [facility] [place] [facility] - Occupational Stress [...] documented in this encounter Progress Notes * Cassy Lara - 01/15/2025 3:54 PM EDT Patient Outreach: Care Gap Outreach Attempt Count: 1st Care Gaps Addressed environmental services worker: Annual Wellness Visit, Medicare Questionnaire, and Cervical Cancer Screening Outcome:Annual Wellness Visit Scheduled 01/25/2025 and Cervical Cancer screening scheduled 01/25/2025. Pt stated she will complete questionnaire at appt Call back number: [phone] documented in this encounter Plan of Treatment [...] on filedocumented in this encounter Care Teams Raisin Washer Relationship Specialty Start Date End Date Beronica Spencer APRN [address] [place] [address] PCP - General Nurse Practitioner-Family 08/20/20 documented as of this encounter
[2025-02-09 18:43] LABS: Hematocrit 41.3 % (37.0-47.0); Hemoglobin 13.9 g/dL (12.2-16.2); Mean Corpuscular HGB Conc 33.7 g/dL (31.8-35.4); Mean Corpuscular Hemoglobin 31.1 pg (27.0-31.2); Mean Corpuscular Volume 92.4 fl (81-99); Nucleated Red Blood Cells % 0 %; Platelet Count 184 K/mm3 (142-424); Red Blood Count 4.47 M/mm3 (4.20-5.40); Red Cell Distribution Width-SD 43.9 fL; White Blood Count 14.5 K/mm3 (4.8-10.8)
[2025-02-09 20:26] LABS: RBC Morphology Normal; Total Cells Counted 100
== END 2025-02-09 23:59 | disposition home or self-care (01) ==
LOC: LAB 17:49
DX: D69.3 Immune thrombocytopenic purpura (principal)
CPT/HCPCS: 85007; 85027

== ENCOUNTER 2025-02-13 14:14 | Outpatient (CLI) | payer MEDICARE, SELFPAY ==
--- OUTSIDE RECORDS SUMMARY | 2023-09-14 10:15 | XMS_ITS | Continuity of Care Document ---
Author Organization [facility] Address [address] [place] [address] Phone Care Team Providers Care Therapy Teacher Name Role Phone Lucian COOLING PAN TENDER, Mara Unavailable Unavailable Procedures Procedure Date TELEHEALTH OFFICE/OUTPATIENT VISIT EST A Advance Directives Directive Yes / No Effective Date File Name No Information Encounters Encounter Description Practice Location Reason(s) For Visit Diagnoses Date Provider [facility], [address] [facility], [place], [address], [place] tel:[phone] 2 [facility] [place] No Information 2023 Lucian Terry. [address] [place], [place], [id number], [place]. tel:[phone] Family History Family Member Type Diagnosis Age At Onset No Information Payers Payer name Insurance type Covered alliance party ID Authoriza tion(s) [facility]- Medicare [place] [id number] [facility]- Medicaid [place] Bcbs BL [id number] [facility]- Medicaid [place] Wrap Payer [id number] Social History Type Description Quantity Date Captured Comments Sex Female Smoking Status No Information Sexual Orientation Straight or heterosexual Gender Identity Female Chief Complaint And Reason For Visit No Information History Of Present Illness Encounter Date Complaint History Of Prese nt Illness No Information Instructions Date Instruction Additional Infor mation No Information Assessments Type Assessment Date No Information
[2025-02-13 19:52] LABS: Hematocrit 39.5 % (37.0-47.0); Hemoglobin 13.8 g/dL (12.2-16.2); Immature Granulocytes % 0.3 %; Mean Corpuscular HGB Conc 34.9 g/dL (31.8-35.4); Mean Corpuscular Hemoglobin 31.7 pg (27.0-31.2); Mean Corpuscular Volume 90.8 fl (81-99); Nucleated Red Blood Cells % 0 %; Red Blood Count 4.35 M/mm3 (4.20-5.40); Red Cell Distribution Width-SD 42.5 fL; White Blood Count 9.3 K/mm3 (4.8-10.8)
[2025-02-13 20:06] LABS: Platelet Count 49 K/mm3 (142-424)
--- OUTSIDE RECORDS SUMMARY | 2025-02-15 10:15 | XMS_ITS | Clinical Summary ---
Author Organization [facility] Address [address] [place], [place] [id number] Care Team Providers Care Paper Tester Name Role Phone None, Physician Primary Care [...] original. The patient's chart is closed with [facility] as of 07/22/2018. [facility] Dr Payton [...] 137 - 145 mmol/L 06/12/2017 7:19 PM [facility] Potassium 4.1 3.5 - 5.1 mmol/L 06/12/2017 7:19 PM [facility] Chloride 104 98 - 107 mmol/L 06/12/2017 7:19 PM [facility] Carbon Dioxide 27 22 - 30 mmol/L 06/12/2017 7:19 PM [facility] Glucose 91 74 - 106 mg/dL 06/12/2017 7:19 PM [facility] Blood Urea Nitrogen (BUN) 14 7 - 20 mg/dL 06/12/2017 7:19 PM [facility] Creatinine-Blood 0.7 0.7 - 1.5 mg/dL 06/12/2017 7:19 PM [facility] BUN/Creatinine Ratio 20.0 RATIO 06/12/2017 7:19 PM [facility] Total Protein 6.9 6.3 - 8.2 g/dL 06/12/2017 7:19 PM [facility] Albumin 3.6 3.5 - 5.0 g/dL 06/12/2017 7:19 PM [facility] Globulin 3.3 1.5 - 4.5 g/dL 06/12/2017 7:19 PM [facility] Albumin/Globulin Ratio 1.1 1.1 - 2.5 RATIO 06/12/2017 7:19 PM [facility] Calcium 8.9 8.4 - 10.2 mg/dL 06/12/2017 7:19 PM [facility] Total Bilirubin 0.2 0.2 - 1.3 mg/dL 06/12/2017 7:19 PM [facility] AST/SGOT 28 15 - 46 U/L 06/12/2017 7:19 PM [facility] ALT/SGPT 43 13 - 69 U/L 06/12/2017 7:19 PM [facility] Alkaline Phosphatase 59 38 - 126 U/L 06/12/2017 7:19 PM [facility] Estimated GFR >60 >60 /1.73 m2 06/12/2017 7:19 PM [facility] Comment: Result only valid for patients [...] 06/12/2017 7:07 PM EST us Harley Ordoñez DUPLICATING MACHINE MECHANIC LAB BLOOD ORDERABLES Final R esult [facility] [address] [place] [address] * Hemoglobin A1C (03/15/2017 7:20 AM EDT) Hemoglobin A1C 5.3 4.3 - 5.7 % 03/15/2017 11:40 AM EDT [facility] ([id number]) Comment: Patients with conditions that shorten erythrocyte survival, such as recovery from acute blood loss, hemoltic anemia, kidney disease, or the presence of unstable hemoglobulins like HbSS, HbCC, and HbSC may yield falsely decreased HbA1c test results. Iron deficiency may yield falsely increased HbA1c test results. Estimated Average Glucose 105 mg/dL 03/15/2017 11:40 AM EDT [facility] ([id number]) Whole Blood BLOOD SPECIMEN FROM PATIENT / Unknown 03/15/2017 7:20 AM EDT 03/15/2017 7:46 AM EDT us Jarrod Francois MD LAB BLOOD ORDERABLES Final Result [facility] ([id number]) [address] [place] [address] * Pap Smear (09/29/2016 10:48 AM EDT) Pathology SPECIMEN FROM UTERINE CERVIX / Unknown 09/29/2016 10:48 AM EDT 09/29/2016 10:48 AM EDT Narrative [facility] ([facility]) - 10/06/2016 10:22 AM EDT [facility] [address] [place] [address] * Clinician: Patient Name: Accession Number: [id number] MATHISDIDI SHELLEY [id number] [facility] [employer] - Collected: BUSHRA : 1990 09/29/[address] [place] [address] Sex: F Received: [address] Chart #: 09/29/2016 [place] [address]- Reported: 10/06/2016 GYNECOLOGIC CYTOLOGY REPORT Final Report DIAGNOSIS: NEGATIVE (NO EVIDENCE OF INTRAEPITHELIAL LESION OR MALIGNANCY) ADEQUACY DESCRIPTION SCANT CELLULARITY SPECIMEN ADEQUACY: SATISFACTORY FOR INTERPRETATION: NO ENDOCERVICAL CELLS PRESENT - PATIENT SPECIMEN SOURCE: THIN PREP CERVICAL/ENDOCERVICAL MENSTRUAL STATUS: LMP: 06/02/2016 : Y Comment: Last Pap 7 years ago CPT Codes: (Tech) - 35401, x1 [facility]: DANA AC QC REVIEW : RACHANA LARSON(ASCP) [...] been analyzed by the ThinPrep Imaging System ([employer]), an automated imaging and review system. Drew Lara M.D. - Electrician Yard Teresa Faulkner M.D. - Director of Cytopathology us Lyubov Mathis DUPLICATING MACHINE MECHANIC PATHOLOGY/CYTOLOGY ORDERA BLES Final Result [facility] ([facility] [address] [place] [address] from Last 3 Months or [...] 8:46 AM 03/09/2017 4:25 PM Care Teams Paper Tester Relationship Specialty Start Date End Date None, Physician PCP - General 08/18/16
--- OUTSIDE RECORDS SUMMARY | 2025-02-15 10:16 | XMS_ITS | Clinical Summary ---
Author Organization [employer] ([place], [place], [place], [place]) Address [address] [place] [address] Care Team Providers Care Equipment Maintenance Supervisor Name Role Phone Beronica Spencer Primary Care Provider [phone] Allergies Active Allergy Reactions Criticality Noted Date [...] Pap Smear 2009 COVID-19 VACCINE (2 - 2024-2 6 season) 2025 04/08/2021 Influenza Vaccine (#1) 2025 DTAP/TDAP/TD VACCINES (3 - T d or Tdap) 07/30/2030 07/30/2020, 01/01/2017 Pneumococcal Vaccine: 0-49 Years Aged Out 07/11/2018 No longer eligible b ased on patient's age to complete this topic Insurance [facility] Member Subscriber Plan / Payer (Ef fective 2023-Present) Name:Fely Lara Relation to Subscriber:Self Name:Fely Lara Payer ID:Not on file Group ID:[id number] Type:Not on file Address: [facility] [address] [place] [id number] Care Teams Equipment Maintenance Supervisor Relationship Specialty Start Date End Date Beronica Spencer [address] [place] [address] PCP - General 05/09/24
--- OUTSIDE RECORDS SUMMARY | 2025-02-15 10:16 | XMS_ITS | Referral Summary ---
Author Organization [employer] ([place], [place], [place], [place]) Address [address] [place] [address] Care Team Providers Care Manufacturing Controller Name Role Phone Beronica Spencer Primary Care Provider [phone] Allergies Active Allergy Reactions Criticality Noted Date [...] Plan of Treatment Not on file Insurance [facility] Care Teams Manufacturing Controller Relationship Specialty Start Date End Date Beronica Spencer [address] [place] [address] PCP - General 05/09/24
--- OUTSIDE RECORDS SUMMARY | 2025-02-15 10:16 | XMS_ITS | Clinical Summary ---
Author Organization [facility] [place] Address [address] [place] [address] Phone Care Team Providers Care Director Life Insurance Name Role Phone SpencerElidaBeronica IGNACIO Primary Care Provider [phone] Allergies Active Allergy Reactions Criticality Noted Date Comments Gadolinium-Containing Contrast Media Hives 08/20/2020 Hydromorphone Itching Medium 06/12/2017 SOA, Itching, anxiety Iodine Hives 11/23/2018 Sertraline Anaphylaxis,Other (See Comments),Shortness Of Breath High 09/09/2016 Shellfish Containing Products Anaphylaxis High 06/26/2020 [place] Pollen Other (See Comments) Medium 10/10/2024 eyes [...] Active fluticasone propionate (FLONASE) 50 mcg/actuation Nasl [place], SuspensionIndic ations:Middle ear effusion, bilateral SHAKE LIQUID [...] Department Care Team Description 01/15/2025 Patient Outreach [facility] [address] [place] [address] Beronica Spencer APRN Central Patient Navigator Outreach (AWV) 11/29/2024 Telephone [place] [phone] Sotero Rosales MD 11/15/2024 3:10 PM EDT - 11/15/2024 3:50 PM EDT Emergency [facility] Emergency [address] [place] [address] Naresh Byrnes MD Injury of vagina, initial encounter (Primary Dx) Discharge Disposition: Home or Self Care 11/15/2024 Travel from Last 3 Months Immunizations Immunization Administration [...] Date Recorded PHQ-2 Total Score 0 10/29/2022 [facility] - Occupational Stress Questionnaire Answer Date [...] Procedure Name Priority Date/Time Associated Diagnosis Comments MID LEVEL JAVA DEVELOPER CYTOLOGY REQUEST (PAP ONLY) Routine 08/12/2021 3:21 PM EST Well woman exam with routine gynecological exam from Last 3 Months or Most Recently Relevant to Health Maintenance Results * MID LEVEL JAVA DEVELOPER CYTOLOGY REQUEST (PAP ONLY) (08/12/2021 3:21 PM EST) CASE REPORT Gynecologic Cytology Report Case: [id number] Authorizing Provider: Davion Alex MD Collected: 08/12/2021 1521 [facility]ing Location: [facility] [id number] Received: 08/12/2021 1521 First Screen: Lobo Michel CT Specimen: LIQUID-BASED PAP - CERVICAL/ENDOCERV ICAL, Cervix, Endocervical 08/13/2021 3:28 PM EST [facility] PAP FINAL DIAGNOSIS Negative for intraepithelial lesion or malignancy 08/13/2021 3:28 PM EST [facility] at 1528 EST MICROSCOPIC DESCRIPTION Microscopic examination is performed and the findings corroborate the diagnosis. 08/13/2021 3:28 PM EST [facility] PAP SMEAR ADEQUACY Satisfactory for evaluation 08/13/2021 3:28 PM EST [facility] ENDOCERVICAL T-ZONE Transformation zone present 08/13/2021 3:28 PM EST [facility] EMBEDDED IMAGES 3:28 PM EST [facility] PAP DISCLAIMER The Pap Smear is a screening test that aids in the detection of cervical cancer and cancer precursors. Both false positive and false negative results can occur. The test should be used at regular intervals, and positive results should be confirmed before definitive therapy. Processed using the ThinPrep Hand [employer] Automated cytology screening device ([employer]). 08/13/2021 3:28 PM EST [facility] Thin Prep ENDOCERVICAL STRUCTURE / Unknown 08/12/2021 3:21 PM EST 08/12/2021 3:21 PM EST Davion Alex MD CYTOLOGY ORDERABLES Final Re sult [facility] [address] [place] [phone] from Last 3 Months or Most Recently Relevant to Health Maintenance [place] [address] MEDICARE PPO MR Member Subscriber Plan / Payer (Ef fective 2023-Present) Name:Fely Lara Relation to Subscriber:Self Name:Fely Lara Payer ID:[id number] (NAIC) Group ID:[id number] Type:Not on file Address: [place] [id number] Member Subscriber Plan / Payer ( fective 2023-Present) Name:Fely Lara Relation to Subscriber:Self Name:Fely Lara Payer ID:[id number] (NAIC) Group ID:[id number] Type:Not on file Address: [place] [id number] AUTO ACCIDENT GENERIC on file [employer] MEDICARE PPO MR Member Subscriber Plan / Payer (Ef fective 2023-Present) Name:Fely Lara Relation to Subscriber:Self Name:Fely Lara Payer ID:[id number] (NAIC) Group ID:[id number] Type:Not on file Address: [place] [id number] Advance Directives For more information, please contact: [phone] Documents on File Type Date Recorded Patient Die Cast Supervisor Expl anation ADVANCE DIRECTIVE 08/26/2021 10:24 AM LW 0 09/05/2017 Care Teams Director Life Insurance Relationship Specialty Start Date End Date Beronica Spencer APRN [address] [place] [phone] PCP - General Nurse Practitioner-Family 08/20/20
--- OUTSIDE RECORDS SUMMARY | 2025-02-15 10:16 | XMS_ITS | Clinical Summary ---
Author Organization [facility] Address [address] [facility] [address] [place] [address] Care Team Providers Care Medical Certification Specialist Name Role Phone Harley Faulkner MD Unavailable Farida Daugherty Dr Primary Care Provider Unavailabl e Encounters * This document contains information received from the source organization and may not represent a complete record from that organization. Date Type Department Care Team Description 12/04/2024 Telephone [facility] Administrative Services [address] [facility] [address] [place] [address] Andie Hart, ERI Hospital Follow Up 11/30/2024 Orders Only [facility] - Pulmonology [address] [facility] [address] [place], [place] [id number] Belem Springer, ERI Pulmonary fibrosis, not otherwise specified (Primary Dx); History of histoplasmosis 11/30/2024 Telephone [facility] - Pulmonology [address] [facility] [address] [place] [address] Citlaly Douglas, GTA Appt with Dr. Moseley 11/21/2024 Telephone [facility] Administrative Services [address] [facility] [address] [place], [place] [address] Andie Hart RN Hospital Follow Up from [...] Care Team (Late st Contact Info) Description 04/04/2025 1:45 PM EDT Office Visit [facility] [address] [place] [address] Yessenia Nicole MD [address] [facility] [address] [place] [address] Health Maintenance Due Date Last [...] of 2 - PCV) 12/26/2007 HPV/Cotest 2018 Depression Risk Screening 06/14/2024 SDOH Screening 06/14/2024 Cervical Cancer Screening 08/12/2024 Pap Smear 08/12/2024 08/12/2021, 09/29/2016 COVID-19 Vaccine ( season) 2025 04/08/2021, 12/19/2020, 11/28/2020 Influenza Vaccine (#1) 2025 , 04/12/2020, 04/12/2020, [...] from Last 3 Months Results * (ABNORMAL) [facility] CBC W/ AUTO DIFF (01/26/2025 9:39 AM EDT) Only the most recent of5 resultswithin the time period is included. WBC 7.4 4.0 - 10.8 x10(3)/ul 01/26/2025 9:53 AM EDT [facility] HE Rem 2.0 RBC 4.07 3.77 - 5.16 x10(6)/ul 01/26/2025 9:53 AM EDT [facility] Rem 2.0 HGB 12.8 12.0 - 16.0 Gram/dL 01/26/2025 9:53 AM EDT [facility] Rem 2.0 Hematocrit 36.8 35.0 - 45.0 % 01/26/2025 9:53 AM EDT [facility] Rem 2.0 MCV 90.6 79.4 - 94.8 fL 01/26/2025 9:53 AM EDT [facility] Rem 2.0 MCH 31.5 25.6 - 32.2 pg 01/26/2025 9:53 AM EDT [facility] Rem 2.0 MCHC 34.7 32.3 - 36.5 Gram/dL 01/26/2025 9:53 AM EDT [facility] Rem 2.0 RDW 13.9 11.0 - 15.5 % 01/26/2025 9:53 AM EDT [facility] Rem 2.0 Platelets 51(L) 140 - 420 x10(3)/ul 01/26/2025 9:53 AM EDT [facility] Rem 2.0 MPV 8.3(L) 8.7 - 12.0 fL 01/26/2025 9:53 AM EDT [facility] Rem 2.0 SLIDE REVIEW NONE 01/26/2025 9:53 AM EDT [facility] HE Rem 2.0 Blood 01/26/2025 9:39 AM EDT 01/26/2025 9:44 AM EDT [facility] LAB - 01/26/2025 9:53 AM EDT Performed by [facility], [address] [place] [address] us Chhaya Corbin MD LAB BLOOD ORDERABLES Final Re sult [facility] [address] [place] [address], [facility] HE Rem 2.0 Pathology Department [address] [place] [address] * (ABNORMAL) AUTODIFF (01/26/2025 9:39 AM EDT) Only the most recent of6 resultswithin the time period is included. NEUT % 75.9(H) 34.0 - 75.0 % 01/26/2025 9:53 AM EDT [facility] Rem 2.0 LYMPH % 16.0(L) 17.0 - 53.0 % 01/26/2025 9:53 AM EDT [facility] HE Rem 2.0 MONO % 6.9 2.0 [...] 9:39 AM EDT 01/26/2025 9:44 AM EDT [facility] LAB - 01/26/2025 9:53 AM EDT Ordered by Discern Expert. [email or web address] Performed by [facility], [address] [place] [address] us Chhaya Corbin MD LAB BLOOD ORDERABLES Final Re sult [facility] [address] [place] [address], [facility] HE Rem 2.0 Pathology Department [address] [place] [address] * (ABNORMAL) RBC MORPHOLOGY (01/19/2025 10:53 AM [...] 3 AM EDT 01/19/2025 10:54 AM EDT [facility] LAB - 01/19/2025 11:50 AM EDT 01/19 tx Ordered by Discern Expert. Performed by [facility], [address] [place] [address] us Chhaya Corbin MD LAB BLOOD ORDERABLES Final Re sult Performing Organization Address City/[facility]/ZIP Co de Phone Number [facility] [address] [place] [address], [facility] HE Rem 2.0 Pathology Department [address] [place] [address] * IRON, TIBC AND FERRITIN PANEL (01/05/2025 [...] 8:27 AM EDT 01/05/2025 8:39 AM EDT [facility] LAB - 01/05/2025 9:07 AM EDT 01/05 C1 Ritux - has hep panel Performed by [facility], [address] [place] [address] us Chhaya Corbin MD LAB BLOOD ORDERABLES Final Re sult Performing Organization Address City/[facility]/ZIP Co de Phone Number [facility] [address] [place] [address], [place] [facility] CH Rem 2.0 Pathology Department [address] [place] [id number] * Ferritin (01/05/2025 8:27 AM EDT) Ferritin 16.0 11.0 - 306.8 ng/mL 01/05/2025 9:17 AM EDT [facility] Rem 2.0 Blood 01/05/2025 8:27 AM EDT 01/05/2025 8:39 AM EDT [facility] LAB - 01/05/2025 9:17 AM EDT 01/05 C1 Ritux - has hep panel Performed by [facility], [address] [place] [address] us Chhaya Corbin MD LAB BLOOD ORDERABLES [place] [address], [facility] Rem 2.0 Pathology Department [address] [place] [address] * CULTURE BLOOD (12/01/2024 12:03 PM EDT) Only the most recent of3 resultswithin the time period is included. Blood 12/01/2024 12:0 3 PM EDT 12/01/2024 2:02 PM EDT [facility] LAB - 12/06/2024 4:02 PM EDT [...] Locations R1: This test was performed at: [facility], Pathology Department, [address] [place] [address], [id number] , [place], To Smallwood MD LAB BLOOD ORDERABLES Final R esult Performing Organization Address [facility] Co de Phone Number [facility] [address] [id number], [place] * (ABNORMAL) PT/INR PROTHROMBIN TIME PTT (11/30/2024 10:46 PM EDT) PT 10.1(L) 10.2 - 12.9 Second 11/30/2024 11:28 PM EDT [facility] Heme Coag UA INR 0.8 11/30/2024 11:28 PM EDT [facility] Heme Coag UA Comment: Recommended INR range for Oral Anticoagulant Therapy : STANDARD: 2.0 - 3.0 HIGH: 3.0 - 4.5 NOTE: Recommended range will be different for patients with mechanical implants. PTT 33.1 26.6 - 35.9 Second 11/30/2024 11:27 PM EDT [facility] Heme Coag UA Comment:Heparin therapeutic range is 55-95 sec. When the PTT is> 95 sec, if on heparin, refer to heparin protocol. If not on heparin, recommend appropriate workup. Blood 11/30/2024 10:4 6 PM EDT 11/30/2024 11:04 PM EDT [facility] LAB - 11/30/2024 11:28 PM EDT pt has two charts, plz merge labs Performed by [facility], [address] [place] [id number] Timi Morley MD LAB BLOOD ORDERABLES F inal Result Performing Organization Address [facility]/ZIP Co de Phone Number [facility] [address] [place] [address], [place] [facility] Heme Coag UA Pathology Department [address] [place] [address] * (ABNORMAL) CBC With Differential (11/30/2024 10:46 PM EDT) WBC 7.9 4.0 - 10.8 x10(3)/ul 11/30/2024 11:41 PM EDT [facility] Heme Coag UA SS RBC 3.92 3.77 [...] SLIDE REVIEW SCAN 11/30/2024 11:39 PM EDT [facility] CH Remisol 2.0 SS Blood 11/30/2024 10:4 6 PM EDT 11/30/2024 11:04 PM EDT [facility] LAB - 11/30/2024 11:41 PM EDT pt has two charts, plz merge labs, PLT [address] [place] [address] us Timi Morley MD LAB BLOOD ORDERABLES F inal Result [facility] [address] [place] [address], [facility] Heme Coag UA SS Pathology Department [address] [place] [address] [facility] CH Remisol 2.0 SS Pathology Department [address] [place] [address] * (ABNORMAL) Comprehensive metabolic panel (11/30/2024 10:46 PM EDT) Sodium 140 136 - 145 mmol/L 11/30/2024 11:29 PM EDT [facility] CH Remisol 2.0 SS Potassium 4.0 3.5 - 5.1 mmol/L 11/30/2024 11:29 PM EDT [facility] CH Remisol 2.0 SS Chloride 104 98 - 110 mmol/L 11/30/2024 11:29 PM EDT [facility] CH Remisol 2.0 SS CO2 30 21 - 31 mmol/L 11/30/2024 11:29 PM EDT [facility] CH Remisol 2.0 SS Anion Gap 6.0 2.0 - 11.0 11/30/2024 11:29 PM EDT [facility] CH Remisol 2.0 SS Calcium 9.0 8.6 - 10.2 mg/dL 11/30/2024 11:29 PM EDT [facility] CH Remisol 2.0 SS Glucose 129(H) 74 - 109 mg/dL 11/30/2024 11:29 PM EDT [facility] CH Remisol 2.0 SS BUN 16 7 - 25 mg/dL 11/30/2024 11:29 PM EDT [facility] CH Remisol 2.0 SS Creatinine 0.80 0.60 - 1.20 mg/dL 11/30/2024 11:29 PM EDT [facility] CH Remisol 2.0 SS BUN/Creatinine Ratio 20.0 6.0 - 22.0 11/30/2024 11:29 PM EDT [facility] CH Remisol 2.0 SS Albumin 3.8 3.5 - 5.2 Gram/dL 11/30/2024 11:29 PM EDT L CH Remisol 2.0 SS Total Protein 7.3 6.4 - 8.9 Gram/dL 11/30/2024 11:29 PM EDT [facility] CH Remisol 2.0 SS A/G Ratio 1.1 [...] 6 PM EDT 11/30/2024 11:04 PM EDT [facility] LAB - 11/30/2024 11:29 PM EDT pt has two charts, plz merge labs Performed by [facility], [address] [place] [address] us Timi Morley MD LAB BLOOD ORDERABLES F inal Result Performing Organization Address City/State/[facility] Co de Phone Number [facility] [address] [place] [address], [facility] CH Remisol 2.0 SS Pathology Department [address] [place] [address] from Last 3 Months Insurance [employer] Care Teams Medical Certification Specialist Relationship Specialty Start Date End Date Farida Daugherty Dr. PCP - General 11/12/24 Harley Faulkner MD [address] [place] [id number] Family Medicine 03/08/20
--- OUTSIDE RECORDS SUMMARY | 2025-02-15 10:16 | XMS_ITS | Encounter Summary ---
Author Organization [facility] Address [address] [place] [address] Care Team Providers Care Benchroom Shop Optician Name Role Phone Beronica Spencer APRN Primary Care Provider [phone] Encounter Details Date Type Department Care Team ([facility] Contact Info) Description 11/29/2024 Telephone [facility] [address] [place] [address] Sotero Hoffman MD [address] [place] [address] Social History Tobacco Use Types Packs/Day Years [...] Date Recorded PHQ-2 Total Score 0 10/29/2022 [facility] [place] of Occupat ional Health - Occupational Stress [...] on filedocumented in this encounter Care Teams Benchroom Shop Optician Relationship Specialty Start Date End Date Beronica Spencer APRN [address] [place] [phone] PCP - General Nurse Practitioner-Family 08/20/20 documented as of this encounter
--- OUTSIDE RECORDS SUMMARY | 2025-02-15 10:16 | XMS_ITS | Encounter Summary ---
Author Organization [facility] Address [address] [place] [address] Care Team Providers Care Drift Miner Name Role Phone Beronica Spencer APRN Primary Care Provider [phone] Encounter Details Date Type Department Care Team ([facility] Contact Info) Description 11/10/2024 Telephone [facility] [address] [place] [address] Sotero Hoffman MD [address] [place] [address] Social History Tobacco Use Types Packs/Day Years [...] Date Recorded PHQ-2 Total Score 0 10/29/2022 [facility] [place] of Occupat ional Health - Occupational Stress [...] 2:27 PM EDT Kandi Philip RN * Wilkin Suicide Severity Rating Scale (Q shift for [...] Author No 10/29/2022 10:18 AM EDT Yvonne rGiffin MA documented in this encounter Miscellaneous Notes [...] on filedocumented in this encounter Care Teams Drift Miner Relationship Specialty Start Date End Date Beronica Sepncer APRN [address] [place] [phone] PCP - General Nurse Practitioner-Family 08/20/20 documented as of this encounter
--- OUTSIDE RECORDS SUMMARY | 2025-02-15 10:16 | XMS_ITS | Encounter Summary ---
Author Organization [facility] [place] [address] Care Team Providers Care Manager Utilization Management Name Role Phone Johanna Beronica PURCHASING EXPEDITOR Primary Care Provider [phone] Reason for Visit * Reason Onset Date Comments Central Patient Navigator Outreach 01/15/2025 AWV Encounter Details Date Type Department Care Team (Late st Contact Info) Description 01/15/2025 Patient Outreach [facility] [address] [place], [place] [id number] Beroniac Spencer APRN [address] [place] [address] Central Patient Navigator Outreach (AWV) Social History [...] Date Recorded PHQ-2 Total Score 0 10/29/2022 [facility] [place] of Occupat ional Health - Occupational Stress [...] Outreach Attempt Count: 1st Care Gaps Addressed occupational health technician: Annual Wellness Visit, Medicare Questionnaire, and Cervical Cancer Screening Outcome:Annual Wellness Visit Scheduled 01/25/2025 and Cervical Cancer screening scheduled 01/25/2025. Pt stated she will complete questionnaire at appt Call back number: [phone] documented in this encounter Plan of Treatment [...] on filedocumented in this encounter Care Teams Manager Utilization Management Relationship Specialty Start Date End Date Beronica Spencer APRN [address] [place] [phone] PCP - General Nurse Practitioner-Family 08/20/20 documented as of this encounter
== END 2025-02-13 23:59 | disposition home or self-care (01) ==
LOC: LAB.DROPOF 02-15 10:13
PROVIDERS: PCP Nurse Practitioner; Visit Provider Nurse Practitioner
DX: D69.3 Immune thrombocytopenic purpura (principal)
CPT/HCPCS: 85025

== ENCOUNTER 2025-03-02 21:12 | Emergency (ER) | payer MEDICARE, SELFPAY ==
--- OUTSIDE RECORDS SUMMARY | 2023-09-14 10:15 | XMS_ITS | Continuity of Care Document ---
Author Organization [facility] Address [address] [place] [address] Phone Care Team Providers Care Instrument Technician Name Role Phone Lucian PAPER STEAMER, Mara Unavailable Unavailable Procedures Procedure Date TELEHEALTH OFFICE/OUTPATIENT VISIT EST A Advance Directives Directive Yes / No Effective Date File Name No Information Encounters Encounter Description Practice Location Reason(s) For Visit Diagnoses Date Provider [facility], [address] [facility], [place], [address], [place] tel:[phone] 2 [facility] [place] No Information 2023 Lucian Terry. [address] [place], [place], [id number], [place]. tel:[phone] Family History Family Member Type Diagnosis Age At Onset No Information Payers Payer name Insurance type Covered libertarian ID Authoriza tilaquita(s) [facility]- Medicare [id number] Social History Type Description Quantity Date Captured [...]
[2025-03-02 21:12] VITALS: BP 138/78; PULSE 94; RESP 20; TEMP 36.8; O2SAT 95; BMI 27.1
--- NOTE | 2025-03-02 21:35 | ED_ITS ---
Discharge Plan Disposition Patient Disposition: Home, Self-Care Prescriptions Prescriptions: New ondansetron 4 mg tablet,disintegrating 4 mg PO Q6H PRN (Reason: nausea and vomiting) Qty: 12 0RF No Action pantoprazole 40 mg tablet,delayed release (DR/EC) 40 mg PO DAILY Patient Comments: TAKE 1 TABLET BY MOUTH EVERY DAY ferrous sulfate 325 mg (65 mg iron) tablet,delayed release (DR/EC) 325 mg PO DAILY Patient Comments: TAKE 1 TABLET BY MOUTH EVERY DAY desvenlafaxine succinate 50 mg tablet extended release 24 hr 50 mg PO Q24H dextromethorphan-guaifenesin 60-1,200 mg tablet extended release 12 hr 1 tab PO Q12H Qty: 60 0RF cefdinir 300 mg capsule 300 mg PO BID Qty: 20 0RF albuterol sulfate 90 mcg/actuation HFA aerosol inhaler 2 puff inhalation Q4-6H PRN (Reason: shortness of breath or wheezing) Qty: 8.5 0RF methylprednisolone 4 mg tablets,dose pack See Rx Instructions PO PER PKG DIR Qty: 21 0RF Rx Instructions: PO PER PKG DIR hydroxyzine HCl 50 mg tablet PO Patient Comments: TAKE 1 TABLET BY MOUTH TWICE A DAY NEEDED guanfacine 1 mg tablet PO Patient Comments: TAKE 1 TABLET BY MOUTH TWICE A DAY DIRECTED- STOP PROPRANOLOL desvenlafaxine succinate [Pristiq] 25 mg tablet extended release 24 hr 25 mg PO DAILY Qty: 30 1RF naltrexone 50 mg tablet 50 mg PO DAILY Qty: 30 1RF drospirenone-ethinyl estradiol [REMINGTON (28)] 3-0.02 mg tablet 1 tab PO DAILY Qty: 28 6RF buspirone 15 mg tablet 15 mg PO TID Qty: 90 1RF lamotrigine 150 mg tablet 300 mg PO DAILY Qty: 60 1RF lamotrigine 25 mg tablet 25 mg PO DAILY Qty: 30 1RF Rx Instructions: Take with Lamictal 300 mg daily. Referrals Follow up/Referrals: Provider,Referral, MD [Primary Care Provider, Medical] - See instructions Activity Restrictions/Add. Instructions Additional Instructions/Restrictions: Follow-up with your primary care physician as needed. You are being prescribed Zofran to help with your symptoms. Take this as prescribed. If you develop any new or worsening symptoms, or if you become concerned for your health for any reason, return to the emergency department for evaluation. Clinical Impressions Clinical Impression: Nausea & vomiting Instructions Patient Instructions: DI for Acute Abdominal Pain Print Language Print Language: [place] Discharge ED Provider: Harry Mendieta Adult HPI General Chief complaint: Abdominal Pain Stated complaint: N/V, Abd pain, weakness. Time Seen by Provider: 03/02/25 21:28 Mode of Arrival: EMS Source of Information: Patient and EMS Description of Symptoms (Recalled from ER Triage Doc. by RN): patient presents today for n/v abdominal pain. patient has a history of histoplasmosis and states she was diagnosed back on 2008. History of Present Illness HPI narrative: Fely Lara is a 34y female with a past medical history of histoplasmosis on immunotherapy, mediastinitis, low platelets, , adenoidectomy, carpal tunnel syndrome, tonsillectomy, tubal ligation who presents to the emergency department complaints of nausea vomiting and abdominal pain. Patient states that she has had 3 days of constant nausea and vomiting. She states that she has mostly been dry heaving. She states that on a couple occasions, she tried to induce vomiting by seeing her finger in her throat and had some blood afterwards and thinks that she may have scratched the back of her throat. She does note that she has low platelets and is on immunotherapy. She states that she does smoke marijuana but recently quit smoking tobacco and anytime she stopped smoking tobacco, her abdominal pain, nausea and vomiting worsen. She states that this is a recurrent issue. She received Zofran and route that helped slightly, however she is significantly nauseated now. She reports that her urine is dark and believes that she may be dehydrated. Related Data Home Medications ?Medication ?Instructions ?Recorded ?Confirmed guanfacine 1 mg tablet mg PO 12/08/24 02/20/25 hydroxyzine HCl 50 mg tablet mg PO 12/08/24 02/20/25 desvenlafaxine succinate 50 mg 50 mg PO Q24H 02/20/25 02/20/25 tablet,extended release 24 hr ferrous sulfate 325 mg (65 mg 325 mg PO DAILY 02/20/25 02/20/25 iron) tablet,delayed release pantoprazole 40 mg tablet,delayed 40 mg PO DAILY 02/2002/20/25 release Previous Rx's ?Medication ?Instructions ?Recorded drospirenone 3 mg-ethinyl 1 tab PO DAILY #28 tabs 11/12 10/05 estradiol 0.02 mg tablet (REMINGTON (28)) desvenlafaxine succinate 25 mg 25 mg PO DAILY #30 tabs 12/26/24 tablet,extended release 24 hr (Pristiq) naltrexone 50 mg tablet 50 mg PO DAILY #30 tabs 12/12 11/05 buspirone 15 mg tablet 15 mg PO TID anxiety #90 tab s 02/09/25 albuterol sulfate 90 mcg/actuation 2 puff inhalation Q 4-6H PRN 02/13/25 aerosol inhaler shortness of breath or wheez ing #8.5 grams cefdinir 300 mg capsule 300 mg PO BID #20 caps 02/13 dextromethorphan-guaifenesin ER 60 1 tab PO Q12H #60 t abs 02/13/25 mg-1,200 mg tab,extend release,12hr methylprednisolone 4 mg tablets in See Rx Instructions PO PER PKG DIR 02/13/25 a dose pack #21 tabs lamotrigine 150 mg tablet 300 mg (2 x 150 mg) PO DAILY PTSD 02/28/25 #60 tabs lamotrigine 25 mg tablet 25 mg PO DAILY #30 tabs 02/12 01/05 ondansetron 4 mg disintegrating 4 mg PO Q6H PRN nausea and 03/03/25 tablet vomiting #12 tabs Allergies Allergy/AdvReac Type Severity Reaction Status Date / Time Iodinated Contrast Media Allergy Mild Verified 02/13/25 14:07 iodine Allergy Mild Verified 02/13/25 14:07 sertraline (From Zoloft) Allergy Mild Verified 02/13/25 14:07 PFSH PFSH Disclaimer: The information contained in this section may have been updated after the patient was seen, as this information can be updated by other users. Medical History Spontaneous ecchymoses Dysmenorrhea Tobacco dependence due to chewing tobacco Nicotine dependence Screen for STD (sexually transmitted disease) Surgical History Hx of adenoidectomy Hx of section Hx of knee surgery Hx of carpal tunnel repair Hx of tonsillectomy Hx of tubal ligation Family History Grandmother Coronary artery disease Diabetes Grandfather Coronary artery disease Diabetes Hypertension Father Coronary artery disease Mother Diabetes Other Heart attack Social History Smoking Status: Light tobacco smoker alcohol intake: never current occupational status: employed Travel in the last 8 weeks?: Inside the [place] Have you lived/traveled outside US in past 30 days?: No Contact w/someone who lives/traveled outside US past 30 days?: No Exposure to someone with infectious disease in past 14 days?: No Do you have a fever (greater than 100.4 F or 38 C)?: No Have you tested positive for COVID-19?: No Exposed to someone with COVID-19 in past 14 days?: No Do you have a sore throat?: No Do you have a cough?: No Do you have any weakness?: No Do you have any diarrhea?: No Are you experiencing any unusual bleeding?: No Do you have any muscle aches/pain?: No Do you have any abdominal pain?: No Are you experiencing loss of taste or smell?: No Other Medical History Have you received the Pneumonia Vaccine: Yes ROS Obtained: Yes Systems reviewed as appropriate & no additional complaints except as documented Physical Exam General General appearance: alert and in no apparent distress Head Head exam: atraumatic Eye Eye exam: Present normal appearance ENT ENT exam: Present normal external ear exam Neck Neck exam: Present full ROM Chest Chest inspection: Present symmetric chest wall rise Respiratory Respiratory exam: Present normal lung sounds bilaterally; Absent respiratory distress Cardiovascular Cardiovascular exam: Present regular rate and normal rhythm Abdominal Exam Abdominal exam: Present soft and tenderness (generalized); Absent distention, guarding or rigidity Extremities Exam Extremities exam: Present normal inspection Back Exam Back exam: Present normal inspection Neurological Exam Neurological exam: Present alert and oriented X3 Psychiatric Psychiatric exam: Present normal affect Skin Skin exam: Present warm and dry Medical Decision Making Medical Records Screening: Per USPSTF and CDC recommendations, given the prevalence of disease in our region, it is our hospital?s policy to screen for HIV and viral Hepatitis for all patients aged 18 and over and those with ongoing risk factors. [place] Inquiry Pt receiving controlled substance: No Vital Signs: 03/02/25 21:12 03/03/25 00:54 Temperature 98.3 F 98.2 F Temperature Source Temporal Artery Scan Pulse Rate 78 Pulse Rate [Right Radial] 94 H Respiratory Rate 20 20 Blood Pressure 132/87 Blood Pressure [Right Arm] 138/78 Blood Pressure Mean [Right Arm] 98 Blood Pressure Source [Right Arm] Automatic Cuff Blood Pressure Position [Right Arm] Sitting 02 Sat by Pulse Oximetry 95 Oxygen Delivery Method Room Air Room Air Lab Data Lab Results 03/02/25 22:00: WBC 10.0, RBC 4.72, Hgb 14.7, Hct 40.4, MCV 85.6, MCH 31.1, MCHC 36.4 H, RDW 12.8, Plt Count 244, MPV 9.6, Neut % (Auto) 78.8, Lymph % (Auto) 13.7, [place] % (Auto) 6.5, Eos % (Auto) 0.5, Baso % (Auto) 0.3, Neut # (Auto) 7.9 H, Lymph # (Auto) 1.4, [place] # (Auto) 0.7, Eos # (Auto) 0.1, Baso # (Auto) 0.0, Sodium 139, Potassium 3.8, Chloride 103, Carbon Dioxide 20 L, Anion Gap 19.8 H, BUN 11, Creatinine 0.70, Estimated Creat Clear 115, Estimated GFR 95, Est GFR ( Amer) 115, Glucose 103 H, Lactate 1.0, Calcium 10.3 H, Total Bilirubin 0.9, AST 43 H, ALT 19, Alkaline Phosphatase 66, Total Protein 7.8, Albumin 4.7, Globulin 3.1, Albumin/Globulin Ratio 1.5, Lipase 79, Serum HCG, Qual Negative, Urine Color Yellow, Urine Appearance Sl cloudy, Urine pH 5.0, Ur Specific [place] >= 1.030, Urine Protein 1+ A, Urine Glucose (UA) Negative, Urine Ketones 2+, Urine Blood Negative, Urine Nitrate Negative, Urine Bilirubin Negative, Urine Urobilinogen 1.0, Ur Leukocyte Esterase Negative, Urine RBC Occasional, Urine WBC 5-10, Ur Squamous Epith Cells 3-5, Calcium Oxalate Crystal 1+, Urine Bacteria 3+, Urine Mucus 4+, SARS-CoV-2 (PCR) Not detected, Influenza A Untype (PCR) Not detected, Influenza Type B (PCR) Not detected 03/02/25 22:00 03/02/25 22:00 Orders (Tests/Meds): ED MEDICATIONS Discontinued Medications Generic Name Dose Route Start Last Admin Trade Name Precious PRN Reason Stop Dose Admin Diphenhydramine HCl 25 mg 03/02/25 21:34 03/02/25 21:56 Diphenhydramine 50mg/Ml Vial IV 03/02/25 21:35 25 mg ONCE ONE Administration Droperidol 2.5 mg 03/02/25 21:34 03/02/25 21:56 Droperidol 5mg/2ml Vial IV 03/02/25 21:35 2.5 mg ONCE ONE Administration Lactated Ringer's 1,000 mls @ 999 mls/hr 03/02/25 21:34 03/03/25 00:57 Lactated Ringer's 1000 Ml Bag IV 03/02/25 22:34 Infused .Q1H1M ONE Infusion ORDERS Category Date Time Status CBC w/Auto Diff [Complete Blood Count Auto Diff] Stat Lab 03/02/25 22:00 Completed CMP [Comprehensive Metabolic Panel] Stat Lab 03/02/25 22:00 Completed Lactic Acid Stat Lab 03/02/25 22:00 Completed Lipase Stat Lab 03/02/25 22:00 Completed Rapid PCR Covid and Flu A/B Stat Lab 03/02/25 22:00 Completed Serum [HCG Qualitative, Serum] Stat Lab 03/02/25 22:00 Completed UA [Urinalysis and Microscopic] Stat Lab 03/02/25 22:00 Completed Urine Culture Stat Micro 03/02/25 22:00 Received ECG Data Tracing #1: I reviewed this ECG and interpreted as documented below: NSR. No ST elevation or depression. QTC within normal limits Medical Decision Narrative: Fely Lara is a 34y female with a past medical history of histoplasmosis on immunotherapy, mediastinitis, low platelets, , adenoidectomy, carpal tunnel syndrome, tonsillectomy, tubal ligation who presents to the emergency department complaints of nausea vomiting and abdominal pain. Patient states that she has had 3 days of constant nausea and vomiting. She states that she has mostly been dry heaving. She states that on a couple occasions, she tried to induce vomiting by seeing her finger in her throat and had some blood afterwards and thinks that she may have scratched the back of her throat. She does note that she has low platelets and is on immunotherapy. She states that she does smoke marijuana but recently quit smoking tobacco and anytime she stopped smoking tobacco, her abdominal pain, nausea and vomiting worsen. She states that this is a recurrent issue. She received Zofran and route that helped slightly, however she is significantly nauseated now. She reports that her urine is dark and believes that she may be dehydrated. On arrival, patient is hemodynamically stable, in no acute distress, breathing comfortably on room air. Afebrile. Physical exam, stated above, revealed a nontoxic-appearing female in no distress. She is alert. Cardiopulmonary exam is unremarkable. She has generalized abdominal tenderness without guarding, distention and is not peritonitic. She appears mildly dehydrated. Physical exam is otherwise unremarkable. Differential diagnosis includes, but is not limited to: Cannabis hyperemesis/cyclical vomiting syndrome, dehydration, electrolyte derangement, thrombocytopenia, gastritis, peptic ulcer disease, acute pancreatitis, among others. The most morbid conditions were considered and workup was based on these. Patient's workup included: EKG, CBC with differential, serum test, urinalysis, CMP, lactic acid, lipase, rapid COVID and flu testing. CT imaging of the abdomen pelvis was considered, however patient states she has recurrent episodes of this pain and has had imaging in the past regarding this type pain. Will avoid radiation exposure at this time as have low concern for biliary pathology or surgical pathology given her reassuring physical exam and will treat patient symptoms and obtain workup as described above. Will treat patient symptoms with 2.5 mg of droperidol and 25 mg of IV Benadryl given she has had Zofran prior to arrival and only temporarily improved her symptoms slightly. EKG without evidence of ischemia. See interpretation above Labs are grossly unremarkable nonactionable. No leukocytosis. Platelets normal at 244. No anemia. Electrolytes within normal limits. Anion gap is elevated. No MARCELINO. Calcium very mildly elevated 10.3. Very mild elevation in AST to 43 but liver enzymes and bilirubin within normal limits. Lipase normal at 79. Negative test. Urinalysis with 1+ protein but only 5-10 white blood cells. 3+ bacteria. Nitrate and leukocyte esterase negative. This is not consistent with a urinary tract infection. On reassessment, patient is sleeping comfortably. She is not had any recurrence of her vomiting here today and she reports subjective improvement in her symptoms. Given this, I encouraged her to avoid marijuana use in the future as this is likely contributing to her symptoms and recurrent abdominal pain/nausea/vomiting. Also encouraged her to follow-up with her primary care physician. Return precautions were given. All questions were answered. She demonstrated understanding and was in agreement with this plan. She was then discharged from the emergency department in stable condition. Critical Care Critical Care Time Critical Care Time: No
--- OUTSIDE RECORDS SUMMARY | 2025-03-02 21:36 | XMS_ITS | Clinical Summary ---
Author Organization [facility] Address [address] [place], [place] [address] Care Team Providers Care Edge Bander Hand Name Role Phone None, Physician Primary Care [...] original. The patient's chart is closed with [facility] as of 07/22/2018. [facility] Ob Dr [...] 137 - 145 mmol/L 06/12/2017 7:[address] [facility] Potassium 4.1 3.5 - 5.1 mmol/L 06/12/2017 7:[address] [facility] Chloride 104 98 - 107 mmol/L 06/12/2017 7:[address] [facility] Carbon Dioxide 27 22 - 30 mmol/L 06/12/2017 7:[address] [facility] Glucose 91 74 - 106 mg/dL 06/12/2017 7:[address] [facility] Blood Urea Nitrogen (BUN) 14 7 - 20 mg/dL 06/12/2017 7:[address] [facility] Creatinine-Blood 0.7 0.7 - 1.5 mg/dL 06/12/2017 7:[address] [facility] BUN/Creatinine Ratio 20.0 RATIO 06/12/2017 7:[address] [facility] Total Protein 6.9 6.3 - 8.2 g/dL 06/12/2017 7:[address] [facility] Albumin 3.6 3.5 - 5.0 g/dL 06/12/2017 7:[address] [facility] Globulin 3.3 1.5 - 4.5 g/dL 06/12/2017 7:[address] [facility] Albumin/Globulin Ratio 1.1 1.1 - 2.5 RATIO 06/12/2017 7:[address] [facility] Calcium 8.9 8.4 - 10.2 mg/dL 06/12/2017 7:[address] [facility] Total Bilirubin 0.2 0.2 - 1.3 mg/dL 06/12/2017 7:[address] [facility] AST/SGOT 28 15 - 46 U/L 06/12/2017 7:[address] [facility] ALT/SGPT 43 13 - 69 U/L 06/12/2017 7:[address] [facility] Alkaline Phosphatase 59 38 - 126 U/L 06/12/2017 7:[address] [facility] Estimated GFR >60 >60 /1.73 m2 06/12/2017 7:[address] [facility] Comment: Result only valid for patients age 18 to 70 yrs. Body Mass not taken into account. Multiply by 1.212 if . Results provided are valid only for patients who are 18 to 70 years of age. Results do not take into account body mass. Plasma BLOOD SPECIMEN FROM PATIENT / Unknown 06/12/2017 6:51 PM EST 06/12/2017 7:07 PM EST us Harley Ordoñez BAIL AGENT LAB BLOOD ORDERABLES Final R esult [facility] [address] [place] [address] * Hemoglobin A1C (03/15/2017 7:20 AM EDT) Hemoglobin A1C 5.3 4.3 - 5.7 % 03/15/2017 11:40 AM EDT [facility] ([id number]) Comment: Patients with conditions that shorten erythrocyte survival, such as recovery from acute blood loss, hemoltic anemia, kidney disease, or the presence of unstable hemoglobulins like HbSS, HbCC, and HbSC may yield falsely decreased HbA1c test results. Iron deficiency may yield falsely increased HbA1c test results. Estimated Average Glucose 105 mg/dL 03/15/2017 11:40 AM EDT [facility] ([id number]) Whole Blood BLOOD SPECIMEN FROM PATIENT / Unknown 03/15/2017 7:20 AM EDT 03/15/2017 7:46 AM EDT us Jarrod Francois MD LAB BLOOD ORDERABLES Final Result [facility] ([id number]) [address] [place] [address] * Pap Smear (09/29/2016 10:48 AM EDT) Pathology SPECIMEN FROM UTERINE CERVIX / Unknown 09/29/2016 10:48 AM EDT 09/29/2016 10:48 AM EDT Narrative [facility] ([facility]) - 10/06/2016 10:22 AM EDT [facility] [address] [place] [address] * Clinician: Patient Name: Accession Number: [id number] MATHISDIDI SHELLEY [id number] [employer] [employer] - Collected: BUSHRA : 1990 09/29/[address] [place] [address] Sex: F Received: [address] Chart #: 09/29/2016 [place] [address]- Reported: 10/06/2016 GYNECOLOGIC CYTOLOGY REPORT Final Report DIAGNOSIS: NEGATIVE (NO EVIDENCE OF INTRAEPITHELIAL LESION OR MALIGNANCY) ADEQUACY DESCRIPTION SCANT CELLULARITY SPECIMEN ADEQUACY: SATISFACTORY FOR INTERPRETATION: NO ENDOCERVICAL CELLS PRESENT - PATIENT SPECIMEN SOURCE: THIN PREP CERVICAL/ENDOCERVICAL MENSTRUAL STATUS: LMP: 06/02/2016 : Y Comment: Last Pap 7 years ago CPT Codes: (Tech) - 74649, x1 VISUAL SUPERVISOR: DANA AC QC REVIEW : RACHANA LARSON(ASCP) [...] been analyzed by the [employer]in[employer] Imaging System ([employer]), an automated imaging and review system. Drew Lara M.D. - Digital Ad Trafficker Teresa Faulkner M.D. - Director of Cytopathology us Lyubov Mathis BAIL AGENT PATHOLOGY/CYTOLOGY ORDERA BLES Final Result [facility] ([facility]) [address] [place] [address] from Last 3 Months or [...] 8:46 AM 03/09/2017 4:25 PM Care Teams Edge Bander Hand Relationship Specialty Start Date End Date None, Physician PCP - General 08/18/16
--- OUTSIDE RECORDS SUMMARY | 2025-03-02 21:36 | XMS_ITS | Clinical Summary ---
Author Organization [facility] Address [address] [place] [address] Care Team Providers Care Retort Pre Cooker Name Role Phone Harley Faulkner MD Unavailable [phone] Primary Care Provider Unavailabl e Encounters * This document contains information received from the source organization and may not represent a complete record from that organization. Date Type Department Care Team Description 12/04/2024 Telephone [facility] [address] [place] [address] Andie Hart, [facility] Follow Up 11/30/2024 Orders Only [facility] - Pulmonology [address] [facility] [address] [place], [place] [id number] Belem Springer, ERI Pulmonary fibrosis, not otherwise specified (Primary Dx); History of histoplasmosis 11/30/2024 [facility] [address] [facility] [address] [place], [place] [id number] Citlaly Douglas, CRUSHER Appt with Dr. Moseley from Last 3 Months Social History Tobacco [...] Visit [facility] [address] [place] [address] Yessenia Nicole MD [address] [facility] [address] [place] [address] Health Maintenance Due Date Last [...] from Last 3 Months Results * (ABNORMAL) [facility] CBC W/ AUTO DIFF (01/26/2025 9:39 AM EDT) Only the most recent of5 resultswithin the time period is included. [facility] WBC 7.4 4.0 - 10.8 x10(3)/ul 01/26/2025 [...] SLIDE REVIEW NONE 01/26/2025 9:53 AM EDT [facility] HE Rem 2.0 Blood 01/26/2025 9:39 AM EDT 01/26/2025 9:44 AM EDT [facility] - 01/26/2025 9:53 AM EDT Performed by [facility], [address] [place] [address] us Chhaya Corbin MD LAB BLOOD ORDERABLES Final Re sult [facility] [address] [place] [address], [facility] HE Rem 2.0 Pathology Department [address] [place] [address] * (ABNORMAL) AUTODIFF (01/26/2025 9:39 AM EDT) [...] 9:39 AM EDT 01/26/2025 9:44 AM EDT [facility] - 01/26/2025 9:53 AM EDT Ordered by Discern Expert. [email or web address] Performed by [facility], [address] [place] [address] us Chhaya Corbin MD LAB BLOOD ORDERABLES Final Re sult [facility] [address] [place] [address], [facility] HE Rem 2.0 Pathology Department [address] [place] [address] * (ABNORMAL) [facility] MORPHOLOGY (01/19/2025 10:53 AM [...] 3 AM EDT 01/19/2025 10:54 AM EDT [facility] - 01/19/2025 11:50 AM EDT 01/19 tx Ordered by Discern Expert. Performed by [facility], [address] [place] [address] Chhaya Corbin MD LAB BLOOD ORDERABLES Final Re sult Performing Organization Address City/[facility]/ZIP Co de Phone Number [facility] [address] [place] [address], [place] [facility] HE Rem 2.0 Pathology Department [address] [place] [address] * IRON, TIBC AND FERRITIN PANEL (01/05/2025 [...] 8:27 AM EDT 01/05/2025 8:39 AM EDT [facility] - 01/05/2025 9:07 AM EDT 01/05 C1 Ritux - has hep panel Performed by [facility], [address] [place] [address] Chhaya Corbin MD LAB BLOOD ORDERABLES Final Re sult Performing Organization Address City/[facility]/ZIP Co de Phone Number [facility] [address] [place] [address], [facility] CH Rem 2.0 Pathology Department [address] [place] [address] * Ferritin (01/05/2025 8:27 AM EDT) Ferritin 16.0 11.0 - 306.8 ng/mL 01/05/2025 9:17 AM EDT UL CH Rem 2.0 Blood 01/05/2025 8:27 AM EDT 01/05/2025 8:39 AM EDT [facility] - 01/05/2025 9:17 AM EDT 01/05 Ritux - has hep panel Performed by [facility], [address] [place] [address] us Chhaya Corbin MD LAB BLOOD ORDERABLES Final Re sult Performing Organization Address [facility]/ZIP [place] [address], [facility] CH Rem 2.0 Pathology Department [address] [place] [address] * CULTURE BLOOD (12/01/2024 12:03 PM EDT) Only the most recent of3 resultswithin the time period is included. Blood 12/01/2024 12:0 3 PM EDT 12/01/2024 2:02 PM EDT [facility] - 12/06/2024 4:02 PM EDT Constantino LARA KEIKO DANIELNE : Sex Female t: 9 : Microbiology - Bacteriology PROCEDURE: Culture Blood [R1] COLLECTED DATE/TIME: 12/01/2024 12:03 EDT SOURCE: Blood START DATE/TIME: 12/01/2024 14:02 EDT BODY SITE: ORDERING PHYSICIAN TO SMALLWOOD MD-INT FREE TEXT SOURCE: FINAL REPORTS Final Report [] Verified Date/Time: 12/06/2024 16:02 EDT No growth at 5 days. Performing Locations R1: This test was performed at: [facility], Pathology Department, [address] [place] [address], [facility]- , [place], us To Smallwood MD LAB BLOOD ORDERABLES Final R esult Performing Organization Address City/[facility]/ZIP [place] [address], * (ABNORMAL) PT/INR PROTHROMBIN TIME PTT (11/30/2024 10:46 PM EDT) PT 10.1(L) 10.2 - 12.9 Second 11/30/2024 11:28 PM EDT [facility] Heme Coag UA INR 0.8 11/30/2024 11:28 PM EDT [facility] Heme Coag UA Comment: Recommended INR range for Oral Anticoagulant Therapy : STANDARD: 2.0 - 3.0 HIGH: 3.0 - 4.5 NOTE: Recommended range will be different for patients with mechanical implants. PTT 33.1 26.6 - 35.9 Second 11/30/2024 11:27 PM EDT [facility] Heme Coag UA Comment:Heparin therapeutic range is 55-95 sec. When the PTT is> 95 sec, if on heparin, refer to heparin protocol. If not on heparin, recommend appropriate workup. Blood 11/30/2024 10:4 6 PM EDT 11/30/2024 11:04 PM EDT [facility] - 11/30/2024 11:28 PM EDT pt has two charts, plz merge labs Performed by [facility], [address] [place] [address] Timi Morley MD LAB BLOOD ORDERABLES F inal Result [facility] [address] [place] [address], [facility] Heme Coag UA Pathology Department [address] [place] [address] * (ABNORMAL) CBC With Differential (11/30/2024 10:46 PM EDT) WBC 7.9 4.0 - 10.8 x10(3)/ul 11/30/2024 11:41 PM EDT [facility] Heme Coag UA SS RBC 3.92 3.77 - 5.16 x10(6)/ul 11/30/2024 11:41 PM EDT [facility] Heme Coag UA SS HGB 12.4 12.0 [...] SCAN 11/30/2024 11:39 PM EDT [facility] CH Remisol 2.0 SS Blood 11/30/2024 10:4 6 PM EDT 11/30/2024 11:04 PM EDT [facility] - 11/30/2024 11:41 PM EDT pt has two charts, plz merge labs, PLT 16 Performed by [facility], [address] [place] [address] us Timi Morley MD LAB BLOOD ORDERABLES F inal Result [facility] [address] [place] [address], [facility] Heme Coag UA SS Pathology Department [address] [place] [address] [facility] CH Remisol 2.0 SS Pathology Department [address] [place] [address] * (ABNORMAL) Comprehensive metabolic panel (11/30/2024 10:46 PM EDT) [facility] Sodium 140 136 - 145 mmol/L 11/30/2024 11:29 PM EDT [facility] CH Remisol 2.0 SS Potassium 4.0 3.5 - 5.1 mmol/L 11/30/2024 11:29 PM EDT [facility] CH Remisol 2.0 SS Chloride 104 98 - 110 mmol/L 11/30/2024 11:29 PM EDT [facility] CH Remisol 2.0 SS CO2 30 21 - 31 mmol/L 11/30/2024 11:29 PM EDT L CH Remisol 2.0 SS Anion Gap 6.0 2.0 - 11.0 11/30/2024 11:29 PM EDT [facility] CH Remisol 2.0 SS Calcium 9.0 8.6 - 10.2 mg/dL 11/30/2024 11:29 PM EDT [facility] CH Remisol 2.0 SS Glucose 129(H) 74 - 109 mg/dL 11/30/2024 11:29 PM EDT L CH Remisol 2.0 SS BUN 16 7 - 25 mg/dL 11/30/2024 11:29 PM EDT L CH Remisol 2.0 SS Creatinine 0.80 0.60 - 1.20 mg/dL 11/30/2024 11:29 PM EDT [facility] CH Remisol 2.0 SS BUN/Creatinine Ratio 20.0 [...] <=24 Units/Lite r 11/30/2024 11:29 PM EDT [facility] CH Remisol 2.0 SS AST 27 13 - 39 Units/Lite r 11/30/2024 11:29 PM EDT [facility] CH Remisol 2.0 SS Total Bilirubin 0.4 0.3 - 1.0 mg/dL 11/30/2024 11:29 PM EDT [facility] CH Remisol 2.0 SS Globulin, Total 3.5 2.0 - 3.5 Gram/dL 11/30/2024 11:29 PM EDT [facility] CH Remisol 2.0 SS EGFR 98 >=60 mL/min/1.7 3m2 11/30/2024 11:29 PM EDT [facility] CH Remisol 2.0 SS Comment:eGFR calculation per formed using the CKD-EPI 2020 equation (race variable excluded) Blood 11/30/2024 10:4 6 PM EDT 11/30/2024 11:04 PM EDT [facility] - 11/30/2024 11:29 PM EDT pt has two charts, plz merge labs Performed by [facility], [address] [place] [address] us Timi Morley MD LAB BLOOD ORDERABLES F inal Result Performing Organization Address [facility]/State/ZIP Co de Phone Number [facility] [address] [place] [address], [facility] CH Remisol 2.0 SS Pathology Department [address] [place] [address] from Last 3 Months Insurance [employer] MEDICARE ADVANTAGE Care Teams Retort Pre Cooker Relationship Specialty Start Date End Date Farida Daugherty Dr. PCP - General 11/12/24 Harley Faulkner MD [address] [place] [id number] Family Medicine 03/08/20
--- OUTSIDE RECORDS SUMMARY | 2025-03-02 21:36 | XMS_ITS | Clinical Summary ---
Author Organization [facility] Address [address] [place] [address] Phone Care Team Providers Care Rodeo Performer Name Role Phone SpencerElidaBeronica IGNACIO Primary Care Provider [phone] Allergies Active Allergy Reactions Criticality Noted Date Comments Gadolinium-Containing Contrast Media Hives 08/20/2020 Hydromorphone Itching Medium 06/12/2017 SOA, Itching, anxiety Iodine Hives 11/23/2018 Sertraline Anaphylaxis,Other (See Comments),Shortness Of Breath High 09/09/2016 Shellfish Containing Products Anaphylaxis High 06/26/2020 [place] Pollen Other (See Comments) Medium 10/10/2024 eyes [...] Active fluticasone propionate (FLONASE) 50 mcg/actuation Nasl [place], SuspensionIndic ations:Middle ear effusion, bilateral SHAKE LIQUID [...] Department Care Team Description 01/15/2025 Patient Outreach [facility] [address] [place] [address] Beronica Spencer APRN Central Patient Navigator Outreach (AWV) from Last 3 Months Immunizations Immunization Administration [...] Date Recorded PHQ-2 Total Score 0 10/29/2022 [facility] [place] of Occupat ional Health - Occupational Stress [...] Cotest 2018 Annual Wellness Exam 10/30/2023 10/29/2022 Cervical Cancer Screening 08/12/2024 Pap Smear 08/12/2024 08/12/2021, 09/29/2016 COVID-19 Vaccine ( season) 2025 04/08/2021, 12/19/2020, 11/28/2020 Influenza Vaccine (#1) 2025 , 04/12/2020, 07/11/2018, [...] Procedure Name Priority Date/Time Associated Diagnosis Comments LAST MODEL MAKER CYTOLOGY REQUEST (PAP ONLY) Routine 08/12/2021 3:21 PM EST Well woman exam with routine gynecological exam from Last 3 Months or Most Recently Relevant to Health Maintenance Results * LAST MODEL MAKER CYTOLOGY REQUEST (PAP ONLY) (08/12/2021 3:21 PM EST) CASE REPORT Gynecologic Cytology Report Case: [id number] Authorizing Provider: Davion Alex MD Collected: 08/12/2021 1521 [facility] Re[facility]: 08/12/2021 1521 First Screen: Lobo Michel CT Specimen: LIQUID-BASED PAP - CERVICAL/ENDOCERV ICAL, Cervix, Endocervical 08/13/2021 3:28 PM EST [facility] PAP FINAL DIAGNOSIS Negative for intraepithelial lesion or malignancy 08/13/2021 3:28 PM EST [facility] at 1528 EST MICROSCOPIC DESCRIPTION Microscopic examination is performed and the findings corroborate the diagnosis. 08/13/2021 3:28 PM EST [facility] PAP SMEAR ADEQUACY Satisfactory for evaluation 08/13/2021 3:28 PM EST [facility] ENDOCERVICAL T-ZONE Transformation zone present 08/13/2021 3:28 PM EST [facility] EMBEDDED IMAGES 3:28 PM EST [facility] PAP DISCLAIMER The Pap Smear is a screening test that aids in the detection of cervical cancer and cancer precursors. Both false positive and false negative results can occur. The test should be used at regular intervals, and positive results should be confirmed before definitive therapy. Processed using the ThinPrep Hand Cell Tuber Automated cytology screening device (IMNEXT). 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
--- OUTSIDE RECORDS SUMMARY | 2025-03-02 21:36 | XMS_ITS | Encounter Summary ---
Author Organization [facility] [place] [address] Care Team Providers Care Manufacturing Project Engineer Name Role Phone Johanna Beronica SCHEDULE HANGER Primary Care Provider [phone] Reason for Visit * Reason Onset Date Comments Central Patient Navigator Outreach 01/15/2025 AWV Encounter Details Date Type Department Care Team (Late st Contact Info) Description 01/15/2025 Patient Outreach [facility] [address] [place], [place] [id number] Beronica Spencer APRN [address] [place] [address] Central Patient Navigator Outreach (AWV) Social History [...] Date Recorded PHQ-2 Total Score 0 10/29/2022 [place] [facility] Occupat ional Health - Occupational Stress [...] Outreach Attempt Count: 1st Care Gaps 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 Pt stated she will complete questionnaire at appt Call back number: [phone] documented in this encounter Plan of Treatment Not on file documented as of this encounter Goals Goal Patient Goal Type Associated Problems Recent Progress Patient-Stated? Author Maintain a healthy diet, exercise regularly and maintain an ideal body weight General No Trduy Winkler RMA Stay Tobacco Free Lifestyle No Trudy Winkler RMA documented as of this encounter Visit Diagnoses Not on filedocumented in this encounter Care Teams Manufacturing Project Engineer Relationship Specialty Start Date End Date Beronica Spencer APRN [address] [place] [phone] PCP - General Nurse Practitioner-Family 08/20/20 documented as of this encounter
--- OUTSIDE RECORDS SUMMARY | 2025-03-02 21:36 | XMS_ITS | Encounter Summary ---
Author Organization [facility] Address [address] [place] [address] Care Team Providers Care Special Education Curriculum Specialist Name Role Phone Beronica Spencer APRN Primary Care Provider [phone] Encounter Details Date Type Department Care Team ([facility] Contact Info) Description 11/29/2024 Telephone [facility] [address] [place] [address] Sotero Hoffman MD [address] [place] [address] Social History Tobacco Use Types Packs/Day Years [...] Date Recorded PHQ-2 Total Score 0 10/29/2022 [facility] [place] of Occupat ional Health - Occupational Stress [...] on filedocumented in this encounter Care Teams Special Education Curriculum Specialist Relationship Specialty Start Date End Date Beronica Spencer APRN [address] [place] [address] PCP - General Nurse Practitioner-Family 08/20/20 documented as of this encounter
[2025-03-02] MEDS: LACTATED RINGERS 1000ML 1,000 ML 999 ML IV (21:55)
[2025-03-02] MEDS: droPERidol 5MG/2ML VIAL 2.5 MG IV (21:56)
[2025-03-02 22:08] LABS: Coronavirus 19, PCR Not Detected (NotDetected); Influenza A, PCR Not Detected (NotDetected); Influenza B, PCR Not Detected (NotDetected); Microscopic, Urine URINE MICROSCOPIC (MICROSCOPIC)
[2025-03-02 22:11] LABS: Color,Urine YELLOW (Yellow); Glucose,Urine (UA) Negative (Negative); Ketones,Urine 2+ (Negative); Leukocyte Esterase,Urine Negative (Negative); PH,Urine 5.0 (5.0-8.5); Protein,Urine 1+ (Negative); Specific Gravity, Urine >= 1.030 (1.005-1.030); Urobilinogen,Urine 1.0 EU/dl (0.2)
--- NOTE | 2025-03-02 22:11 | ECG_ITS ---
APPROVED REPORT Exam: Resting ECG HR:97 bpm ECG Measurements Heart Rate 97 AXES HI 150 P 69 QRSd 90 QRS 3 QT 345 T 65 QTc 399 Conclusion SINUS RHYTHM NORMAL ECG UNCONFIRMED REPORT Normal sinus rhythm with no ST elevation or depression. Electronically signed by : JORGE MARIN, 03/03/2025 15:43:16
[2025-03-02 22:12] LABS: Hematocrit 40.4 % (37.0-47.0); Hemoglobin 14.7 g/dL (12.2-16.2); Immature Granulocytes % 0.2 %; Mean Corpuscular HGB Conc 36.4 g/dL (31.8-35.4); Mean Corpuscular Hemoglobin 31.1 pg (27.0-31.2); Mean Corpuscular Volume 85.6 fl (81-99); Nucleated Red Blood Cells % 0 %; Platelet Count 244 K/mm3 (142-424); Red Blood Count 4.72 M/mm3 (4.20-5.40); Red Cell Distribution Width-SD 40.0 fL; White Blood Count 10.0 K/mm3 (4.8-10.8)
[2025-03-02 22:24] LABS: Albumin Level 4.7 g/dl (3.5-5.0); Chloride 103 mmol/L (98-107); Potassium 3.8 mmoL/L (3.5-5.1); Sodium 139 mmol/L (136-145)
[2025-03-02 22:25] LABS: Bilirubin,Urine Negative (Negative)
[2025-03-02 22:27] LABS: Alanine Aminotransferase 19 U/L (12-78); Albumin/Globulin Ratio 1.5 (1.1-1.8); Alkaline Phosphatase 66 U/L (38-126); Anion Gap 19.8 mEq/L (5-15); Aspartate Amino Transferase 43 U/L (14-36); Bilirubin,Total 0.9 mg/dl (0.2-1.3); Blood Urea Nitrogen 11 mg/dl (7-17); Calcium 10.3 mg/dl (8.4-10.2); Carbon Dioxide 20 mmol/L (22.0-30.0); Creatinine Clearance Estimated 115 mL/min (50-200); Creatinine,Serum 0.70 mg/dl (0.52-1.04); Estimated Glomerular Filt Rate 95 ml/min (>60); GFR (African American) 115 ML/MIN (>60); Globulin 3.1 g/dL (1.3-3.2); Glucose 103 mg/dl (74-100); Lipase 79 U/L (23-300); Total Protein,Serum 7.8 g/dl (6.3-8.2)
[2025-03-02 22:28] LABS: HCG Qualitative, Serum Negative (Negative)
[2025-03-02 22:57] LABS: RBC,Urine Occasional #/hpf (0-3)
[2025-03-02 22:58] LABS: Bacteria,Urine 3+ /lpf; Calcium Oxalate Crystals,Urine 1+ /lpf; Mucus,Urine 4+ /lpf
[2025-03-03 00:54] VITALS: BP 132/87; PULSE 78; RESP 20; TEMP 36.8; O2SAT 98
== END 2025-03-03 00:57 | disposition home or self-care (01) ==
PROVIDERS: Nurse Practitioner; Emergency Provider Student in an Organized Health Care Education/Training Program
DX: R10.84 Generalized abdominal pain (principal); R11.2 Nausea with vomiting, unspecified; F17.210 Nicotine dependence, cigarettes, uncomplicated; F12.90 Cannabis use, unspecified, uncomplicated
CPT/HCPCS: 80053; 81001; 83605; 83690; 84703; 85025; 87086; 87636; 93005; 96361; 96374; 96375; 99284; J1200; J1790; J7120

== ENCOUNTER 2025-04-02 11:40 | Outpatient (CLI) | payer MEDICARE, MEDICAID, SELFPAY ==
--- OUTSIDE RECORDS SUMMARY | 2025-03-03 11:14 | XMS_ITS | Encounter Summary ---
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 Encounter Details Date Type Department Care Team (Late st Contact Info) Description 03/03/2025 11:14 AM EDT - 03/03/2025 1:27 PM EDT [facility] [address] [place] [id number] Michael Jo MD [address] [place] [address] Abdominal pain, unspecified abdominal location (Primary Dx); Nausea and vomiting, unspecified vomiting type Discharge Disposition: Home or Self Care Social [...] Date Recorded PHQ-2 Total Score 0 10/29/2022 [facility] [place] of Occupat ional Health - Occupational Stress [...] Sign Reading Time Taken Comments Blood Pressure 136/78 03/03/2025 1:25 PM EDT Pulse 89 03/03/2025 1:25 PM EDT Temperature 36.7 C (98 F) 03/03/2025 1:25 PM EDT Respiratory Rate 16 03/03/2025 1:25 PM EDT Oxygen Saturation 100% 03/03/2025 1:25 PM EDT Inhaled Oxygen Concentration - - Weight 65.9 kg (145 lb 6 oz) 03/03/2025 11:18 AM EDT Height 154.9 cm (5' 1 ) 03/03/2025 11:18 AM EDT Body Mass Index 27.47 03/03/2025 11:18 AM EDT documented in this encounter Functional Status [...] 10:18 AM STEPHANIET Yvonne Griffin MA * Does this person [...] Answer Date of Assessment Author No Risk 03/03/2025 11:14 AM EDT Adebayo Dewitt RN * [place] Suicide Severity Rating Scale (Q shift for moderate and high) Question Answer Date of Assessment Author 1. In the past month, have y ou wished you were or wished you could go to sleep and not wake up? 0 03/03/2025 11:14 AM STEPHANIET Zeeshan Dewitt RN 2. In the past month, have y ou actually had any thoughts of killing yourself? (If no, skip to question 6) 0 03/03/2025 11:14 AM ED T Radha Dewitt, ERI 6. Have you ever done anythi ng, started to do anything, or prepared to do anything to end your life? 0 03/03/2025 11:14 AM EDT Radha East RN documented as of this encounter Mental Status * Because of a physical, mental or emotional condition, does this person have serious difficulty concentrating, remembering or making decisions? Answer Entry Date Author No 10/29/2022 10:18 AM STEPHANIET Yvonne Griffin MA documented in this encounter Discharge Instructions * Attachments The following attachments cannot be sent through Care Everywhere. * Nausea and vomiting in adults (Gibraltarian) * Abdominal pain (Gibraltarian) * Urinary tract infection ??? Discharge instructions (Gibraltarian) documented in this encounter Medications at Time of Discharge albuterol-ipratr opium (DUO-NEB) 0.5 mg-3 mg(2.5 mg base)/3 mL Inhl Solution for NebulizationIndi cations:Bronchit is Take 3 mL by nebulization 2 times daily. 30 Each 07/17/2023 busPIRone (BUSPAR) 10 mg Oral Tablet Take 2 Tablets by mouth 3 times daily. 180 Tablet 09/21/2022 fluticasone propionate (FLONASE) 50 mcg/actuation Nasl Garwood, SuspensionIndica tions:Middle ear effusion, bilateral SHAKE LIQUID [...] by mouth daily. 30 Tablet 1 07/08/2022 nitrofurantoin, macrocrystal-mon ohydrate, (MACROBID) 100 mg Oral Capsule Take 1 Capsule by mouth 2 times daily for 7 days. 14 Capsule 03/03/2025 5 ondansetron (ZOFRAN-ODT) 4 mg Oral Tablet, Rapid Dissolve Dissolve 1 Tablet by mouth every 8 hours as needed for Nausea for up to 4 days. 12 Tablet 03/03/2025 5 documented as of this encounter Ordered Prescriptions Prescription Sig Dispense Quantity Refills Last Filled Start Date End Date ondansetron (ZOFRAN-ODT) 4 mg Oral Tablet, Rapid Dissolve Dissolve 1 Tablet by mouth every 8 hours as needed for Nausea for up to 4 days. 12 Tablet 03/03/2025 5 nitrofurantoin, macrocrystal-monoh ydrate, (MACROBID) 100 mg Oral Capsule Take 1 Capsule by mouth 2 times daily for 7 days. 14 Capsule 03/03/2025 5 documented in this encounter Discharge Disposition Disposition Code Departure Means Destination Comment s Home or Self [facility] documented in this encounter ED Notes * Michael Jo MD - 03/03/2025 11:12 AM EDT Chief Complaint Patient presents with Abdominal Pain Pt to ED c/o generalized abdominal pain with nausea and vomiting x4 days. This is a 34-year-old female presenting today for evaluation of abdominal pain, nausea and vomiting. The patient reports symptoms for 4 to 5 days. She was seen at another hospital and she was told itmay be related to her marijuana use. She was concerned that she could go through marijuana withdrawal and began smoking again. She reports frequent nausea and vomiting. Reports diffuse abdominal disco mfort. Denies diarrhea, blood in stool, fever. She does endorse frequent marijuana use regularly. Abdominal Pain Patient History Allergies Allergen Reactions Sertraline Anaphylaxis, Other (See Comments) and Shortness Of Breath Shellfish Containing Products Anaphylaxis Hydromorphone Itching SOA, Itching, anxiety [place] Pollen Other (See Comments) eyes itchy Gadolinium-Containing Contrast Media Hives Iodine Hives Home Medications: Prior to Admission medications Medication Sig Start Date End Date Last Dose Authorizing Provider albuterol-ipratropium (DUO-NEB) 0.5 mg-3 mg(2.5 mg base)/3 mL Inhl Solution for Nebulization Take 3mL by nebulization 2 times daily. 07/17/23 Nadya Carreon, ALEXI busPIRone (BUSPAR) 10 mg Oral Tablet Take 2 Tablets by mouth 3 times daily. 09/21/22 Ilana Grayson APRN fluticasone propionate (FLONASE) 50 mcg/actuation Nasl Gar[place], Suspension SHAKE LIQUID AND USE 1 SPRAY [...] History: reports that she quit smoking about 4 years ago. Her smoking use included cigarettes. She started smoking about 15 years ago. She has a 16.5 pack-year smoking history. Her smokeless tobacco use includes chew. She reports that she does not currently use alcohol. She reports current drug use. Drug: Marijuana. She reports being sexually active and [...] LIGATION Review of Systems Review of Systems Gastrointestinal: Positive for abdominal pain. All other systems reviewed and are negative. Physical Exam Blood pressure 141/89, pulse 94, temperature 97.3 ??F (36.3 ??C), temperature source Oral, resp. rate 16, height 5' 1 (1.549 m), weight 145 lb 6 oz (65.9 kg), SpO2 97%, not currently . Physical Exam Constitutional: Comments: General: Awake, alert, no acute distress Head: Normocephalic, atraumatic HEENT: Conjunctiva clear, mucosa is moist Cardiac: Normal rate, regular rhythm Pulmonary: Normal respiratory effort, equal breath sounds bilaterally, clear to auscultation bilaterally Abdominal: Soft, nondistended. Patient reports pain with palpation diffusely. No focal point tenderness, rigidity, guarding, or rebound tenderness Musculoskeletal: no deformities, no noted effusions Neuro: Awake, alert, moving all 4 extremities spontaneously Procedures Results for orders placed or performed during the hospital encounter of 03/03/25 CT ABDOMEN PELVIS WO ORAL OR IV CONTRAST Narrative CT ABDOMEN AND PELVIS WITHOUT IV OR ORAL CONTRAST, 03/03/2025 12:44 PM CLINICAL HISTORY: -abdominal pain, nausea and vomiting COMPARISON: Chest CT November 27, 2020. PROCEDURE COMMENTS: Noncontrast multidetector CT examination of the abdomen and pelvis without IV or oral contrast per protocol. Multiplanar reconstructions. FINDINGS: LOWER THORAX: There is an incompletely assessed right infrahilar soft tissue masslike opacity measuring 3.3 cm with areas of internal calcification, this was seen on the prior CT from November 2020. Previously identified right lower lobe atelectasis appears resolved. Areas of bronchiectasis with parenchymal fibrosis within the right middle and right lower lobe incompletely assessed however seen on the prior study as well. ABDOMEN AND PELVIS: No focal hepatic lesion. Gallbladder is normal. Calcified granulomas are present. Pancreas and adrenal glands are normal. The unenhanced kidneys are without stone or hydroureteronephrosis. Urinary bladder is normal. There are no dilated bowel loops. No evidence of wall thickening or free air. The appendix is not identified. Abdominal aorta is normal course and caliber. No abdominal or pelvic mass lesion, fluid collection, no lymphadenopathy. No acute osseous lesion identified. Impression 1. No acute process within the abdomen or pelvis. 2. Incidental findings as above. - Note: Radiology results need to be interpreted within a comprehensive clinical context. If you have questions about the radiology report, please contact the office of the ordering clinician. UA W/REFLEX TO CULTURE Specimen: Urine, Clean Catch Narrative The following orders were created for panel order UA W/REFLEX TO CULTURE. Procedure Abnormality Status --------- ------ URINALYSIS REFLEX[[id number]] Abnormal Final result EXTRA ALVAREZ URINE CX[[id number]] Final result Please view results for these tests on the individual orders. URINALYSIS REFLEX Result Value Ref Range UA Color Yellow UA Appear Clear Clear UA Glucose Negative Negative mg/dL UA Ketones >=80 (A) Negative mg/dL UA Blood Negative Negative UA pH 6.0 5.0 - 8.0 pH UA Protein 30 (A) Negative mg/dL UA Urobilinogen 1.0 <=1 mg/dL UA Bili UA Nitrite Negative Negative UA Leuk Est Negative Negative UA Spec Grav >=1.030 1.001 - 1.035 no units UA WBC 0 0 - 4 /HPF UA RBC 0 0 - 3 /HPF UA Squam Epi Rare /LPF UA Mucus 1+ /LPF UA Bacteria 2+ (A) Negative /HPF CBC WITH DIFF Result Value Ref Range WBC 7.0 3.7 - 10.3 x10(3)/mcL RBC 4.48 3.90 - 5.20 x10(6)/mcL Hgb 14.0 11.2 - 15.7 g/dL Hct 40.0 34.0 - 45.0 % MCV 89.3 80.0 - 100.0 fL MCH 31.3 26.0 - 34.0 pg MCHC 35.0 30.7 - 35.5 g/dL RDW 13.0 <=14.9 % Platelet 214 155 - 369 x10(3)/mcL MPV 9.2 8.8 - 12.5 fL Neut Percent 75.6 % Imm Gran% 0.1 % Lymph Percent 16.4 % [place] Percent 6.8 % Eos Percent 0.7 % Baso Percent 0.4 % Neut # 5.3 1.6 - 6.1 x10(3)/mcL IMMGRAN# 0.0 0.0 - 0.1 x10(3)/mcL Lymph # 1.1 (L) 1.2 - 3.9 x10(3)/mcL [place] # 0.5 0.3 - 0.9 x10(3)/mcL Eos# 0.1 0.0 - 0.5 x10(3)/mcL Baso # 0.0 0.0 - 0.1 x10(3)/mcL COMPREHENSIVE METABOLIC PANEL Result Value Ref Range Sodium 141 136 - 145 mmol/L Potassium 4.2 3.5 - 5.0 mmol/L Chloride 102 98 - 107 mmol/L Total CO2 23 22 - 29 mmol/L Anion Gap 16 7 - 16 mmol/L Calcium 10.0 8.6 - 10.4 mg/dL Glucose Lvl 101 (H) 70 - 99 mg/dL BUN 11 6 - 20 mg/dL Creatinine 0.75 0.51 - 1.30 mg/dL Albumin 4.4 3.5 - 5.2 gm/dL Total Protein 7.4 6.4 - 8.3 gm/dL Bili Total 0.5 0.2 - 1.3 mg/dL ALT 19 <=41 U/L AST 35 <=40 U/L Alk Phos 63 36 - 123 U/L eGFR (CKD-EPIcr 2020) 105 >=60 mL/min/1.73 m2 LIPASE LEVEL Result Value Ref Range Lipase Lvl 22 13 - 60 U/L HUMAN CHORIONIC GONADOTROPIN QUANTITATIVE Result Value Ref Range Hcg Quant <1 <5 mIU/mL Narrative Female (non-): 0-4.9 mIU/mL Female (postmenopausal): 0-8.1 mIU/mL Indeterminate values for (e.g., 5-25 mIU/mL) may be confirmed with a repeat test in 48-72hours. Values in should double every 2-3 days for the first six weeks. Ingestion of jv doses of biotin (>5 mg/day) taken within 8 hours of drawing blood sample can interfere with this immunoassay test. Critical Care time MDM Medical Decision Making 34-year-old female presents today with nausea vomiting and diffuse abdominal pain. She does endorsefrequent marijuana use at home. She reports a reassuring workup recently and she was told she may be suffering from cannabinoid hyperemesis syndrome. She began smoking again and symptoms worsened. On my exam she is in no acute distress. Her abdomen is soft. She reports pain with palpation, but there is no focal point tenderness or signs of acute peritonitis. IV access will be established. She will be given Reglan and IV fluids. Labs and imaging have been ordered to evaluate for emergency Labs: No leukocytosis. Hemoglobin is 14.0. Platelet count 214. Complete metabolic panel without acute abnormality requiring intervention. Lipase is within normal limits. test is undetectable. There is bacteria in the urine and urine culture will be sent for monitoring. Patient be started on Macrobid. CT scan: No acute process in the abdomen or pelvis. The patient does have previously assessed infrahilar masslike opacity on the right side with internal calcification. This has been seen on many prior imaging studies. The patient states she is aware of this finding related to her histoplasmosis and she she has plans to follow up with pulmonology for ongoing management of this finding in relationto her history of histoplasmosis. Granulomas are present in the abdomen. No hydronephrosis. No dilated bowel loops. No wall thickening or free air. No lymphadenopathy. No abnormal mass or fluid collection. On follow, the patient states she is feeling much improved after IV fluids and medications. We did discuss how her frequent marijuana use may be contributing to her symptoms. She will be given antibiotics for potentially a mild associate UTI based on urinalysis, but I do not believe she is suffering from an ascending infection or sepsis. She will be sent home with Zofran to use as needed and I recommend she follow-up with her doctors as an outpatient. Return precautions were reviewed at bedsideand about return to ER for any worsening of symptoms, dehydration, or any other concerning medical issue. Problems Addressed: Abdominal pain, unspecified abdominal location: complicated acute illness or injury Nausea and vomiting, unspecified vomiting type: complicated acute illness or injury Amount and/or Complexity of Data Reviewed Labs: ordered. Radiology: ordered. Risk OTC drugs. Prescription drug management. This chart was completed using voice recognition technology and may contain unintended errors Michael Jo MD 03/03/25 1317 Michael Jo MD 03/03/25 1321 documented in this encounter Plan of Treatment Not on file documented as of this encounter Goals Goal Patient Goal Type Associated Problems Recent Progress Patient-Stated? Author Maintain a healthy diet, exercise regularly and maintain an ideal body weight General No Trudy Winkler RMA Stay Tobacco Free Lifestyle Trudy Roche RMA documented as of this encounter Procedures Procedure Name Priority Date/Time Associated Diagnosis Comments CT ABDOMEN PELVIS WO ORAL OR IV CONTRAST STAT 03/03/2025 12:44 PM EDT CBC WITH DIFF STAT 03/03/2025 11:58 AM EDT HUMAN CHORIONIC GONADOTROPIN QUANTITATIVE STAT 03/03/2025 11:58 AM EDT LIPASE LEVEL STAT 03/03/2025 11:58 AM EDT COMPREHENSIVE METABOLIC PANEL STAT 03/03/2025 11:58 AM EDT SALINE LOCK IV STAT 03/03/2025 11:52 AM EDT URINALYSIS REFLEX STAT 03/03/2025 11: 44 AM EDT UA W/REFLEX TO CULTURE STAT 11:44 AM EDT EXTRA ALVAREZ URINE CX STAT 03/03/2025 1 1:44 AM EDT documented in this encounter Results * CT ABDOMEN PELVIS WO ORAL OR IV CONTRAST (03/03/2025 12:44 PM EDT) Anatomical Region Laterality Modality Abdomen, Pelvis Computed Tomogra phy 03/03/2025 12:4 4 PM EDT Impressions 03/03/2025 12:57 PM EDT 1. No acute process within the abdomen or pelvis. 2. Incidental findings as above. - Note: Radiology results need to be interpreted within a comprehensive clinical context. If you have questions about the radiology report, please contact the office of the ordering clinician. Narrative 03/03/2025 12:[address] ABDOMEN AND PELVIS WITHOUT IV OR ORAL CONTRAST, 03/03/2025 12:44 PM CLINICAL HISTORY: -abdominal pain, nausea and vomiting COMPARISON: Chest CT November 27, 2020. PROCEDURE COMMENTS: Noncontrast multidetector CT examination of the abdomen and pelvis without IV or oral contrast per protocol. Multiplanar reconstructions. FINDINGS: LOWER THORAX: There is an incompletely assessed right infrahilar soft tissue masslike opacity measuring 3.3 cm with areas of internal calcification, this was seen on the prior CT from November 2020. Previously identified right lower lobe atelectasis appears resolved. Areas of bronchiectasis with parenchymal fibrosis within the right middle and right lower lobe incompletely assessed however seen on the prior study as well. ABDOMEN AND PELVIS: No focal hepatic lesion. Gallbladder is normal. Calcified granulomas are present. Pancreas and adrenal glands are normal. The unenhanced kidneys are without stone or hydroureteronephrosis. Urinary bladder is normal. There are no dilated bowel loops. No evidence of wall thickening or free air. The appendix is not identified. Abdominal aorta is normal course and caliber. No abdominal or pelvic mass lesion, fluid collection, no lymphadenopathy. No acute osseous lesion identified. Procedure Note Valerio Delatorre MD - 03/03/2025 CT ABDOMEN AND PELVIS WITHOUT IV OR ORAL CONTRAST, 03/03/2025 12:44 PM CLINICAL HISTORY: -abdominal pain, nausea and vomiting COMPARISON: Chest CT November 27, 2020. PROCEDURE COMMENTS: Noncontrast multidetector CT examination of theabdomen and pelvis without IV or oral contrast per protocol. Multiplanarreconstructions. FINDINGS: LOWER THORAX: There is an incompletely assessed right infrahilar softtissue masslike opacity measuring 3.3 cm with areas of internal calcification,this was seen on the prior CT from November 2020. Previously identified right lowerlobe atelectasis appears resolved. Areas of bronchiectasis with parenchymalfibrosis within the right middle and right lower lobe incompletely assessed howeverseen on the prior study as well. ABDOMEN AND PELVIS: No focal hepatic lesion. Gallbladder is normal.Calcified granulomas are present. Pancreas and adrenal glands are normal. Theunenhanced kidneys are without stone or hydroureteronephrosis. Urinary bladder isnormal. There are no dilated bowel loops. No evidence of wall thickening or freeair. The appendix is not identified. Abdominal aorta is normal course andcaliber. No abdominal or pelvic mass lesion, fluid collection, nolymphadenopathy. No acute osseous lesion identified. IMPRESSION: 1. No acute process within the abdomen or pelvis. 2. Incidental findings as above. - Note: Radiology results need to be interpreted within a comprehensiveclinical context. If you have questions about the radiology report, please contactthe office of the ordering clinician. us Michael Jo MD [facility] [place] Final Result * HUMAN CHORIONIC GONADOTROPIN QUANTITATIVE (03/03/2025 11:58 AM EDT) [facility] Hcg Quant <1 <5 mIU/mL 03/03/2025 12:31 PM EDT [facility] Blood VENOUS BLOOD / Unknown Venipuncture / Unknown 03/03/2025 11:58 AM EDT 03/03/2025 12:02 PM EDT Narrative [facility] - 03/03/2025 12:31 PM EDT Female (non-): 0-4.9 mIU/mL Female (postmenopausal): 0-8.1 mIU/mL Indeterminate values for (e.g., 5-25 mIU/mL) may be confirmed with a repeat test in 48-72 hours. Values in should double every 2-3 days for the first six weeks. Ingestion of jv doses of biotin (>5 mg/day) taken within 8 hours of drawing blood sample can interfere with this immunoassay test. Michael Jo MD CHEMISTRY ORDERABLES Final Res ult Performing Organization Address City/[facility] Co de Phone Number [facility] [address] [place] [address] * LIPASE LEVEL (03/03/2025 11:58 AM EDT) [facility] Lipase Lvl 22 13 - 60 U/L 03/03/2025 12:44 PM EDT [facility] Blood VENOUS BLOOD / Unknown Venipuncture / Unknown 03/03/2025 11:58 AM EDT 03/03/2025 12:02 PM EDT Michael Jo MD CHEMISTRY ORDERABLES Final Res ult Performing Organization Address City/[facility] Co de Phone Number [facility] [address] [email or web address] [address] * (ABNORMAL) COMPREHENSIVE METABOLIC PANEL (03/03/2025 11:58 AM EDT) [facility] Sodium 141 136 - 145 mmol/L 03/03/2025 12:44 PM EDT [facility] Potassium 4.2 3.5 - 5.0 mmol/L 03/03/2025 12:44 PM EDT [facility] Chloride 102 98 - 107 mmol/L 03/03/2025 12:44 PM EDT [facility] Total CO2 23 22 - 29 mmol/L 03/03/2025 12:44 PM EDT [facility] Anion Gap 16 7 - 16 mmol/L 03/03/2025 12:44 PM EDT [facility] Calcium 10.0 8.6 - 10.4 mg/dL 03/03/2025 12:44 PM EDT [facility] Glucose Lvl 101(H) 70 - 99 mg/dL 03/03/2025 12:44 PM EDT [facility] BUN 11 6 - 20 mg/dL 03/03/2025 12:44 PM EDT [facility] Creatinine 0.75 0.51 - 1.30 mg/dL 03/03/2025 12:44 PM EDT [facility] Albumin 4.4 3.5 - 5.2 gm/dL 03/03/2025 12:44 PM EDT [facility] Total Protein 7.4 6.4 - 8.3 gm/dL 03/03/2025 12:44 PM EDT [facility] Bili Total 0.5 0.2 - 1.3 mg/dL 03/03/2025 12:44 PM EDT [facility] ALT 19 <=41 U/L 03/03/2025 12:44 PM EDT [facility] AST 35 <=40 U/L 03/03/2025 12:44 PM EDT [facility] Alk Phos 63 36 - 123 U/L 03/03/2025 12:44 PM EDT [facility] eGFR (CKD-EPIcr 2020) 105 >=60 mL/min/1.7 3 m2 03/03/2025 12:44 PM EDT [facility] Comment:Estimated GFR was ca lculated using the CKD-EPIcr (2020) equation refit without race. The equation is recommended by the National Kid[employer] - [place] [employer] of Nephrology Task Force. Blood VENOUS BLOOD / Unknown Venipuncture / Unknown 03/03/2025 11:58 AM EDT 03/03/2025 12:02 PM EDT us Michael Jo MD CHEMISTRY ORDERABLES Final Res ult [facility] [address] [place] [address] * (ABNORMAL) CBC WITH DIFF (03/03/2025 11:58 AM EDT) WBC 7.0 3.7 - 10.3 x10(3)/mcL 03/03/2025 12:04 PM EDT [facility] RBC 4.48 3.90 - 5.20 x10(6)/mcL 03/03/2025 12:04 PM EDT [facility] Hgb 14.0 11.2 - 15.7 g/dL 03/03/2025 12:04 PM EDT [facility] Hct 40.0 34.0 - 45.0 % 03/03/2025 12:04 PM EDT [facility] MCV 89.3 80.0 - 100.0 fL 03/03/2025 12:04 PM EDT [facility] MCH 31.3 26.0 - 34.0 pg 03/03/2025 12:04 PM EDT [facility] MCHC 35.0 30.7 - 35.5 g/dL 03/03/2025 12:04 PM EDT [facility] RDW 13.0 <=14.9 % 03/03/2025 12:04 PM EDT [facility] Platelet 214 155 - 369 x10(3)/mcL 03/03/2025 12:04 PM EDT [facility] MPV 9.2 8.8 - 12.5 fL 03/03/2025 12:04 PM EDT [facility] Neut Percent 75.6 % 03/03/2025 12:04 PM EDT [facility] Comment:Neutrophils equals s egs plus bands Imm Gran% 0.1 % 03/03/2025 12:04 PM EDT [facility] Comment:Automated count of m etamyelocytes, myelocytes and promyelocytes. Lymph Percent 16.4 % 03/03/2025 12:04 PM EDT [facility] [place] Percent 6.8 % 03/03/2025 12:04 PM EDT [facility] Eos Percent 0.7 % 03/03/2025 12:04 PM EDT [facility] Baso Percent 0.4 % 03/03/2025 12:04 PM EDT [facility] Neut # 5.3 1.6 - 6.1 x10(3)/[facility] 03/03/2025 12:04 PM EDT [facility] Comment:Neutrophils equals s egs plus bands IMMGRAN# 0.0 0.0 - 0.1 x10(3)/[facility] 03/03/2025 12:04 PM EDT [facility] Comment:Automated count of m etamyelocytes, myelocytes and promyelocytes. An absolute IG <0.1 is reported as 0.0. Lymph # 1.1(L) 1.2 - 3.9 x10(3)/[facility] 03/03/2025 12:04 PM EDT [facility] [place] # 0.5 0.3 - 0.9 x10(3)/[facility] 03/03/2025 12:04 PM EDT [facility] Eos# 0.1 0.0 - 0.5 x10(3)/[facility] 03/03/2025 12:04 PM EDT [facility] Baso # 0.0 0.0 - 0.1 x10(3)/[facility] 03/03/2025 12:04 PM EDT [facility] Blood VENOUS BLOOD / Unknown Venipuncture / Unknown 03/03/2025 11:58 AM EDT 03/03/2025 12:02 PM EDT us Michael Jo MD HEMATOLOGY ORDERABLES Final Re sult [facility] [address] [place] [address] * EXTRA ALVAREZ URINE CX (03/03/2025 11:44 AM EDT) Urine STRUCTURE OF URINARY TRACT PROPER / Unknown 03/03/2025 11:44 AM EDT 03/03/2025 11:49 AM EDT us Michael Jo MD MICROBIOLOGY - GENERAL ORDERAB LES Final Result [facility] [address] [place] [address] * (ABNORMAL) URINALYSIS REFLEX (03/03/2025 11:44 AM EDT) UA Color Yellow 03/03/2025 12:01 PM EDT [facility] UA Appear Clear Clear 03/03/2025 12:01 PM EDT [facility] UA Glucose Negative Negative mg/dL 03/03/2025 12:01 PM EDT [facility] UA Ketones >=80(A) Negative mg/dL 03/03/2025 12:01 PM EDT [facility] UA Blood Negative Negative 03/03/2025 12:01 PM EDT [facility] UA pH 6.0 5.0 - 8.0 pH 03/03/2025 12:01 PM EDT [facility] UA Protein 30(A) Negative mg/dL 03/03/2025 12:01 PM EDT [facility] UA Urobilinogen 1.0 <=1 mg/dL 12:01 PM EDT [facility] UA Bili 03/03/2025 12:01 PM EDT [facility] Comment:Unable to report. Ca nnot rule out interfering substances that may yield false positive results. Consider correlation with serum bilirubin result. UA Nitrite Negative Negative 03/03/2025 12:01 PM EDT [facility] UA Leuk Est Negative Negative 03/03/2025 12:01 PM EDT [facility] UA Spec Grav >=1.030 1.001 - 1.035 no units 03/03/2025 12:01 PM EDT [facility] Comment:Reference range rafi d for random specimens only. UA WBC 0 0 - 4 /HPF 03/03/2025 12:01 PM EDT [facility] UA RBC 0 0 - 3 /HPF 03/03/2025 12:01 PM EDT [facility] UA Squam Epi Rare /LPF 03/03/2025 12:01 PM EDT [facility] UA Mucus 1+ /LPF 03/03/2025 12:01 PM EDT [facility] UA Bacteria 2+(A) Negative /HPF 03/03/2025 12:01 PM EDT [facility] Urine STRUCTURE OF URINARY TRACT PROPER / Unknown 03/03/2025 11:44 AM EDT 03/03/2025 11:49 AM EDT us Michael Jo MD URINE ORDERABLES Final Result [facility] [address] [place] [address] documented in this encounter Visit Diagnoses Diagnosis Abdominal pain, unspecified abdominal location- Primary Nausea and vomiting, unspecified vomiting type documented in this encounter Administered Medications Inactive Administered Medications - up to 1 most recent administrations Medication Order MAR Action Action Date Dose Rate Site acetaminophen (TYLENOL) tablet 650 mg 650 mg, Oral, ONCE, 1 dose, On 03/03/25 at 1200, Maximum adult dose of acetaminophen is 4000 mg from all sources in 24 hours. Given 03/03/2025 12:03 PM EDT 650 mg metoclopramide HCl (REGLAN) injection 10 mg 10 mg, Intravenous, ONCE, 1 dose, On 03/03/25 at 1200 Given 03/03/2025 12:03 PM EDT 10 mg nitrofurantoin (macrocrystal-monohydrate) (MACROBID) 100 mg capsule 100 mg 100 mg, Oral, ONCE, 1 dose, On 03/03/25 at 1330, Take with food., Reason for Therapy: Infection Suspected, Indication: Urinary Tract Infection Given 03/03/2025 1:24 PM EDT 100 mg ondansetron (ZOFRAN) injection 4 mg 4 mg, Intravenous, ONCE, 1 dose, On 03/03/25 at 1300 Given 03/03/2025 1:06 PM EDT 4 mg sodium chloride 0.9 % 1,000 mL IV bolus Intravenous, ONCE, 1 dose, On 03/03/25 at 1200, at 983.6 mL/hr IV Started 03/03/2025 12:00 PM EDT 983.6 mL/hr sodium chloride 0.9% IV line flush 50 mL 50 mL, Intravenous, at 999 mL/hr, PRN, Starting on 03/03/25 at 1150, Until 03/03/25 at 1727, Line Care, Flush with 50 mL after IVPB to insure complete administration of the dose. May use the saline infusion to back flush IVPB tubing as needed., Use this order to document priming and flushing IV line after medication administration. sodium chloride 0.9% syringe 5-10 mL 5-10 mL, Intravenous, PRN, Starting on 03/03/25 at 1150, Until 03/03/25 at 1727, Line Care, Flush with 5 mL saline pre/post IVP, and 5 mL prior to IVPB or blood product administration. Protocol for PERIPHERAL IV saline lock maintenance, flush with 3-5 mL saline syringe every 8 hours., Flush peripheral lines every 12 hours, central lines every 8 hours, and after IV medication documented in this encounter Active and Recently Administered Medications Times are shown in EDT. Scheduled Medication Order 03/01/2025 03/02/2025 03/03/2025 acetaminophen (TYLENOL) tablet 650 mg (COMPLETED) 650 mg, Oral, ONCE, 1 dose, On 03/03/25 at 1200, Maximum adult dose of acetaminophen is 4000 mg from all sources in 24 hours. 1203 (Given - Provid er: Belinda Wiggins RN) metoclopramide HCl (REGLAN) injection 10 mg (COMPLETED) 10 mg, Intravenous, ONCE, 1 dose, On 03/03/25 at 1200 1203 (Given - Provid er: Belinda Wiggins RN) nitrofurantoin (macrocrystal-monohydrate) (MACROBID) 100 mg capsule 100 mg (COMPLETED) 100 mg, Oral, ONCE, 1 dose, On 03/03/25 at 1330, Take with food., Reason for Therapy: Infection Suspected, Indication: Urinary Tract Infection 1324 (Given - Provid er: Belinda Wiggins RN) ondansetron (ZOFRAN) injection 4 mg (COMPLETED) 4 mg, Intravenous, ONCE, 1 dose, On 03/03/25 at 1300 1306 (Given - Provid er: Belinda Wiggins RN) sodium chloride 0.9 % 1,000 mL IV bolus (COMPLETED) Intravenous, ONCE, 1 dose, On 03/03/25 at 1200, at 983.6 mL/hr 1200 (IV Started - P rovider: Belinda Wiggins RN)1301 (Stopped - Provider: Belinda Wiggins RN) PRN Medication Order 03/01/2025 03/02/2025 03/03/2025 sodium chloride 0.9% IV line flush 50 mL 50 mL, Intravenous, at 999 mL/hr, PRN, Starting on 03/03/25 at 1150, Until 03/03/25 at 1727, Line Care, Flush with 50 mL after IVPB to insure complete administration of the dose. May use the saline infusion to back flush IVPB tubing as needed., Use this order to document priming and flushing IV line after medication administration. sodium chloride 0.9% syringe 5-10 mL 5-10 mL, Intravenous, PRN, Starting on 03/03/25 at 1150, Until 03/03/25 at 1727, Line Care, Flush with 5 mL saline pre/post IVP, and 5 mL prior to IVPB or blood product administration. Protocol for PERIPHERAL IV saline lock maintenance, flush with 3-5 mL saline syringe every 8 hours., Flush peripheral lines every 12 hours, central lines every 8 hours, and after IV medication documented in this encounter Orders Medications Ordered That Marcell ht Not Have Been Administered Count Last Ordered Date First Ordered Date sodium chloride 0.9% IV line flush 50 mL 1 03/03/2025 sodium chloride 0.9% syringe 5-10 mL 1 02/13 IV Count Last Ordered Date First Orde red Date SALINE LOCK IV 1 03/03/2025 documented in this encounter Care Teams Mixing Machine Feeder Relationship Specialty Start Date End Date Beronica Spencer APRN [address] [place] [address] FREDI CHARLES [address] PCP - General Nurse Practitioner-Family 08/20/20 documented as of this encounter
[2025-04-02 21:02] LABS: Hematocrit 37.6 % (37.0-47.0); Hemoglobin 13.1 g/dL (12.2-16.2); Immature Granulocytes % 0.2 %; Mean Corpuscular HGB Conc 34.8 g/dL (31.8-35.4); Mean Corpuscular Hemoglobin 31.1 pg (27.0-31.2); Mean Corpuscular Volume 89.3 fl (81-99); Nucleated Red Blood Cells % 0 %; Platelet Count 107 K/mm3 (142-424); Red Blood Count 4.21 M/mm3 (4.20-5.40); Red Cell Distribution Width-SD 42.1 fL; White Blood Count 6.6 K/mm3 (4.8-10.8)
--- OUTSIDE RECORDS SUMMARY | 2025-04-04 12:21 | XMS_ITS | Referral Summary ---
Author Organization [employer] ([place], [place], [place], [place]) Address [address] [place] [address] Care Team Providers Care Newspaper Publisher Name Role Phone Beronica Spencer Primary Care Provider [phone] Allergies Active Allergy Reactions Criticality Noted Date [...] Plan of Treatment Not on file Insurance [facility] Care Teams Newspaper Publisher Relationship Specialty Start Date End Date Beronica Spencer [address] [place] [address] PCP - General 05/09/24
--- OUTSIDE RECORDS SUMMARY | 2025-04-04 12:21 | XMS_ITS | Encounter Summary ---
Author Organization [facility] [place] [place] [address] Care Team Providers Care Production Welder Name Role Phone Beronica Spencer APRN Primary Care Provider [phone] Encounter Details Date Type Department Care Team (Latest Contact Info) Description 03/03/2025 Travel Social History Tobacco Use Types Packs/Day [...] Date Recorded PHQ-2 Total Score 0 10/29/2022 [facility] - Occupational Stress [...] of Assessment Author No 10/29/2022 10:18 AM EDYvonne Santacruz MA * Does this person have difficulty dressing or bathing? Answer Date of Assessment Author No 10/29/2022 10:18 AM Yvonne Marie MA * Because of a physical, mental or emotional condition, does this person have difficulty doing errands alone such as visiting a doctor's office or shopping? Answer Date of Assessment Author No 10/29/2022 10:18 AM EDYvonne Santacruz MA * Suicide Severity Rating Answer Date of Assessment Author No Risk 03/03/2025 11:14 AM EDT Adebayo Dewitt RN * Badger Suicide Severity Rating Scale (Q shift for [...] on filedocumented in this encounter Care Teams Production Welder Relationship Specialty Start Date End Date Beronica Spencer APRN [facility] [place] [address] PCP - General Nurse Practitioner-Family 08/20/20 documented as of this encounter
--- OUTSIDE RECORDS SUMMARY | 2025-04-04 12:21 | XMS_ITS | Clinical Summary ---
Author Organization [facility] Address [address] [place] [address] Care Team Providers Care Coin Machine Mechanic Name Role Phone Harley Faulkner MD Unavailable [phone] Harley Faulkner MD Primary Care Provider [phone] Yessenia Nicole MD Unavailable [phone] Social History Tobacco Use Types Packs/Day Years [...] Upcoming Encounters Date Type Department Care Team ([facility] st Contact Info) Description 04/04/2025 1:45 PM EDT Office Visit [facility] [address] [place] [address] Yessenia Nicole MD [address] [place] [address] Health Maintenance Due Date Last Done Comments HIV Screening 1988 Hepatitis C Screening 1990 Medicare Annual Wellness (AWV) 1988 MMR Vaccines (1 of 1 - Standard series) 1989 Varicella Vaccines (1 of 2 - 13+ 2-dose series) 2001 Hepatitis B Screening 2006 DTaP/Tdap/Td Vaccines (1 - Tdap) 12/26/2007 Hepatitis B Vaccines (1 of 3 - 19+ 3-dose series) 12/26/2007 Pneumococcal Vaccine (1 of 2 - PCV) 12/26/2007 HPV Vaccines (1 - 3-dose SCDM series) 12/26/2015 HPV/Cotest 2018 Depression Risk Screening 06/14/2024 SDOH [...] age to complete this topic Hepatitis A Vaccines Aged Out No long er eligible based on patient's age to complete [...] AUTO DIFF Routine 01/05/2025 8:27 AM EDT CMP COMPREHENSIVE METABOLIC PANEL STAT 11/30/2024 10:46 PM EDT from Last 3 Months or Most Recently Relevant to Health Maintenance Results * (ABNORMAL) BCC CBC W/ AUTO DIFF (01/26/2025 9:39 AM EDT) Only the most recent of4 resultswithin the time period is included. WBC [...] SLIDE REVIEW NONE 01/26/2025 9:53 AM EDT [facility] HE Rem 2.0 Blood 01/26/2025 9:39 AM EDT 01/26/2025 9:44 AM EDT [facility] - 01/26/2025 9:53 AM EDT Performed by [facility], [address] [place] [address], [place] [address] us Chhaya Corbin MD LAB BLOOD ORDERABLES Final Re sult [facility] [address] [place] [address], [facility] HE Rem 2.0 Pathology Department [address] [place] [address] * (ABNORMAL) AUTODIFF (01/26/2025 9:39 AM EDT) Only the most recent of4 resultswithin the time period is included. NEUT [...] 9:39 AM EDT 01/26/2025 9:44 AM EDT [facility] - 01/26/2025 9:53 AM EDT Ordered by Discern Expert. [id number] Performed by [facility], [address] [place] [address], [place] [address] us Chhaya Corbin MD LAB BLOOD ORDERABLES Final Re sult [facility] [address] [place] [address], [facility] HE Rem 2.0 Pathology Department [address] [place] [address] * (ABNORMAL) RBC MORPHOLOGY (01/19/2025 10:53 AM EDT) Pathologist [facility] RBC MORPHOLOGY SEE REPORT(A) Normal 01/19/2025 11:50 AM EDT [facility] HE Rem 2.[address] ESTIMATE DECREASED (A) 01/19/2025 11:50 AM EDT [facility] HE Rem 2.0 ANISOCYTOSIS 1+ 01/19/2025 11:50 AM EDT [facility] HE Rem 2.0 Blood 01/19/2025 10:5 3 AM EDT 01/19/2025 10:54 AM EDT [facility] - 01/19/2025 11:50 AM EDT 01/19 tx Ordered by Discern Expert. Performed by [facility], [address] [place] [address] Chhaya Corbin MD LAB BLOOD ORDERABLES Final Re sult Performing Organization Address City/[facility]/ZIP Co de Phone Number [facility] [address] [place] [address], [facility] HE Rem 2.0 Pathology Department [address] [place] [address] * IRON, TIBC AND FERRITIN PANEL (01/05/2025 8:27 AM EDT) Pathologist [facility] Iron 92 50 - 212 ug/dL 01/05/2025 [...] 8:27 AM EDT 01/05/2025 8:39 AM EDT [facility] - 01/05/2025 9:07 AM EDT 01/05 C1 Ritux - has hep panel Performed by [facility], [address] [place] [address] Chhaya Corbin MD LAB BLOOD ORDERABLES Final Re sult Performing Organization Address [facility] Co de Phone Number [facility] [address] [place] [address], [facility] CH Rem 2.0 Pathology Department [address] [place] [address] * Ferritin (01/05/2025 8:27 AM EDT) Ferritin 16.0 11.0 - 306.8 ng/mL 01/05/2025 9:17 AM EDT [facility] CH Rem 2.0 Blood 01/05/2025 8:27 AM EDT 01/05/2025 8:39 AM EDT [facility] - 01/05/2025 9:17 AM EDT 01/05 Ritux - has hep panel Performed by [facility], [address] [place] [address] Chhaya Corbin MD LAB BLOOD ORDERABLES Final Re sult Performing Organization Address [facility] Co de Phone Number [facility] [address] [place] [address], [facility] CH Rem 2.0 Pathology Department [address] [place] [address] * (ABNORMAL) Comprehensive metabolic panel (11/30/2024 10:46 PM EDT) Pathologist [facility] Sodium 140 136 - 145 mmol/L 11/30/2024 11:29 PM EDT [facility] Remisol 2.0 SS Potassium 4.0 3.5 - 5.1 mmol/L 11/30/2024 11:29 PM EDT [facility] Remisol 2.0 SS Chloride 104 98 - 110 mmol/L 11/30/2024 11:29 PM EDT [facility] Remisol 2.0 SS CO2 30 21 - 31 mmol/L 11/30/2024 11:29 PM EDT [facility] Remisol 2.0 SS Anion Gap 6.0 2.0 - 11.0 11/30/2024 11:29 PM EDT [facility] Remisol 2.0 SS Calcium 9.0 8.6 - 10.2 mg/dL 11/30/2024 11:29 PM EDT [facility] Remisol 2.0 SS Glucose 129(H) 74 - 109 mg/dL 11/30/2024 11:29 PM EDT [facility] Remisol 2.0 SS BUN 16 7 - 25 mg/dL 11/30/2024 11:29 PM EDT [facility] Remisol 2.0 SS Creatinine 0.80 0.60 - 1.20 mg/dL 11/30/2024 11:29 PM EDT [facility] Remisol 2.0 SS BUN/Creatinine Ratio 20.0 6.0 - 22.0 11/30/2024 11:29 PM EDT [facility] Remisol 2.0 SS Albumin 3.8 3.5 - 5.2 Gram/dL 11/30/2024 11:29 PM EDT [facility] Remisol 2.0 SS Total Protein 7.3 6.4 - 8.9 Gram/dL 11/30/2024 11:29 PM EDT [facility] Remisol 2.0 SS A/G Ratio 1.1 1.0 - 1.7 11/30/2024 11:29 PM EDT [facility] Remisol 2.0 SS Alkaline Phosphatase 68 34 - 104 Units/Lite r 11/30/2024 11:29 PM EDT [facility] Remisol 2.0 SS ALT (SGPT) 24 <=24 Units/Lite r 11/30/2024 11:29 PM EDT [facility] Remisol 2.0 SS AST 27 13 - 39 Units/Lite r 11/30/2024 11:29 PM EDT [facility] Remisol 2.0 SS Total Bilirubin 0.4 0.3 - 1.0 mg/dL 11/30/2024 11:29 PM EDT [facility] Remisol 2.0 SS Globulin, Total 3.5 2.0 - 3.5 Gram/dL 11/30/2024 11:29 PM EDT [facility] Remisol 2.0 SS EGFR 98 >=60 mL/min/1.7 3m2 11/30/2024 11:29 PM EDT [facility] Remisol 2.0 SS Comment:eGFR calculation per formed using the CKD-EPI 2020 equation (race variable excluded) Blood 11/30/2024 10:4 6 PM EDT 11/30/2024 11:04 PM EDT Narrative [facility] - 11/30/2024 11:29 PM EDT pt has two charts, plz merge labs Performed by [facility], [address] [place] [address], [place] [address] us Timi Morley MD LAB BLOOD ORDERABLES F inal Result [facility] [address] [place] [address], [facility] CH Remisol 2.0 SS Pathology Department [address] [place] [address] from Last 3 Months or Most Recently Relevant to Health Maintenance Insurance [employer]AGE Care Teams Coin Machine Mechanic Relationship Specialty Start Date End Date Harley Faulkner MD [address] [place] [phone] PCP - General Family Medicine 03/30/25 Harley Faulkner MD [address] [place] [address] Family Medicine 03/08/20 Yessenia Nicole MD [address] [place] [address] Neurologist Neurology 03/30/25
--- OUTSIDE RECORDS SUMMARY | 2025-04-04 12:21 | XMS_ITS | Clinical Summary ---
Author Organization [facility] Address [address] [place], [place] [address] Care Team Providers Care Unemployment Insurance Hearing Officer Name Role Phone None, Physician Primary Care [...] original. The patient's chart is closed with [facility] as of 07/22/2018. [facility] Ob Dr [...] 137 - 145 mmol/L 06/12/2017 7:19 PM [facility] Potassium 4.1 3.5 - 5.1 mmol/L 06/12/2017 7:19 PM [facility] Chloride 104 98 - 107 mmol/L 06/12/2017 7:19 PM [facility] Carbon Dioxide 27 22 - 30 mmol/L 06/12/2017 7:19 PM [facility] Glucose 91 74 - 106 mg/dL 06/12/2017 7:19 PM [facility] Blood Urea Nitrogen (BUN) 14 7 - 20 mg/dL 06/12/2017 7:19 PM [facility] Creatinine-Blood 0.7 0.7 - 1.5 mg/dL 06/12/2017 7:19 PM [facility] BUN/Creatinine Ratio 20.0 RATIO 06/12/2017 7:19 PM [facility] Total Protein 6.9 6.3 - 8.2 g/dL 06/12/2017 7:19 PM [facility] Albumin 3.6 3.5 - 5.0 g/dL 06/12/2017 7:19 PM [facility] Globulin 3.3 1.5 - 4.5 g/dL 06/12/2017 7:19 PM [facility] Albumin/Globulin Ratio 1.1 1.1 - 2.5 RATIO 06/12/2017 7:19 PM [facility] Calcium 8.9 8.4 - 10.2 mg/dL 06/12/2017 7:19 PM [facility] Total Bilirubin 0.2 0.2 - 1.3 mg/dL 06/12/2017 7:19 PM [facility] AST/SGOT 28 15 - 46 U/L 06/12/2017 7:19 PM [facility] ALT/SGPT 43 13 - 69 U/L 06/12/2017 7:19 PM [facility] Alkaline Phosphatase 59 38 - 126 U/L 06/12/2017 7:19 PM [facility] Estimated GFR >60 >60 /1.73 m2 06/12/2017 7:19 PM [facility] Comment: Result only valid for [...] 06/12/2017 7:07 PM EST us Harley Ordoñez ISOTOPE HYDROLOGIST LAB BLOOD ORDERABLES Final R esult [facility] [address] [place] [address] * Hemoglobin A1C (03/15/2017 7:20 AM EDT) Hemoglobin A1C 5.3 4.3 - 5.7 % 03/15/2017 11:40 AM EDT [facility] ([id number]) Comment: Patients with conditions that shorten erythrocyte survival, such as recovery from acute blood loss, hemoltic anemia, kidney disease, or the presence of unstable hemoglobulins like HbSS, HbCC, and HbSC may yield falsely decreased HbA1c test results. Iron deficiency may yield falsely increased HbA1c test results. Estimated Average Glucose 105 mg/dL 03/15/2017 11:40 AM EDT [facility] ([id number]) Whole Blood BLOOD SPECIMEN FROM PATIENT / Unknown 03/15/2017 7:20 AM EDT 03/15/2017 7:46 AM EDT us Jarrod Francois MD LAB BLOOD ORDERABLES Final Result [facility] ([id number]) [address] [place] [address] * Pap Smear (09/29/2016 10:48 AM EDT) Pathology SPECIMEN FROM UTERINE CERVIX / Unknown 09/29/2016 10:48 AM EDT 09/29/2016 10:48 AM EDT Narrative [facility] ([facility]) - 10/06/2016 10:22 AM EDT [facility] [address] [place] [address] * Clinician: Patient Name: Accession Number: [id number] MATHISDIDI SHELLEY [id number] [facility] - Collected: BUSHRA : 1990 09/29/[address] [place] [address] Sex: F Received: [address] Chart #: 09/29/2016 [place] [address]- Reported: 10/06/2016 GYNECOLOGIC CYTOLOGY REPORT Final Report DIAGNOSIS: NEGATIVE (NO EVIDENCE OF INTRAEPITHELIAL LESION OR MALIGNANCY) ADEQUACY DESCRIPTION SCANT CELLULARITY SPECIMEN ADEQUACY: SATISFACTORY FOR INTERPRETATION: NO ENDOCERVICAL CELLS PRESENT - PATIENT SPECIMEN SOURCE: THIN PREP CERVICAL/ENDOCERVICAL MENSTRUAL STATUS: LMP: 06/02/2016 : Y Comment: Last Pap 7 years ago CPT Codes: (Tech) - 85841, x1 AUTOMATIC RIVETING MACHINE OPERATOR: DANA AC QC REVIEW : RACHANA LARSON(ASCP) [...] been analyzed by the [employer]in[employer] Imaging System ([email or web address]), an automated imaging and review system. Drew Lara M.D. - Clinical Laboratory Science Professor Teresa Faulkner M.D. - Director of Cytopathology us Lyubov Mathis ISOTOPE HYDROLOGIST PATHOLOGY/CYTOLOGY ORDERA BLES Final Result [facility] [address] [place] [address] from Last 3 Months or [...] 8:46 AM 03/09/2017 4:25 PM Care Teams Unemployment Insurance Hearing Officer Relationship Specialty Start Date End Date None, Physician PCP - General 08/18/16
--- OUTSIDE RECORDS SUMMARY | 2025-04-04 12:21 | XMS_ITS | Clinical Summary ---
Author Organization [employer] ([place], [place], [place], [place]) Address [address] [place] [address] Care Team Providers Care Well Surveying Engineer Name Role Phone Beronica Spencer Primary Care Provider [phone] Allergies Active Allergy Reactions Criticality Noted Date [...] patient's age to complete this topic Insurance [facility] Member Subscriber Plan / Payer (Ef fective 2023-Present) Name:Fely Lara Relation to Subscriber:Self Name:Fely Lara Payer ID:Not on file Group ID:[id number] Type:Not on file Address: [facility] [id number] [place] [id number] Care Teams Well Surveying Engineer Relationship Specialty Start Date End Date Beronica Spencer [address] [place] [address] PCP - General 05/09/24
--- OUTSIDE RECORDS SUMMARY | 2025-04-04 12:22 | XMS_ITS | Clinical Summary ---
Author Organization [facility] [place] Address [address] [place] [address] Phone Care Team Providers Care Pest Control Service Representative Name Role Phone SpencerElidaBeronica IGNACIO Primary Care Provider [phone] Allergies Active Allergy Reactions Criticality Noted Date Comments Gadolinium-Containing Contrast Media Hives 08/20/2020 Hydromorphone Itching Medium 06/12/2017 SOA, Itching, anxiety Iodine Hives 11/23/2018 Sertraline Anaphylaxis,Other (See Comments),Shortness Of Breath High 09/09/2016 Shellfish Containing Products Anaphylaxis High 06/26/2020 [place] Pollen Other (See Comments) Medium 10/10/2024 eyes [...] 3 Active ondansetron (ZOFRAN) 4 mg Oral TabletIndicati ons:Nausea Take 1 Tablet by mouth every 6 hours as needed for Nausea. 30 Tablet 2 3 Active fluticasone propionate (FLONASE) 50 mcg/actuation Nasl [place], SuspensionIndi cations:Middle ear effusion, bilateral SHAKE LIQUID AND USE 1 SPRAY IN EACH NOSTRIL DAILY 16 g 3 Active albuterol-ipra tropium (DUO-NEB) 0.5 mg-3 mg(2.5 mg base)/3 mL Inhl Solution for NebulizationIn dications:Bron chitis Take 3 mL by nebulization 2 times daily. 30 Each 4 Active nitrofurantoin , macrocrystal-m onohydrate, (MACROBID) 100 mg Oral Capsule Take 1 Capsule by mouth 2 times daily for 7 days. 14 Capsule 5 03/10/20 25 ondansetron (ZOFRAN-ODT) 4 mg Oral Tablet, Rapid Dissolve Dissolve 1 Tablet by mouth every 8 hours as needed for Nausea for up to 4 days. 12 Tablet 5 03/07/20 25 Active Problems Problem Noted Date Diagnosed Date [...] Encounters Date Type Department Care Team Description 03/03/2025 11:14 AM EDT - 03/03/2025 1:27 PM EDT Emergency [facility] [address] [place] [address] Michael Jo MD Abdominal pain, unspecified abdominal location (Primary Dx); Nausea and vomiting, unspecified vomiting type Discharge Disposition: Home or Self Care 03/03/2025 Travel 01/15/2025 Patient Outreach [facility] [address] [place] [address] Beronica Spencer APRN Central Patient Navigator Outreach [...] Recorded PHQ-2 Total Score 0 10/29/2022 [facility] - Occupational Stress [...] Mass Index 27.47 03/03/2025 11:18 AM EDT Plan of Treatment Health Maintenance Due Date Last Done Comments Hepatitis B Vaccine (1 of 3 - 19+ 3-dose series) 12/26/2007 HPV/Pap Cotest 2018 Pneumococcal Vaccine 0-49 (2 of 2 - PCV) 07/11/2019 07/11/2018 Annual Wellness Exam 10/30/2023 10/29/2022 Cervical Cancer Screening 08/12/2024 Pap Smear 08/12/2024 08/12/2021, 09/29/2016 COVID-19 Vaccine ( season) 2025 04/08/2021, 12/19/2020, 11/28/2020 Influenza Vaccine (#1) 2025 , 04/12/2020, 07/11/2018, Additional history exists DTaP/TDaP/Td (3 - Td or Tdap) 07/30/2030 07/30/2020, 01/01/2017 Meningococcal B Vaccine Aged Out No l [...] IV CONTRAST STAT 03/03/2025 12:44 PM EDT HUMAN CHORIONIC GONADOTROPIN QUANTITATIVE STAT 03/03/2025 11:58 AM EDT LIPASE LEVEL STAT 03/03/2025 11:58 AM EDT COMPREHENSIVE METABOLIC PANEL STAT 03/03/2025 11:58 AM EDT CBC WITH DIFF STAT 03/03/2025 11:58 AM EDT SALINE LOCK IV STAT 03/03/2025 11:52 AM EDT URINALYSIS REFLEX STAT 03/03/2025 11: 44 AM EDT UA W/REFLEX TO CULTURE STAT 03/03/2025 11:44 AM EDT EXTRA ALVAREZ URINE CX STAT 03/03/2025 1 1:44 AM EDT COUNTER PROFESSIONAL CYTOLOGY REQUEST (PAP ONLY) Routine 08/12/2021 3:21 PM EST Well woman exam with routine gynecological exam from Last 3 Months or Most Recently Relevant to Health Maintenance Results * CT ABDOMEN PELVIS WO ORAL [...] the ordering clinician. us Michael Jo MD IMG CT ORDERABLES Final Result * (ABNORMAL) CBC WITH DIFF (03/03/2025 11:58 AM EDT) [facility] WBC 7.0 3.7 - 10.3 x10(3)/mcL 03/03/2025 12:04 PM EDT [facility] RBC 4.48 3.90 - 5.20 x10(6)/mcL 03/03/2025 12:04 PM EDT [facility] Hgb 14.0 11.2 - 15.7 g/dL 03/03/2025 12:04 PM EDT [facility] Hct 40.0 34.0 - 45.0 % 03/03/2025 12:04 PM EDT [facility] MCV 89.3 80.0 - 100.0 fL 03/03/2025 12:04 PM EDT [facility] MCH 31.3 26.0 - 34.0 pg 03/03/2025 12:04 PM EDT [facility] MCHC 35.0 30.7 - 35.5 g/dL 03/03/2025 12:04 PM EDT [facility] RDW 13.0 <=14.9 % 03/03/2025 12:04 PM EDT [facility] Platelet 214 155 - 369 x10(3)/mcL 03/03/2025 12:04 PM EDT [facility] MPV 9.2 8.8 - 12.5 fL 03/03/2025 12:04 PM EDT [facility] Neut Percent 75.6 % 03/03/2025 12:04 PM EDT [facility] Comment:Neutrophils equals s egs plus bands Imm Gran% 0.1 % 03/03/2025 12:04 PM EDT [facility] Comment:Automated count of m etamyelocytes, myelocytes and promyelocytes. Lymph Percent 16.4 % 03/03/2025 12:04 PM EDT [facility] Early Percent 6.8 % 03/03/2025 12:04 PM EDT [facility] Eos Percent 0.7 % 03/03/2025 12:04 PM EDT [facility] Baso Percent 0.4 % 03/03/2025 12:04 PM EDT [facility] Neut # 5.3 1.6 - 6.1 x10(3)/[facility] 03/03/2025 12:04 PM EDT [facility] Comment:Neutrophils equals s egs plus bands IMMGRAN# 0.0 0.0 - 0.1 x10(3)/[facility] 03/03/2025 12:04 PM EDT [facility] Comment:Automated count of m etamyelocytes, myelocytes and promyelocytes. An absolute IG <0.1 is reported as 0.0. Lymph # 1.1(L) 1.2 - 3.9 x10(3)/[facility] 03/03/2025 12:04 PM EDT [facility] Early # 0.5 0.3 - 0.9 x10(3)/[facility] 03/03/2025 12:04 PM EDT [facility] Eos# 0.1 0.0 - 0.5 x10(3)/[facility] 03/03/2025 12:04 PM EDT [facility] Baso # 0.0 0.0 - 0.1 x10(3)/[facility] 03/03/2025 12:04 PM EDT [facility] Blood VENOUS BLOOD / Unknown Venipuncture / Unknown 03/03/2025 11:58 AM EDT 03/03/2025 12:02 PM EDT us Michael Jo MD HEMATOLOGY ORDERABLES Final Re sult [facility] [address] [place] [id number] * HUMAN CHORIONIC GONADOTROPIN QUANTITATIVE (03/03/2025 11:58 AM EDT) [facility] Hcg Quant <1 <5 mIU/mL 03/03/2025 12:31 PM EDT [facility] Blood VENOUS BLOOD / Unknown Venipuncture / Unknown 03/03/2025 11:58 AM EDT 03/03/2025 12:02 PM EDT Narrative [facility] - 03/03/2025 12:31 PM EDT Female [...] ORDERABLES Final Res ult Performing Organization Address [facility] de Phone Number [facility] [address] [place] [address] * LIPASE LEVEL (03/03/2025 11:58 AM EDT) Pathologist [facility] Lipase Lvl 22 13 - 60 U/L 03/03/2025 12:44 PM EDT [facility] Blood VENOUS BLOOD / Unknown Venipuncture / Unknown 03/03/2025 11:58 AM EDT 03/03/2025 12:02 PM EDT Michael Jo MD CHEMISTRY ORDERABLES Final Res ult Performing Organization Address [facility] Phone Number [facility] [address] [place], [place] [id number] * (ABNORMAL) COMPREHENSIVE METABOLIC PANEL (03/03/2025 11:58 AM EDT) Pathologist [facility] Sodium 141 136 - 145 mmol/L 03/03/2025 12:44 PM EDT [facility] Potassium 4.2 3.5 - 5.0 mmol/L 03/03/2025 12:44 PM EDT [facility] Chloride 102 98 - 107 mmol/L 03/03/2025 12:44 PM EDT [facility] Total CO2 23 22 - 29 mmol/L 03/03/2025 12:44 PM EDT [facility] Anion Gap 16 7 - 16 mmol/L 03/03/2025 12:44 PM EDT [facility] Calcium 10.0 8.6 - 10.4 mg/dL 03/03/2025 12:44 PM EDT [facility] Glucose Lvl 101(H) 70 - 99 mg/dL 03/03/2025 12:44 PM EDT [facility] BUN 11 6 - 20 mg/dL 03/03/2025 12:44 PM EDT [facility] Creatinine 0.75 0.51 - 1.30 mg/dL 03/03/2025 12:44 PM EDT [facility] Albumin 4.4 3.5 - 5.2 gm/dL 03/03/2025 12:44 PM EDT [facility] Total Protein 7.4 6.4 - 8.3 gm/dL 03/03/2025 12:44 PM EDT [facility] Bili Total 0.5 0.2 - 1.3 mg/dL 03/03/2025 12:44 PM EDT [facility] ALT 19 <=41 U/L 03/03/2025 12:44 PM EDT [facility] AST 35 <=40 U/L 03/03/2025 12:44 PM EDT [facility] Alk Phos 63 36 - 123 U/L 03/03/2025 12:44 PM EDT [facility] eGFR (CKD-EPIcr 2020) 105 >=60 mL/min/1.7 3 m2 03/03/2025 12:44 PM EDT [facility] Comment:Estimated GFR was ca lculated using the CKD-EPIcr (2020) equation refit without race. The equation is recommended by the National Kidney Foundation - [place] [employer] Neph[employer] Task Force. Blood VENOUS BLOOD / Unknown Venipuncture / Unknown 03/03/2025 11:58 AM EDT 03/03/2025 12:02 PM EDT us Michael Jo MD CHEMISTRY ORDERABLES Final Res ult [facility] [address] [place] [address] * (ABNORMAL) URINALYSIS REFLEX (03/03/2025 11:44 AM EDT) UA Color Yellow 03/03/2025 12:01 PM EDT [facility] UA Appear Clear Clear 03/03/2025 12:01 PM EDT [facility] UA Glucose Negative Negative mg/dL 03/03/2025 12:01 PM EDT [facility] UA Ketones >=80(A) Negative mg/dL 03/03/2025 12:01 PM EDT [facility] UA Blood Negative Negative 03/03/2025 12:01 PM EDT [facility] UA pH 6.0 5.0 - 8.0 pH 03/03/2025 12:01 PM EDT [facility] UA Protein 30(A) Negative mg/dL 03/03/2025 12:01 PM EDT [facility] UA Urobilinogen 1.0 <=1 mg/dL 12:01 PM EDT [facility] UA Bili 03/03/2025 12:01 PM EDT [facility] Comment:Unable to report. Ca nnot rule out interfering substances that may yield false positive results. Consider correlation with serum bilirubin result. UA Nitrite Negative Negative 03/03/2025 12:01 PM EDT [facility] UA Leuk Est Negative Negative 03/03/2025 12:01 PM EDT [facility] UA Spec Grav >=1.030 1.001 - 1.035 no units 03/03/2025 12:01 PM EDT [facility] Comment:Reference range rafi d for random specimens only. UA WBC 0 0 - 4 /HPF 03/03/2025 12:01 PM EDT [facility] UA RBC 0 0 - 3 /HPF 03/03/2025 12:01 PM EDT [facility] UA Squam Epi Rare /LPF 03/03/2025 12:01 PM EDT [facility] UA Mucus 1+ /LPF 03/03/2025 12:01 PM EDT [facility] UA Bacteria 2+(A) Negative /HPF 03/03/2025 12:01 PM EDT [facility] Urine STRUCTURE OF URINARY TRACT PROPER / Unknown 03/03/2025 11:44 AM EDT 03/03/2025 11:49 AM EDT Michael Jo MD URINE ORDERABLES Final Result Performing Organization Address [facility] Co de Phone Number [facility] [address] [place] [address] * EXTRA ALVAREZ URINE CX (03/03/2025 11:44 AM EDT) Urine STRUCTURE OF URINARY TRACT PROPER / Unknown 03/03/2025 11:44 AM EDT 03/03/2025 11:49 AM EDT Michael Jo MD MICROBIOLOGY - GENERAL ORDERAB LES Final Result Performing Organization Address [facility] Number [facility] [address] [place] [address] * COUNTER PROFESSIONAL CYTOLOGY REQUEST (PAP ONLY) (08/12/2021 3:21 PM EST) CASE REPORT Gynecologic Cytology Report Case: [id number] Authorizing Provider: Davion Alex MD Collected: 08/12/2021 1521 Ordering Location: [facility] Received: 08/12/2021 1521 First Screen: Lobo Michel CT Specimen: LIQUID-BASED PAP - CERVICAL/ENDOCERV ICAL, Cervix, Endocervical 08/13/2021 3:[address] [facility] PAP FINAL DIAGNOSIS Negative for intraepithelial lesion or malignancy 08/13/2021 3:28 PM EST [facility] at 1528 EST MICROSCOPIC DESCRIPTION Microscopic examination is performed and the findings corroborate the diagnosis. 08/13/2021 3:[address] [facility] PAP SMEAR ADEQUACY Satisfactory for evaluation 08/13/2021 3:[address] [facility] ENDOCERVICAL [facility]ONE Transformation zone present 08/13/2021 3:[address] [facility] EMBEDDED IMAGES 3:28 PM EST [facility] PAP DISCLAIMER The Pap Smear is a screening test that aids in the detection of cervical cancer and cancer precursors. Both false positive and false negative results can occur. The test should be used at regular intervals, and positive results should be confirmed before definitive therapy. Processed using the [employer]in[employer] Automated cytology screening device ([employer]). 08/13/2021 3:28 PM EST [facility] Thin Prep ENDOCERVICAL STRUCTURE / Unknown 08/12/2021 3:21 PM EST 08/12/2021 3:21 PM EST us Davion Alex MD CYTOLOGY ORDERABLES Final Re sult [facility] [address] [place] [address] from Last 3 Months or Most Recently Relevant to Health Maintenance Insurance [employer]IDENT GENERIC on file [employer] MEDICARE PPO MR Advance Directives For more information, please contact: [phone] Documents on File Type Date Recorded Patient Corporate Pilot Expl anation ADVANCE DIRECTIVE 08/26/2021 10:24 AM LW 0 09/05/2017 Care Teams Pest Control Service Representative Relationship Specialty Start Date End Date Beronica Spencer APRN [address] [place] [id number] PCP - General Nurse Practitioner-Family 08/20/20
== END 2025-04-02 23:59 ==
LOC: LAB.DROPOF 04-04 11:41
PROVIDERS: PCP Nurse Practitioner; Visit Provider Nurse Practitioner
DX: D69.3 Immune thrombocytopenic purpura (principal)
CPT/HCPCS: 85025

== ENCOUNTER 2025-04-30 12:10 | Outpatient (CLI) | payer MEDICARE, MEDICAID, SELFPAY ==
[2025-04-30 15:38] LABS: Hematocrit 36.6 % (37.0-47.0); Hemoglobin 12.3 g/dL (12.2-16.2); Immature Granulocytes % 0.2 %; Mean Corpuscular HGB Conc 33.6 g/dL (31.8-35.4); Mean Corpuscular Hemoglobin 30.4 pg (27.0-31.2); Mean Corpuscular Volume 90.6 fl (81-99); Nucleated Red Blood Cells % 0 %; Platelet Count 189 K/mm3 (142-424); Red Blood Count 4.04 M/mm3 (4.20-5.40); Red Cell Distribution Width-SD 41.1 fL; White Blood Count 6.4 K/mm3 (4.8-10.8)
[2025-04-30 16:00] LABS: Albumin Level 3.8 g/dl (3.5-5.0); Chloride 104 mmol/L (98-107); Potassium 4.1 mmoL/L (3.5-5.1); Sodium 137 mmol/L (136-145)
[2025-04-30 16:03] LABS: Albumin/Globulin Ratio 1.6 (1.1-1.8); Alkaline Phosphatase 49 U/L (38-126); Anion Gap 9.1 mEq/L (5-15); Bilirubin,Total 0.3 mg/dl (0.2-1.3); Blood Urea Nitrogen 13 mg/dl (7-17); Calcium 8.9 mg/dl (8.4-10.2); Carbon Dioxide 28 mmol/L (22.0-30.0); Creatinine,Serum 0.70 mg/dl (0.52-1.04); Estimated Glomerular Filt Rate 95 ml/min (>60); GFR (African American) 115 ML/MIN (>60); Globulin 2.4 g/dL (1.3-3.2); Glucose 73 mg/dl (74-100); Iron 56 ug/dL (37-170); Total Protein,Serum 6.2 g/dl (6.3-8.2)
[2025-04-30 16:16] LABS: Alanine Aminotransferase 14 U/L (12-78); Aspartate Amino Transferase 26 U/L (14-36)
[2025-04-30 16:21] LABS: Total Iron Binding Capacity 322 ug/dL (265-497)
[2025-04-30 16:35] LABS: Thyroid Stimulating Hormone 1.33 uIU/mL (0.465-4.68)
[2025-04-30 17:41] LABS: Folate 12.50 ng/mL
[2025-04-30 21:08] LABS: Vitamin B12 533 pg/mL (239-931)
== END 2025-04-30 23:59 | disposition home or self-care (01) ==
LOC: LAB.DROPOF 05-01 12:35
PROVIDERS: PCP Nurse Practitioner; Visit Provider Nurse Practitioner
DX: D69.3 Immune thrombocytopenic purpura (principal); D64.9 Anemia, unspecified; R68.83 Chills (without fever)
CPT/HCPCS: 80053; 82607; 82746; 83540; 83550; 84443; 85025